=== PATIENT | male | born 1940 | race Caucasian/White ===

== ENCOUNTER → 2017-07-13 12:58 | Outpatient (CLI) | payer MEDICARE, SELFPAY ==
--- NOTE | 2017-07-13 13:00 | ECHOD_ITS ---
Reason For Study: CAD Procedure This was a 2D Doppler, Color Flow transthoracic echocardiogram. The study was technically difficult. The study was technically limited. Poor parasternal windows. Exam performed in department. Left Ventricle Normal size and thickness. The estimated ejection fraction is 65 %. Stage 1 diastolic dysfunction. No regional wall motion abnormalities noted. Right Ventricle Normal size and thickness. Normal systolic function. Atria Normal left atrium. Normal right atrium. Normal atrial septum. Mitral Valve The mitral valve is structurally normal. No prolapse or stenosis seen. Tricuspid Valve Normal tricuspid valve. Unable to estimate RV systolic pressure/pulmonary artery pressure due to technically difficult study. Aortic Valve Trisinus/trileaflet aortic valve. Normal aortic valve. Pulmonic Valve The pulmonic valve is not well visualized. Great Vessels Normal aortic root. Normal arch. Normal inferior vena cava. Inferior vena cava collapse with sniff. Pericardium/Pleural No pericardial effusion. MMode/2D Measurements & Calculations LVIDd: 3.8 cm IVSd: 1.1 cm Ao root diam: 3.4 cm LVIDs: 2.5 cm LVPWd: 0.94 cm LA dimension: 2.5 cm RVDd: 3.2 cm FS: 33.6 % LAV(MOD-bp): 28.9 ml LA A4 area: 11.2 cm2 RA A4 area: 9.1 cm2 LAV(MOD-bp) Indexed: 13.9 ml/m2 LAV(MOD-sp2): 32.0 ml LAV(MOD-sp4): 23.9 ml Doppler Measurements & Calculations MV E max joni: 50.2 cm/sec Ao V2 max: 153.5 cm/sec LV V1 max: 143.5 cm/sec MV A max joni: 85.5 cm/sec Ao max P.4 mmHg LV V1 max P.2 mmHg MV E/A: 0.59 PA V2 max: 121.8 cm/sec Interpretation Summary The estimated ejection fraction is 65 %. Stage 1 diastolic dysfunction. Unable to estimate RV systolic pressure/pulmonary artery pressure due to technically difficult study. The study was technically difficult. There is no comparison study available. Ordering Physician: Haider Caldwell Referring Physician: LORENA FIGUEROA Performed By: Iman Suarez, OBI, RVT
== END ==
PROVIDERS: Family Provider Family Medicine; PCP Family Medicine; Visit Provider Internal Medicine Cardiovascular Disease
DX: I25.10 Atherosclerotic heart disease of native coronary artery without angina pectoris (principal)
CPT/HCPCS: 93306

== ENCOUNTER → 2017-07-14 09:02 | Outpatient (CLI) | payer MEDICARE, SELFPAY ==
[2017-06-28 15:28] VITALS: BP 120/60; BMI 26.0
[2017-07-14 10:13] LABS: AST(SGOT) 11 U/L (15-37); Alanine Aminotransfer ALT/SGPT 20 U/L (16-61); Albumin, Serum 3.8 g/dL (3.2-5.0); Alkaline Phosphatase 80 U/L (45-117); Bilirubin, Direct 0.15 mg/dL (0.00-0.30); Cholesterol 161 mg/dL (200); Globulin 3.5 g/dL (2.2-4.2); High Density Lipoprotein 51 mg/dL; Protein, Total 7.3 g/dL (6.4-8.2); Triglycerides 105 mg/dL; Very Low Density Lipoprotein 21 mg/dL (5-40)
== END ==
PROVIDERS: Family Provider Family Medicine; PCP Family Medicine; Visit Provider Internal Medicine Cardiovascular Disease
DX: R07.9 Chest pain, unspecified (principal); E11.9 Type 2 diabetes mellitus without complications; E78.5 Hyperlipidemia, unspecified; I25.118 Atherosclerotic heart disease of native coronary artery with other forms of angina pectoris
CPT/HCPCS: 36415; 80061; 80076

== ENCOUNTER → 2017-07-29 12:07 | Outpatient (CLI) | payer MEDICARE, SELFPAY ==
--- NOTE | 2017-07-29 13:00 | STEWCON_ITS ---
Reason For Study: Chest Pain, CAD Stress Results Protocol: Jeffrey Protocol Maximum Predicted HR: 143 bpm Target HR: 122 bpm% Max imum Predicted HR: 92 % DurationHeart Rate Stage (mm:ss) (bpm) BPCom ment Baseline 82 136/82 Definity 4 ML Diluted Given Jeffrey Protocol Stage I 3:00 82 204/80 Jeffrey Protocol Stage II 1:45 13 1 / Recovery 90 154/90 Stress Duration: 4:45 mm:ss Maximum Stress HR: 131 bpmM ETS: 7 Baseline Echocardiogram Findings The estimated ejection fraction is 65 %. Stress Echo Wall motion Data Resting WMIntermediate WMStress WM Resting Wall Motion Wall Motion Stress No regional wall motion Mid-Anterior : Mildly abnormalities noted. hypokinetic. Lateral [place] : Mildly hypokinetic. EKG Data Normal intervals are noted. The patient exercised according to the regular Jeffrey protocol for a total duration of 4:45. The maximum heart rate attained was 131 beats per minute. This was 91% of maximum predicted heart rate. The patient exercised into stage 2 of the Jeffrey protocol. At peak exercise, upsloping ST changes only were noted, which did not meet the criteria for ischemia. No clinical angina was noted. Interpretation Summary The estimated ejection fraction is 65 %. Mid-Anterior : Mildly hypokinetic Lateral [place] : Mildly hypokinetic Abnormal, adequate, treadmill echocardiogram. Positive for ischemia by echocardiographic criteria. Patient developed mid anterior lateral and anterior apical hypokinesis at peak exercise. Hypertensive blood pressure response to exercise. Rare PVCs and one ventricular triplet during exercise. Below average exercise capacity for age. No anginal symptoms noted. Test terminated due to dyspnea. No complications. Patient referred for left heart catheterization in the next few days. Ordering Physician: Haider Caldwell Referring Physician: YAIR Piedra M.D. Performed By: Iman Suarez, OBI, RVT
--- NOTE | 2017-07-29 13:14 | RAD_ITS ---
STUDY: X-RAY CHEST REASON FOR EXAM: Male, 77 years old. Chronic shortness of breath. TECHNIQUE: 2 views of the chest were obtained COMPARISON: None. FINDINGS: No lung consolidation or pneumothorax seen. Left lingular subsegmental atelectasis and/or scarring. There are likely chronic deformities of the right-sided posterior ribs present. Degenerative changes in the thoracic spine. Cardiac size is within normal limits. Subtle blunting of the costophrenic angles noted may relate with pleural thickening or small pleural effusions. Subtle nodular density on the lateral radiograph noted possibly overlapping vasculature however this can be further assessed with chest CT to exclude underlying mass is not seen on the AP radiograph however RAD/Chest PA and Lateral IMPRESSION: No evidence for lung consolidation or pneumothorax. Blunting of the costophrenic angles with flattening of the hemidiaphragm may relate with COPD. Subtle nodular density noted on the lateral radiograph and not appreciated on the AP radiograph possibly overlapping vasculature however this can be further assessed with chest CT to exclude underlying mass. Electronically Signed: Aryan Branch, at 13:01 EST Tel , Service support ,
[2017-07-29 15:14] LABS: Hemoglobin 16.7 g/dl (13.0-16.5); Mean Corp Hgb Conc 34.1 g/gl (32-36); Mean Corpuscular Hgb 30.6 pg (27.0-32.0); Mean Corpuscular Volume 89.7 fL (80-94); Mean Platelet Vol. 10.9 fl (6.2-12.0); Platelet Count 223 K/mm3 (150-450); RBC Distribution Width CV 12.9 % (11.6-14.6); RBC Distribution Width SD 42.2 fl (35.1-43.9); Red Blood Count 5.46 M/mm3 (4.6-6.2); White Blood Count 6.9 K/mm3 (4.4-11.0)
[2017-07-29 15:22] LABS: Anion Gap 8 (5-15); BUN 22 mg/dL (7-18); BUN/Creat Ratio 22.9 RATIO (10-20); Chloride 105 mmol/L (98-107); Creatinine, Serum 0.96 mg/dL (0.70-1.30); EST Glomerular Filtration Rate 81 mL/min (>60); Est Glom Filt Rate - Afr Amer 98 mL/min (>60); Glucose 123 mg/dL (74-106); Potassium 4.4 mmol/L (3.5-5.1); Sodium Level 139 mmol/L (136-145)
[2017-07-29 15:28] LABS: Prothrombin Time (Protime)PT. 12.5 SECONDS (11.7-14.9)
[2017-07-29 15:29] LABS: Partial Thromboplast Time 32.7 Seconds (24.1-36.2)
[2017-07-29 15:33] LABS: Scan Indicated on CBC? Y/N NO
== END ==
PROVIDERS: Family Provider Family Medicine; PCP Family Medicine; Visit Provider Internal Medicine Cardiovascular Disease
DX: R07.9 Chest pain, unspecified (principal); I25.10 Atherosclerotic heart disease of native coronary artery without angina pectoris; R06.02 Shortness of breath; R94.39 Abnormal result of other cardiovascular function study
CPT/HCPCS: 36415; 71046; 80048; 85027; 85610; 85730; 93017; 93350; Q9957; A4216; C8928

== ENCOUNTER → 2017-08-01 09:29 | Outpatient (CLI) | payer MEDICARE, SELFPAY ==
--- NOTE | 2017-08-01 09:38 | RAD_ITS ---
STUDY: AIR-CONTRAST UPPER GI SERIES. REASON FOR EXAM: Male, 77 years old. Gastroesophageal reflux disease. History of the head and neck cancer and radiation therapy. FLUOROSCOPY TIME (if supplied): (0:54) minutes/seconds TECHNIQUE: The patient ingested barium. Multiple images of the esophagus, stomach and duodenum were obtained. COMPARISON: None. FINDINGS: I suspect aphthous ulcers within the esophagus. There is no evidence of obstruction. No mass lesion is seen. There is no evidence of gastroesophageal reflux. The stomach and duodenum are unremarkable. RAD/Upper GI Series Only IMPRESSION: Findings suggestive of aphthous ulcers of the esophagus. Electronically Signed: Lance Sibley MD at 15:51 EST Tel [phone], Service support ,
== END ==
PROVIDERS: Family Provider Family Medicine; PCP Family Medicine; Visit Provider Surgery
DX: K21.9 Gastro-esophageal reflux disease without esophagitis (principal)
CPT/HCPCS: 74246

== ENCOUNTER 2017-08-02 06:51 | Day surgery (SDC) | payer MEDICARE, SELFPAY ==
[2017-08-01 11:24] VITALS: BMI 26.0
[2017-08-02] VITALS (22 sets, daily range): BP systolic 144–187; BP diastolic 59–95; PULSE 53–67; RESP 16–22; TEMP 36.2–36.9; O2SAT 94–98; BMI 26.6; BMI 26.0
--- NOTE | 2017-08-02 09:44 | CL.I_ITS ---
Patient Name: JOSE ARMANDO ARNETT Study Date: 08/02/2017 Performing: Haider Caldwell MD Ht: 72.05 inches 183 cm : 1940 Wt: 191.8 lbs 87 kg Age: 77 Gender: male BSA: 2.09 PROCEDURE(S) PERFORMED [id number]/LV [id number] W OR WO PTCA, SINGLE CORONARY ARTERY [id number] W OR WO PTCA, EACH ADD'L ARTERY, SAME MAJOR CLINICAL PROFILE AND CO-MORBIDITIES INDICATIONS: Unstable Angina Stress/Imaging Stress Echocardiogram: Yes Result: Positive High Risk Stress Echocardiogram: Posit meghana High Risk Angina Classification Anginal Classification w/in 2 Weeks: CCS II CAD Presentations: Unstable angina. Comorbidities/Risk Factors: Current/Recent Smoker (< 1year) Hypertension Dyslipidemia Diabetes Mellitus: Diabetes Therapy: Oral CONCLUSIONS Double vessel CAD of the LAD and DIAG#1 Non obstructive coronary arteries Normal LV size, wall motion,and systolic function Normal Left Ventricular End Diastolic Pressure Successful PTCA/BEATRIZ of the of mid LAD with a 3.0 x 16 Promus Synergy; 75%-->0%, no dissection. Successful PTCA/BEATRIZ of the mid DIAG#1 with a 2.25 x 8 promus Synergy; 75%-->0%, no dissection. Successful PCI with PTCA to the ostial DIAG#1 with a 2.0 x 8 Balloon after LAD stent deployment; 85%- ->40%, no dissection. RECOMMENDATIONS Referred for immediate PCI Highly recommend quitting all tobacco products Follow up with primary home visitor Risk factor modification ASA Indefinitley Plavix for at least 12 months Routine post interventional care Refer for Outpatient Cardiac Rehab Manual sheath removal per protocol Medical management of distal LAD/DIAG#2 due to complex bifurcating lesion. IF pt has recurrent angin a in future, will consider PCI of distal LAD and DIAG, as well as FFR of mid RCA. Manual sheath removal in laborer cook house. DESCRIPTION OF PROCEDURE The patient arrived to the procedure lab. The risks and benefits of the procedure as well as a full d escription of our services here and lack of surgical backup were fully explained to the patient and/o r their significant other prior to the catheterization. The Timeout was completed, verifying the jama ect patient and procedure. The patient's procedural site was prepped and draped in the usual fashion. Local anesthetic was given subcutaneously to right groin region with Lidocaine 2%. Using a modified Seldinger technique, arterial access was obtained via the right femoral artery, a 4Fr sheath was inse rted. Left Coronary Artery selective angiography was performed in multiple views using a 4 Fr. JL5 c atheter. Right Coronary Artery selective angiography was then performed in multiple views using a 4 F r. 3DRC catheter. Left Ventriculography was performed in HSU projection using a 4 Fr. Pigtail cathete r. LV to AO pullback pressures were then recorded Arterial sheath was exchanged for a 6 Fr 45cm Sheath 3.75 EBU Guide catheter was inserted and engaged into the LCA. BMW Guide wire was advanced to the LAD. 2x12 Emerge Balloon catheter was inserted. Bal loon catheter was advanced across lesion in the LAD, mid. PTCA balloon inflated at 12 atms for 10 sec s PTCA balloon inflated at 12 atms for 8 secs BMW #2 Guide wire was advanced to the 1st Diagonal. 2x8 Emerge Balloon catheter was inserted. Balloon catheter was advanced across lesion in the first diago nal, mid. PTCA balloon inflated at 6 atms for 30 secs PTCA balloon inflated at 6 atms for 20 secs 2.2 5x8 Synergy Drug Eluting stent was inserted Drug Eluting stent was advanced across the lesion in the first diagonal, mid. 3x16 Synergy Drug Eluting stent was inserted Drug Eluting stent was advanced acr oss the lesion in the LAD, mid. Angiogram performed post stent deployment. BMW Guide wire was advance d to the 1st Diagonal. 2x8 Emerge Balloon catheter was inserted. Balloon catheter was advanced across lesion in the first diagonal, ostial. PTCA balloon inflated at 6 atms for 8 secs PTCA balloon inflat ed at 8 atms for 22 secs PTCA balloon inflated at 12 atms for 14 secs Angiogram performed post balloo n dilatation. Arterial sheath was exchanged for a 6 Fr 11cm Sheath. . The arterial sheath was suture d in place and capped. The arterial sheath was pulled and manual compression applied until hemostasis is achieved.. CORONARY ANGIOGRAPHY DOMINANCE: Right Dominant LEFT HEART ASSESSMENT Left Ventricular Ejection Fraction: by LV Gram 65 % Normal Left Ventricular systolic function Normal Left Ventricular End Diastolic Pressure Normal LV wall motion LEFT MAIN: Angiographically normal LEFT ANTERIOR DECENDING ARTERY: MID LAD: 75 % Stenosis DISTAL LAD: 50 % Stenosis DIAGONAL 1: Mid - 75 % Stenosis DIAGONAL 2: Ostial - 60 % Stenosis CIRCUMFLEX ARTERY: Mild luminal irregularities less than 30% RIGHT CORONARY ARTERY: MID RCA: 60 % Stenosis INTERVENTION INFORMATION LESION SITE: LAD (Mid) Lesion Complexity: Non-High/Non-C, lesion at bifurcation: Yes, thrombus present: No, culprit lesion: Yes, lesion length: 16 mm, culprit lesion: Yes Pre Stenosis: 75 % Pre intervention SADAF flow: 3 PROCEDURE: Drug Eluting Stent with pre dilatation. Post Stenosis: 0 % Post intervention SADAF flow: 3 Lesion Devices: Rivera .014 BMW Mims Straight 190cm Research Journalisttronic 6 Fr EBU3.75 100cm Guide Catheter Michael Sci EMERGE MR 2.00x12 BALLOON Michael Sci Synergy MR BEATRIZ 3.00x16 LESION SITE: 1st Diagonal (Mid) Lesion Complexity: Non-High/Non-C, lesion at bifurcation: No, thrombus present: No, culprit lesion: N o Pre Stenosis: 75 % Pre intervention SADAF flow: 3 PROCEDURE: Drug Eluting Stent with pre dilatation. Post Stenosis: 0 % Post intervention SADAF flow: 3 Lesion Devices: Rivera .014 BMW Mims Straight 190cm Michael Sci EMERGE MR 2.00x08 BALLOON Michael Sci Synergy MR BEATRIZ 2.25x08 LESION SITE: 1st Diagonal (Ostial) Lesion Complexity: Non-High/Non-C, lesion at bifurcation: Yes, thrombus present: No, lesion length: 8 mm, culprit lesion: No Pre Stenosis: 85 % Pre intervention SADAF flow: 3 PROCEDURE: Balloon Angioplasty 40 % Post intervention SADAF flow: 3 Lesion Devices: Rivera .014 BMW Mims Straight 190cm Michael Sci EMERGE MR 2.00x08 BALLOON COMPLICATIONS No Complications PROCEDURE MEDICATIONS Oxygen: 2 L/min via nasal cannula Heparin 4000 unit(s) IV 08/02/2017 08:55:44 Nitro 200 mcg IC 08/02/2017 08:56:35 Nitro 200 mcg IC 08/02/2017 08:56:35 SUMMARY OF HEMODYNAMIC DATA Time AIR REST ECG 07:28:09 ECG 07:28:20 AO 124/71 (93) SA 08:42:37 LV 116/2, 5 08:49:17 LV 129/4, 9 08:49:43 LVp 126/2, 7 08:49:49 AOp 134/66 (96) 08:49:54 Signed By Haider Caldwell MD On 08/02/2017 10:08:25 Signed By Haider Caldwell MD On 08/02/2017 09:43:48 Haider Caldwell MD
[2017-08-02 10:06] LABS: ACT Activated Clotting Time 147 sec (74-137)
--- NOTE | 2017-08-02 10:20 | EKG12_ITS ---
Test Reason : Blood Pressure : / mmHG Vent. Rate : 056 BPM Atrial Rate : 056 BPM P-R Int : 172 ms QRS Dur : 074 ms QT Int : 414 ms P-R-T Axes : 075 069 064 degrees QTc Int : 399 ms Sinus bradycardia Otherwise normal ECG When compared with ECG of 12-FEB-2010 15:11, No significant change was found Confirmed by RAISA MAO, YARITZA ([id number]), editorial director JOANA AARON ([id number]) on 08/03/2017 2:40:47 PM Referred By: Haider Caldwell Confirmed By:YARITZA KLINE MD
[2017-08-02 10:31] LABS: Bedside Glucose 99 mg/dL (70-110)
[2017-08-02 10:37] LABS: Hematocrit 43.2 % (40-54); Hemoglobin 14.6 g/dl (13.0-16.5); Mean Corp Hgb Conc 33.8 g/gl (32-36); Mean Corpuscular Hgb 30.8 pg (27.0-32.0); Mean Corpuscular Volume 91.1 fL (80-94); Mean Platelet Vol. 10.2 fl (6.2-12.0); Platelet Count 192 K/mm3 (150-450); RBC Distribution Width CV 12.8 % (11.6-14.6); RBC Distribution Width SD 42.4 fl (35.1-43.9); Red Blood Count 4.74 M/mm3 (4.6-6.2); White Blood Count 6.4 K/mm3 (4.4-11.0)
[2017-08-02 10:41] LABS: Scan Indicated on CBC? Y/N NO
[2017-08-02 10:48] LABS: CPK Total, Creatine Kinase 73 U/L (39-308)
--- NOTE | 2017-08-02 11:12 | CRPHASE1 ---
Patient Data/Charges Former Patient:: Phase I Customer Success Director:: Haider Caldwell Admit Date:: 08/02/17 Phase I Charge:: Level I - Education Risk Factors/Lifestyle Smoking Status: Current every day smoker Packs Smoked per Day: 1 Hx Hypertension: Yes Hx Diabetes Mellitus Type 2: No - ON MEDS Height: 1.83 m Weight:: 87.09 kg BMI: 26.0 Caffeine: Yes Risk Factor for Sedentary Lifestyle: Moderate Risk Family History: Family History (Last Reviewed 07/26/17 @ 08:11 by Teri Fragoso) Father Myocardial infarction CAD (coronary artery disease) Sudden cardiac Mother Congestive heart failure Sister No problems noted. Family History: Diabetes, Heart Disease Past Cardiac Illness: Coronary Artery Disease, Other - PREVIOUS CATH 2001 ON MEDS/DIET Phase I Education Given On:: [place], Nutrition, Antiplatelet medication, CHF, Smoking cessation, Diabetes - Type II Issues Affecting Care:: None Knowledge of Condition:: Yes Hospital Course Pain Description: Burning Cardiac Cath Date:: 08/02/17 Medical/Surgical History [place]:: No Pulmonary:: Yes COPD:: Yes Diabetes:: Yes Hypertension:: Yes GERD:: Yes Discharge/Home/Social Eval Discharge Disposition: Home Marital Status: Patient Lives With::
[2017-08-02] MEDS: Nitroglycerin Oint 1 INCH PACKET TRANSDERM. (11:15)
--- NOTE | 2017-08-02 11:18 | CRPHASE1_ITS ---
Patient Data/Charges Former Patient:: Phase I Production Material Coordinator:: Haider Caldwell Admit Date:: 08/02/17 Phase I Charge:: Level I - Education Risk Factors/Lifestyle Smoking Status: Current every day smoker Packs Smoked per Day: 1 Hx Hypertension: Yes Hx Diabetes Mellitus Type 2: No - ON MEDS Height: 1.83 m Weight:: 87.09 kg BMI: 26.0 Caffeine: Yes Risk Factor for Sedentary Lifestyle: Moderate Risk Family History: Family History (Last Reviewed 07/26/17 @ 08:11 by Teri Fragoso) Father Myocardial infarction CAD (coronary artery disease) Sudden cardiac Mother Congestive heart failure Sister No problems noted. Family History: Diabetes, Heart Disease Past Cardiac Illness: Coronary Artery Disease, Other - PREVIOUS CATH 2001 ON MEDS/DIET Phase I Education Given On:: [place], Nutrition, Antiplatelet medication, CHF, Smoking cessation, Diabetes - Type II Issues Affecting Care:: None Knowledge of Condition:: Yes Hospital Course Pain Description: Burning Cardiac Cath Date:: 08/02/17 Medical/Surgical History [place]:: No Pulmonary:: Yes COPD:: Yes Diabetes:: Yes Hypertension:: Yes GERD:: Yes Discharge/Home/Social Eval Discharge Disposition: Home Marital Status: Patient Lives With::
--- NOTE | 2017-08-02 11:20 | CRPH1.INST_ITS ---
General Education CAD and cardiac anatomy and function:: Patient communicates acknowledgment, Family communicates acknowledgment Explanation of diagnoses and procedures:: Patient communicates acknowledgment, Family communicates acknowledgment Sign/Symptoms of NM:: Patient communicates acknowledgment, Family communicates acknowledgment Antiplatelet therapy: Patient communicates acknowledgment, Family communicates acknowledgment Proper use of NTG-SL: Patient communicates acknowledgment, Family communicates acknowledgment Emergency procedures and activation of EMS: Patient communicates acknowledgment , Family communicates acknowledgment Compliance of all prescribed medications: Patient communicates acknowledgment, Family communicates acknowledgment Smoking Patient Nicotine/Smoking Risk Factors Are:: Cigarettes - 60 years Nicotine/Smoking Response Code:: Patient communicates acknowledgment, Family communicates acknowledgment - not interested Dyslipidemia Recommendations Include:: Lipid profile not available Overweight/Obesity Patient Overweight/Obesity Risk Factors Are:: Overweight = 26-29 Overweight/Obesity:: Patient communicates acknowledgment, Family communicates acknowledgment Hypertension Recommendations Include:: Maintain BP <130/85, BP <130/80 if diabetic Hypertension:: Patient communicates acknowledgment, Family communicates acknowledgment Heart Disease Patient Heart Disease Risk Factors Are:: Family history of heart disease < 65 years old, Previous cardiac event Heart Disease Response Code:: Patient communicates acknowledgment, Family communicates acknowledgment Diabetes Diabetes:: Patient communicates acknowledgment, Family communicates acknowledgment - ON MEDS Metabolic Syndrome Recommendations Include:: Patient is diabetic Sedentary Patient Sedentary Risk Factors Are:: Lack of regular exercise Sedentary Response Code:: Patient communicates acknowledgment, Family communicates acknowledgment Stress Patient Stress Risk Factors Are:: Patient denies stress as a risk factor
[2017-08-02 11:41] LABS: M R Staph aureus DNA By PCR Negative (Negative); Probe Check PASS; Specimen Processing Control PASS
[2017-08-02] MEDS: Albuterol 2.5 MG/3 ML VIAL.NEB. INHALATION ×2 (13:15→18:34)
--- NOTE | 2017-08-02 15:57 | PCM.PN.BLA ---
Progress Note Pt. is not on a beta bety d/t underlying history of Sinus Bradycardia.
--- NOTE | 2017-08-02 16:11 | DCINST_ITS ---
Discharge Diet: Low fat/ Low Cholesterol Discharge Activity: Return to Normal Activity May shower in (days): 1 May resume sexual activity in: 1-2 weeks Lifting Restrictions: Do not lift anything greater than 10 pounds for three days Call your doctor if your incision/area has: Continuous Slow Oozing, Sudden Increased Bleeding, Increased Pain/ Swelling, Increased Redness, Foul Smelling Discharge, Swelling at the incision site Call your doctor if you observe: Fever of 101 or Higher, Shortness of breath, Chest pain Remove Dressing in (days):: 1 Cleanse incision/area with: Soap & Water Additional Instructions: You will be on Plavix for at least one year. If anyone asks you to stop it, please call the [facility] first. If you run low on pills or need a new prescription please call our office at [phone]. You will be on aspirin for life. You are schedule for an office visit follow-up appointment with Dwaine Savage Nurse Practitioner, on September 13 at 10:30 AM in the office. Allergies/Adverse Reactions: Allergies No Known Allergies Allergy (Verified 07/26/17 08:12) Medications to take at Discharge albuterol sulfate 2.5 mg/3 mL (0.083 %) solution for nebulization 2.5 mg INHALATION BID ml 06/24/17 aspirin 81 mg tablet,delayed release 81 mg PO QDAY 06/24/17 budesonide-formoterol HFA 160 mcg-4.5 mcg/actuation aerosol inhaler 2 puff INHALATION Q12H 06/24/17 cyanocobalamin (vit B-12) 1,000 mcg tablet 1,000 mcg PO QDAY 06/24/17 levothyroxine 150 mcg capsule 150 mcg PO QDAY cap 06/24/17 lorazepam 0.5 mg tablet 0.5 mg PO QDAY PRN tab 06/24/17 omeprazole 20 mg capsule,delayed release 20 mg PO QDAY 06/24/17 paroxetine 20 mg tablet 20 mg PO QDAY 06/24/17 thiamine HCl (vitamin B1) 100 mg tablet 50 mg PO QDAY tab 06/24/17 atorvastatin 80 mg tablet 80 mg PO QDAY 06/28/17 lisinopril 10 mg tablet 10 mg PO BID tab 06/28/17 metformin 500 mg tablet 500 mg PO DAILY tab 07/26/17 Clopidogrel Bisulfate [Clopidogrel] 75 mg PO DAILY 08/01/17 Isosorbide Mononitrate [Imdur] 30 mg PO DAILY tablet 08/03/17 Primary Care Physician: Xander Piedra III, MD [Primary Care Provider] - Please Follow Up With: Dwaine Huerta - [facility] Nurse Practitioner When: September 13, 2017 at 10:30 AM Please Follow Up With: [facility] RN/MA - blood pressure check When: August 19, 2017 at 10:00 AM Cardiac Rehabilitation Info Cardiac Rehabilitation Program Information: Cardiac Rehabilitation is important for patients like you who are recovering from a heart problem. Cardiac rehabilitation programs are recognized as integral to the continued care of the patient with coronary heart disease. The cardiac rehabilitation program is designed to optimize a patient's physical, psychological, and social functioning. Health day care supervisor work in cardiac rehabilitation programs and assist you with getting the treatments you need to get stronger and healthier - like exercise, healthy eating habits, and medications. Cardiac rehabilitation has been show to help people with heart problems live longer and have better life enjoyment than people who do not go to cardiac rehabilitation. Please contact the Cardiac Rehabilitation Program at [facility] at in two weeks if you have not heard from them.
[2017-08-02] MEDS: Thiamine Hydrochloride 100 MG Tablet 50 MG PO (16:34)
[2017-08-02] MEDS: Pantoprazole Sodium 20 MG Tablet PO (16:34)
[2017-08-02] MEDS: Cyanocobalamin 500 MCG Tablet 1000 MCG PO (16:35)
[2017-08-02 16:36] LABS: Hematocrit 41.8 % (40-54); Mean Corp Hgb Conc 33.5 g/gl (32-36); Mean Corpuscular Hgb 30.6 pg (27.0-32.0); Mean Corpuscular Volume 91.5 fL (80-94); Mean Platelet Vol. 9.8 fl (6.2-12.0); Platelet Count 174 K/mm3 (150-450); RBC Distribution Width CV 13.1 % (11.6-14.6); RBC Distribution Width SD 43.3 fl (35.1-43.9); Red Blood Count 4.57 M/mm3 (4.6-6.2); White Blood Count 5.5 K/mm3 (4.4-11.0)
[2017-08-02 16:37] LABS: Scan Indicated on CBC? Y/N NO
[2017-08-02 16:45] LABS: Bedside Glucose 133 mg/dL (70-110)
[2017-08-02 16:52] LABS: CPK Total, Creatine Kinase 60 U/L (39-308)
[2017-08-02] MEDS: Atorvastatin Calcium 80 MG Tablet PO (18:05)
[2017-08-02] MEDS: Budesonide Respules 0.5 MG/2 ML AMPUL.NEB. INHALATION (18:34)
[2017-08-02] MEDS: 0.9% NaCl Peripheral Flush Adult/Peds IV (21:13)
[2017-08-02] MEDS: Lisinopril 10 MG Tablet PO (21:13)
[2017-08-02 21:27] LABS: Hemoglobin 13.4 g/dl (13.0-16.5); Mean Corp Hgb Conc 33.5 g/gl (32-36); Mean Corpuscular Hgb 30.7 pg (27.0-32.0); Mean Corpuscular Volume 91.7 fL (80-94); Mean Platelet Vol. 9.8 fl (6.2-12.0); Platelet Count 171 K/mm3 (150-450); RBC Distribution Width CV 12.8 % (11.6-14.6); RBC Distribution Width SD 42.1 fl (35.1-43.9); Red Blood Count 4.36 M/mm3 (4.6-6.2); White Blood Count 6.1 K/mm3 (4.4-11.0)
[2017-08-02 21:31] LABS: Scan Indicated on CBC? Y/N NO
[2017-08-02 21:47] LABS: CPK Total, Creatine Kinase 56 U/L (39-308)
[2017-08-02 22:26] LABS: Bedside Glucose 170 mg/dL (70-110)
[2017-08-03] VITALS (14 sets, daily range): BP systolic 134–176; BP diastolic 53–97; PULSE 33–78; RESP 12–24; TEMP 36.6–37; O2SAT 94–98
[2017-08-03 02:06] LABS: Bedside Glucose 129 mg/dL (70-110)
[2017-08-03 04:27] LABS: Hematocrit 40.5 % (40-54); Hemoglobin 13.2 g/dl (13.0-16.5); Mean Corp Hgb Conc 32.6 g/gl (32-36); Mean Platelet Vol. 10.4 fl (6.2-12.0); Platelet Count 160 K/mm3 (150-450); RBC Distribution Width SD 43.5 fl (35.1-43.9); White Blood Count 7.1 K/mm3 (4.4-11.0)
[2017-08-03 04:28] LABS: Scan Indicated on CBC? Y/N NO
[2017-08-03 04:39] LABS: Anion Gap 7 (5-15); BUN 15 mg/dL (7-18); BUN/Creat Ratio 21.8 RATIO (10-20); Calcium,Total 7.9 mg/dL (8.5-10.1); Chloride 108 mmol/L (98-107); Cholesterol 115 mg/dL (200); Creatinine, Serum 0.69 mg/dL (0.70-1.30); EST Glomerular Filtration Rate 119 mL/min (>60); Est Glom Filt Rate - Afr Amer 143 mL/min (>60); Glucose 133 mg/dL (74-106); High Density Lipoprotein 40 mg/dL; Potassium 4.2 mmol/L (3.5-5.1); Sodium Level 142 mmol/L (136-145); Triglycerides 112 mg/dL; Very Low Density Lipoprotein 22 mg/dL (5-40)
[2017-08-03] MEDS: Levothyroxine 150 MCG Tablet PO (05:50)
--- NOTE | 2017-08-03 05:55 | EKG12_ITS ---
Test Reason : AM EKG Blood Pressure : / mmHG Vent. Rate : 060 BPM Atrial Rate : 060 BPM P-R Int : 154 ms QRS Dur : 086 ms QT Int : 386 ms P-R-T Axes : 076 068 054 degrees QTc Int : 386 ms Normal sinus rhythm with sinus arrhythmia Normal ECG When compared with ECG of 02-AUG-2017 10:33, MANUAL COMPARISON REQUIRED, DATA IS UNCONFIRMED Confirmed by RAISA MAO, YARITZA ([id number]), multimedia editor JOANA AARON ([id number]) on 08/10/2017 1:33:07 PM Referred By: Haider Caldwell Confirmed By:YARITZA KLINE MD
[2017-08-03 05:56] LABS: Bedside Glucose 144 mg/dL (70-110)
[2017-08-03] MEDS: Budesonide Respules 0.5 MG/2 ML AMPUL.NEB. INHALATION (06:48)
[2017-08-03] MEDS: Albuterol 2.5 MG/3 ML VIAL.NEB. INHALATION (06:48)
[2017-08-03] MEDS: Thiamine Hydrochloride 100 MG Tablet 50 MG PO (07:59)
[2017-08-03] MEDS: Pantoprazole Sodium 20 MG Tablet PO (08:00)
[2017-08-03] MEDS: Clopidogrel Bisulfate 75 MG Tablet PO (08:00)
[2017-08-03] MEDS: Lisinopril 10 MG Tablet PO (08:00)
[2017-08-03] MEDS: Cyanocobalamin 500 MCG Tablet 1000 MCG PO (08:00)
[2017-08-03] MEDS: Atorvastatin Calcium 80 MG Tablet PO (08:00)
[2017-08-03] MEDS: Aspirin E.C. 81 MG Tablet PO (08:00)
--- NOTE | 2017-08-03 10:04 | PCM.PN.CARD ---
Subjectve: Patient did well overnight, but did have an episode of severe hypertension this morning followed by bradycardia and tunnel vision. Right groin is clean/dry/intact without evidence of thrills, bruits or hematoma. Patient was started on low-dose Nitropaste last evening for hypertension and did well. The symptoms are similar to what he had at home prior to angioplasty. He is not on a beta-bety due to his bradycardia. CKs are negative. Hemoglobin and creatinine within nominal limits. Objective: Vital Signs Temp Pulse Resp BP Pulse Ox 97.9 F 65 16 153/97 H 96 08/03/17 04:00 08/03/17 07:00 08/03/17 06:50 08/03/17 06:00 08/03/17 06:50 Oxygen Delivery Method Room Air Weight: 191 lb 5.78 oz Body Mass Index (BMI) 26.6 Intake and Output for Last 24 Hours 08/01/17 08/02/17 08/03/17 23:59 23:59 23:59 Intake Total 2119 / 2119 1362 / 1362 Output Total 1000 / 1000 2100 / 2100 Balance 1119 / 1119 -738 / -738 General: Awake, Alert, Oriented x 3 HEENT: PERRL, EOMI, Sclera Non Icteric Neck: Supple, Good ROM, No Lymph Node Enlargement Lungs: Clear to auscultation Cardiovascular: Regular Rhythm, Normal S1, Normal S2, No Murmurs, No Rubs, No Gallops Vascular: No Carotid Bruits, Normal Femoral Pulses, Normal Radial Pulses, Normal Dorsalis Pedal Pulse, Normal Posterior Tibial Pulses Abdomen: Bowel Sounds Present, Soft, Non Tender, No HSM, No Organomegaly Extremities: No Cyanosis, No Clubbing, No edema Neurological: No Focal Motor or Sensory Deficit 08/02/17 10:26: WBC 6.4, RBC 4.74, Hgb 14.6, Hct 43.2, MCV 91.1, MCH 30.8, MCHC 33.8, RDW 12.8, RDW Differential 42.4, Plt Count 192, MPV 10.2 08/02/17 16:30: WBC 5.5, RBC 4.57 L, Hgb 14.0, Hct 41.8, MCV 91.5, MCH 30.6, MCHC 33.5, RDW 13.1, RDW Differential 43.3, Plt Count 174, MPV 9.8 08/02/17 21:15: WBC 6.1, RBC 4.36 L, Hgb 13.4, Hct 40.0, MCV 91.7, MCH 30.7, MCHC 33.5, RDW 12.8, RDW Differential 42.1, Plt Count 171, MPV 9.8 08/03/17 04:15: Sodium 142, Potassium 4.2, Chloride 108 H, Carbon Dioxide 27.0, Anion Gap 7, BUN 15, Creatinine 0.69 L, Est GFR (MDRD) Af Amer 143, Est GFR (MDRD) Non-Af 119, BUN/Creatinine Ratio 21.8 H, Glucose 133 H, Calcium 7.9 L, Triglycerides 112, Cholesterol 115, LDL Cholesterol 53, VLDL Cholesterol 22, HDL Cholesterol 40 08/03/17 04:15: WBC 7.1, RBC 4.40 L, Hgb 13.2, Hct 40.5, MCV 92.0, MCH 30.0, MCHC 32.6, RDW 13.0, RDW Differential 43.5, Plt Count 160, MPV 10.4 Rhythm: EKG: Normal sinus rhythm/sinus bradycardia, no acute changes. ECHO: Stress Test: Cardiac Cath: PCI: CT Surgery: Holter monitor: EPS: PPM: CXR: Chest CT Scan: Assessment/Plan 1. Coronary artery disease: The patient is status post angioplasty and drug-eluting stent to the mid LAD followed by stenting of the mid diagonal as well. Distal LAD/diagonal disease with left for medical management due to the complex nature of the bifurcating lesion. Patient had minimal disease of his left circumflex and mid RCA. This point the patient will continue baby aspirin and Plavix going forward, and we will initiate Imdur were 30 mg p.o. daily and titrate up from there. Given his symptomatic bradycardia and symptoms of tunnel vision related to it, I would hold off on beta-bety therapy at this time. Continue his lisinopril 10 mg p.o. twice daily at this time. We will hold the patient until this afternoon to ensure that his blood pressure has come down and that he is ambulated well in his groin is intact. The patient has no further symptoms we will then discharge him home. It appears he has symptomatic bradycardia possibly a vagal response to severe hypertension. 2. Hyperlipidemia: Continue statin based therapy. Repeat lipid profile after cardiac rehab. LDL is 53 and his HDL is 40. 3. Patient may be discharged home this afternoon if blood pressure, right groin are stable and he has no further symptoms. He will follow-up with Dr. Caldwell going forward. Code Visit Inpatient E&M: 96945 Subs Hosp L2
--- NOTE | 2017-08-03 10:08 | PN.CARD_ITS ---
Subjectve: Patient did well overnight, but did have an episode of severe hypertension this morning followed by bradycardia and tunnel vision. Right groin is clean/dry/ intact without evidence of thrills, bruits or hematoma. Patient was started on low-dose Nitropaste last evening for hypertension and did well. The symptoms are similar to what he had at home prior to angioplasty. He is not on a beta- bety due to his bradycardia. CKs are negative. Hemoglobin and creatinine within nominal limits. Objective: Vital Signs Temp Pulse Resp BP Pulse Ox 97.9 F 65 16 153/97 H 96 08/03/17 04:00 08/03/17 07:00 08/03/17 06:50 08/03/17 06:00 08/03/17 06:50 Oxygen Delivery Method Room Air Weight: 191 lb 5.78 oz Body Mass Index (BMI) 26.6 Intake and Output for Last 24 Hours 08/01/17 08/02/17 08/03/17 23:59 23:59 23:59 Intake Total 2119 / 2119 1362 / 1362 Output Total 1000 / 1000 2100 / 2100 Balance 1119 / 1119 -738 / -738 General: Awake, Alert, Oriented x 3 HEENT: PERRL, EOMI, Sclera Non Icteric Neck: Supple, Good ROM, No Lymph Node Enlargement Lungs: Clear to auscultation Cardiovascular: Regular Rhythm, Normal S1, Normal S2, No Murmurs, No Rubs, No Gallops Vascular: No Carotid Bruits, Normal Femoral Pulses, Normal Radial Pulses, Normal Dorsalis Pedal Pulse, Normal Posterior Tibial Pulses Abdomen: Bowel Sounds Present, Soft, Non Tender, No HSM, No Organomegaly Extremities: No Cyanosis, No Clubbing, No edema Neurological: No Focal Motor or Sensory Deficit 08/02/17 10:26: WBC 6.4, RBC 4.74, Hgb 14.6, Hct 43.2, MCV 91.1, MCH 30.8, MCHC 33.8, RDW 12.8, RDW Differential 42.4, Plt Count 192, MPV 10.2 08/02/17 16:30: WBC 5.5, RBC 4.57 L, Hgb 14.0, Hct 41.8, MCV 91.5, MCH 30.6, MCHC 33.5, RDW 13.1, RDW Differential 43.3, Plt Count 174, MPV 9.8 08/02/17 21:15: WBC 6.1, RBC 4.36 L, Hgb 13.4, Hct 40.0, MCV 91.7, MCH 30.7, MCHC 33.5, RDW 12.8, RDW Differential 42.1, Plt Count 171, MPV 9.8 08/03/17 04:15: Sodium 142, Potassium 4.2, Chloride 108 H, Carbon Dioxide 27.0, Anion Gap 7, BUN 15, Creatinine 0.69 L, Est GFR (MDRD) Af Amer 143, Est GFR ( MDRD) Non-Af 119, BUN/Creatinine Ratio 21.8 H, Glucose 133 H, Calcium 7.9 L, Triglycerides 112, Cholesterol 115, LDL Cholesterol 53, VLDL Cholesterol 22, HDL Cholesterol 40 08/03/17 04:15: WBC 7.1, RBC 4.40 L, Hgb 13.2, Hct 40.5, MCV 92.0, MCH 30.0, MCHC 32.6, RDW 13.0, RDW Differential 43.5, Plt Count 160, MPV 10.4 Rhythm: EKG: Normal sinus rhythm/sinus bradycardia, no acute changes. ECHO: Stress Test: Cardiac Cath: PCI: CT Surgery: Holter monitor: EPS: PPM: CXR: Chest CT Scan: Assessment/Plan 1. Coronary artery disease: The patient is status post angioplasty and drug- eluting stent to the mid LAD followed by stenting of the mid diagonal as well. Distal LAD/diagonal disease with left for medical management due to the complex nature of the bifurcating lesion. Patient had minimal disease of his left circumflex and mid RCA. This point the patient will continue baby aspirin and Plavix going forward, and we will initiate Imdur were 30 mg p.o. daily and titrate up from there. Given his symptomatic bradycardia and symptoms of tunnel vision related to it, I would hold off on beta-bety therapy at this time. Continue his lisinopril 10 mg p.o. twice daily at this time. We will hold the patient until this afternoon to ensure that his blood pressure has come down and that he is ambulated well in his groin is intact. The patient has no further symptoms we will then discharge him home. It appears he has symptomatic bradycardia possibly a vagal response to severe hypertension. 2. Hyperlipidemia: Continue statin based therapy. Repeat lipid profile after cardiac rehab. LDL is 53 and his HDL is 40. 3. Patient may be discharged home this afternoon if blood pressure, right groin are stable and he has no further symptoms. He will follow-up with Dr. Caldwell going forward. Code Visit Inpatient E&M: 19027 Subs Hosp L2
[2017-08-03] MEDS: Isosorbide Mononitrate 30 MG Tablet PO (10:28)
--- NOTE | 2017-08-03 11:42 | PCM.DC.CCA ---
Discharge Diet: Low fat/ Low Cholesterol Discharge Activity: Return to Normal Activity May shower in (days): 1 May resume sexual activity in: 1-2 weeks Lifting Restrictions: Do not lift anything greater than 10 pounds for three days Call your doctor if your incision/area has: Continuous Slow Oozing, Sudden Increased Bleeding, Increased Pain/ Swelling, Increased Redness, Foul Smelling Discharge, Swelling at the incision site Call your doctor if you observe: Fever of 101 or Higher, Shortness of breath, Chest pain Remove Dressing in (days):: 1 Cleanse incision/area with: Soap & Water Additional Instructions: You will be on Plavix for at least one year. If anyone asks you to stop it, please call the [facility] first. If you run low on pills or need a new prescription please call our office at [phone]. You will be on aspirin for life. You are schedule for an office visit follow-up appointment with Dwaine Savage Nurse Practitioner, on September 13 at 10:30 AM in the office. Allergies/Adverse Reactions: Allergies No Known Allergies Allergy (Verified 07/26/17 08:12) Medications to take at Discharge albuterol sulfate 2.5 mg/3 mL (0.083 %) solution for nebulization 2.5 mg INHALATION BID ml 06/24/17 aspirin 81 mg tablet,delayed release 81 mg PO QDAY 06/24/17 budesonide-formoterol HFA 160 mcg-4.5 mcg/actuation aerosol inhaler 2 puff INHALATION Q12H 06/24/17 cyanocobalamin (vit B-12) 1,000 mcg tablet 1,000 mcg PO QDAY 06/24/17 levothyroxine 150 mcg capsule 150 mcg PO QDAY cap 06/24/17 lorazepam 0.5 mg tablet 0.5 mg PO QDAY PRN tab 06/24/17 omeprazole 20 mg capsule,delayed release 20 mg PO QDAY 06/24/17 paroxetine 20 mg tablet 20 mg PO QDAY 06/24/17 thiamine HCl (vitamin B1) 100 mg tablet 50 mg PO QDAY tab 06/24/17 atorvastatin 80 mg tablet 80 mg PO QDAY 06/28/17 lisinopril 10 mg tablet 10 mg PO BID tab 06/28/17 metformin 500 mg tablet 500 mg PO DAILY tab 07/26/17 Clopidogrel Bisulfate [Clopidogrel] 75 mg PO DAILY 08/01/17 Isosorbide Mononitrate [Imdur] 30 mg PO DAILY tablet 08/03/17 Primary Care Physician: Xander Piedra III, MD [Primary Care Provider] - Please Follow Up With: Dwaine Huerta - [facility] Nurse Practitioner When: September 13, 2017 at 10:30 AM Please Follow Up With: [facility] RN/MA - blood pressure check When: August 19, 2017 at 10:00 AM Cardiac Rehabilitation Info Cardiac Rehabilitation Program Information: Cardiac Rehabilitation is important for patients like you who are recovering from a heart problem. Cardiac rehabilitation programs are recognized as integral to the continued care of the patient with coronary heart disease. The cardiac rehabilitation program is designed to optimize a patient's physical, psychological, and social functioning. Health vp care management work in cardiac rehabilitation programs and assist you with getting the treatments you need to get stronger and healthier - like exercise, healthy eating habits, and medications. Cardiac rehabilitation has been show to help people with heart problems live longer and have better life enjoyment than people who do not go to cardiac rehabilitation. Please contact the Cardiac Rehabilitation Program at [facility] at in two weeks if you have not heard from them.
--- NOTE | 2017-08-03 11:43 | PCM.PN.BLA ---
Progress Note Pt.'s blood pressure since starting Imdur is satisfactory with systolic blood pressure below 150. He will be seen in the [facility] office on August 19 at 10:00 for a blood pressure check. His medications will be titrated accordingly. A new prescription was written and given to patient to obtain upon discharge.
[2017-08-03 12:01] LABS: Bedside Glucose 282 mg/dL (70-110)
== END 2017-08-03 12:40 | disposition home or self-care (01) ==
LOC: CLSP 06:51 → ICU 09:14
PROVIDERS: Family Provider Family Medicine; PCP Family Medicine; Visit Provider Internal Medicine Cardiovascular Disease
DX: I25.10 Atherosclerotic heart disease of native coronary artery without angina pectoris (principal); E78.5 Hyperlipidemia, unspecified; I10 Essential (primary) hypertension; J44.9 Chronic obstructive pulmonary disease, unspecified; E03.9 Hypothyroidism, unspecified; E11.9 Type 2 diabetes mellitus without complications; I87.2 Venous insufficiency (chronic) (peripheral); F17.210 Nicotine dependence, cigarettes, uncomplicated
CPT/HCPCS: 80048; 80061; 82550; 82962; 85027; 85347; 87641; 92928; 92929; 93005; 93458; 94640; J7040; Q9967; A4216; C1725; C1769; C1874; C1887; C1894; C9600; C9601

== ENCOUNTER → 2017-08-05 09:41 | Outpatient (CLI) | payer MEDICARE, SELFPAY ==
[2017-08-02 11:16] VITALS: BMI 26.0
--- NOTE | 2017-08-05 09:43 | NM_ITS ---
CLINICAL: 77-year-old male with reported history of epigastric pain and nausea. SEMI-SOLID PHASE 99m Tc SULFUR COLLOID GASTRIC EMPTYING STUDY COMPARISON: Upper gastrointestinal series report 08/01/2017 FINDINGS: The patient was administered 1.1 mCi of 99m Tc sulfur colloid mixed with oatmeal and consumed per os. Image acquisitions in the anterior-posterior projections were obtained for 60 minutes. There is prompt visualization of the stomach. There is no gastroesophageal reflux identified. First order kinetics are maintained throughout the duration of the acquisitions. The T1/2 linear fit was calculated to be 64.44 minutes, (Normal: 12-56 minutes). NM/Gastric Emptying Study IMPRESSION: 1. ABNORMAL 99m Tc sulfur colloid semi-solid phase (oatmeal) gastric emptying imaging examination. A. There is mild delayed semi-solid phase gastric emptying compared to normal controls with maintained first order kinetics throughout all components of the examination. (Servando et al, J Nucl Med Tech 38: 186, 2010). Electronically Signed: Freeman Justice DO at 8:00 EST Tel , Service support ,
== END ==
PROVIDERS: Family Provider Family Medicine; PCP Family Medicine; Visit Provider Surgery
DX: R10.13 Epigastric pain (principal); R11.0 Nausea
CPT/HCPCS: 78264; A9541

== ENCOUNTER 2017-08-24 09:23 | Day surgery (SDC) | payer MEDICARE, SELFPAY ==
[2017-08-02 11:16] VITALS: BMI 26.0
[2017-08-24 09:34] VITALS: BP 156/87; PULSE 70; RESP 16; O2SAT 96
== END 2017-09-22 10:30 ==
LOC: EN 09:24 → ACINP 09:26
PROVIDERS: Family Provider Family Medicine; PCP Family Medicine; Visit Provider Surgery
PROC: F00ZJWZ Instrumental Swallowing and Oral Function Assessment using Swallowing Equipment (ICD-10-PCS; CPT 43235; principal; 2017-08-24 09:25)
DX: Z01.812 Encounter for preprocedural laboratory examination (principal)
CPT/HCPCS: J7120

== ENCOUNTER 2017-08-30 08:14 | Day surgery (SDC) | payer MEDICARE, SELFPAY ==
[2017-08-02 11:16] VITALS: BMI 26.0
[2017-08-30] VITALS (7 sets, daily range): BP systolic 101–129; BP diastolic 49–77; PULSE 56–74; RESP 16–20; TEMP 35.8–36.9; O2SAT 96–99; BMI 25.7
--- NOTE | 2017-08-30 | IMM_PTH ---
PATIENT: JOSE ARMANDO ARNETT LOC: EN U#:[id number] AGE/SX: 77/M ROOM: RE08/30/[address]: Dr. Charles Piedra MD : 1940 BED: DIS: 08/30/2017 SPEC #: [id number] RECD: 08/31/17 10:01 STATUS: ANTONETTE KANE #: [id number] REBECCA: 08/30/17 00:[address]: Charles Piedra DEPT: IMMUNOHISTOCHEMISTRY RECD BY: Lashawn Edwards ENTERED: 08/31/17 10:03 SP TYPE: IMMUNO OTHR DR: Dr. Xander Piedra III, MD Tissues: A - Stomach, NOS B - Cardioesophageal junction Procedures: H Pylori (initial) PHYSICIAN & INSTITUTION [place] [id number] SPECIMEN INFORMATION: Tissue Source: A ? Antrum biopsy, B ? Cardia biopsy Clinical Info: Esophageal dysphagia Specimen Number: [id number] A & B CPT code: 05861 x2 METHODOLOGY: Deparaffinized sections of prefer/formalin-fixed tissue or PAP/DQ stained slides are incubated with monoclonal/polyclonal antibodies/oligonucleotide probes. Localization is made via biotin free immunoperoxidase method. Appropriate controls are performed and reacted as expected. Results on target cell population are indicated in the following table: RESULTS: ANTIBODY / CLONE RESULT Block A H Pylori (polyclonal) negative Block B H Pylori (polyclonal) negative These tests were developed and their performance characteristics determined by [facility]. They may not have been cleared or approved by the U.S. Food and Drug Administration. The FDA has determined that such clearance or approval is not necessary. INTERPRETATION: A. Antrum, biopsy: Negative for Helicobacter pylori organisms. B. Cardia, biopsy: Negative for Helicobacter pylori organisms. AM:shauna 08/31/17
[2017-08-30 09:20] LABS: Bedside Glucose 126 mg/dL (70-110)
--- NOTE | 2017-08-30 10:22 | PCM.HP.STD ---
Problem List (1) Esophageal dysphagia Status: Acute History of Present Illness Date of Admission: 08/30/17 The patient is a 77 year old M who initially presented to me July 26. At that point he was complaining of upper abdominal pain bloating. Fluid reflux. Apparently he gurgles at night. Is a long-term heavy cigarette smoker and he continues to smoke. There is been no previous imaging evidence of hiatal hernia. November 28, 2015 and upper endoscopy done by Dr. Bynum suggested all findings normal. There was some mild chronic inactive gastritis. To help evaluate his situation get a barium swallow which suggested esophageal ulcers. The patient also had an attempted esophageal manometry but it has now become evident that the tip of the probe was turned back on itself. I believe clearly that the patient needs to have the esophagus and stomach further evaluated and he presents now for an upper endoscopy. Past Medical History Past Medical History (Chronic Problems): Chronic Problems (Last Reviewed 07/26/17 @ 08:11 by Teri Fragoso) Hypothyroidism (Chronic) Snoring (Chronic) Diabetes mellitus, type II (Chronic) Venous insufficiency (chronic) (peripheral) (Chronic) Hyperlipidemia (Chronic) COPD (chronic obstructive pulmonary disease) (Chronic) Pulmonary nodules (Chronic) per chest CT 06/25/2016 Tobacco use disorder (Chronic) Sinus bradycardia (Chronic) Atherosclerotic heart disease of [place] coronary artery with other forms of angina pectoris (Chronic) 06/29/[address] [facility] [address] Rico Bach: 60% stenosis LAD, no obstructive CAD History of left heart catheterization (Chronic) 06/29/[address] [facility] [address] Rico Bach: 60% stenosis LAD, no obstructive CAD Allergies No Known Allergies Allergy (Verified 07/26/17 08:12) Home Medications: Ambulatory Orders Medication Instructions Recorded albuterol sulfate 2.5 mg/3 mL 2.5 mg INHALATION BID ml 06/24/17 (0.083 %) solution for nebulization aspirin 81 mg tablet,delayed 81 mg PO QDAY 06/24/17 release budesonide-formoterol HFA 160 2 puff INHALATION Q12H 06/24/17 mcg-4.5 mcg/actuation aerosol inhaler cyanocobalamin (vit B-12) 1,000 1,000 mcg PO QDAY 06/24/17 mcg tablet levothyroxine 150 mcg capsule 150 mcg PO QDAY cap 06/24/17 lorazepam 0.5 mg tablet 0.5 mg PO QDAY PRN tab 06/24/17 paroxetine 20 mg tablet 20 mg PO QDAY 06/24/17 thiamine HCl (vitamin B1) 100 mg 50 mg PO QDAY tab 06/24/17 tablet atorvastatin 80 mg tablet 80 mg PO QDAY 06/28/17 lisinopril 10 mg tablet 10 mg PO BID tab 06/28/17 metformin 500 mg tablet 500 mg PO DAILY tab 07/26/17 Clopidogrel Bisulfate [Clopidogrel] 75 mg PO DAILY 08/01/17 glimepiride 1 mg tablet 1 mg PO QAM 08/04/17 isosorbide mononitrate ER 60 mg 60 mg PO QAM #30 tab 08/10/17 tablet,extended release 24 hr Surgical History: - - Previous heart catheterization Previous upper and lower endoscopy Smoking Status: Current every day smoker Review of Systems Constitutional: Denies: Anorexia Eyes: Denies: Blurred vision HEENT: Denies: Difficulty Hearing Cardiovascular: Denies: Chest Pain Respiratory: Reports: Cough Gastrointestinal: Reports: Abdominal Pain Genitourinary: Denies: Dysuria Musculoskeletal: Denies: Arm Pain Skin: Denies: Dryness Neurological: Denies: Balance problems Psychiatric: Denies: Anxiety Endocrine: Denies: Change in Body Habitus Hematologic/ Lymphatic: Denies: Adenopathy VTE Information - Inpt Only VTE Present on Admission: No Patient Problems: Active and Suspected Problems (Last Reviewed 07/26/17 @ 08:11 by Teri Fragoso) Esophageal dysphagia (Acute) - Physical Exam General: Alert, Oriented x3, Cooperative, No apparent distress HEENT: Atraumatic Oral: Moist Mucosa Neck: Supple Lungs: Clear to auscultation Cardiovascular: Regular rate Abdomen: Bowel Sounds Present, Soft, Non Tender Extremities: Clubbing Neurological: Cranial nerves II-XII grossly intact Psych/Mental Status: Normal Affect Vital Signs Temp Pulse Resp BP Pulse Ox 96.4 F L 74 16 129/77 H 99 08/30/17 08:59 08/30/17 08:59 08/30/17 08:59 08/30/17 08:59 08/30/17 08:59 Oxygen Delivery Method Room Air Weight: 190 lb Body Mass Index (BMI) 25.7 POC Glucose 08/30/17 09:14 POC Glucose 126 H Assessment/Plan Active and Suspected Problems (Last Reviewed 07/26/17 @ 08:11 by Teri Fragoso) Esophageal dysphagia (Acute) Abnormal barium swallow questioning esophageal ulceration. Abnormal esophageal manometry with tip of the probe deflected backwards on itself. High suspicion for distal esophageal disease. I am recommending a esophagogastroduodenoscopy with possible biopsy. The patient is aware of the technique, benefits, risks, alternatives. We will proceed as indicated. Charles Piedra M.D., F.A.C.S.
--- NOTE | 2017-08-30 10:46 | PCM.OPRPT ---
Problem List (1) Esophageal dysphagia Status: Acute Report of Operation Date of Procedure: 08/30/17 Pre-Operative Diagnosis: Possible esophagitis Post-Operative Diagnosis: Hiatal hernia. Suspected mid and distal esophagitis. Diffuse gastritis Surgery/Procedure Performed:: Esophagogastroduodenoscopy with multiple biopsies Description of Surgical Findings:: Timeout and informed consent was obtained. 77-year-old gentleman was taken to the endoscopy suite. His oropharynx anesthetized with Topex. He was placed in left lateral decubitus position. Throughout the procedure he received total 100 mg Demerol 3.5 mg of Versed is intravenous sedation. Under direct physician videogastroscope was inserted into the esophageal inlet. Immediately there was a little punctate lobular pattern to the esophagus. This appear to be consistent throughout. The EG junction was at 44 cm. A small hiatal hernia noted however there was suggestion of free reflux of gastric contents upon the distal esophagus. This was visualized. Appeared to be mild irritation of the distal esophagus. The scope was advanced into the stomach and immediately a diffuse erythema the stomach was noted especially in the antrum but throughout the stomach. The scope was advanced through the pylorus. The first and second portion the duodenum were inspected this was not remarkable. The scope was withdrawn back into the stomach and antral biopsy was obtained. Greater and lesser curvatures were inspected. The scope was retroflexed. The hiatal hernia noted. The cardia almost appeared to possibly have a second hiatal hernia but upon further inspection was simply thickened rugae. Biopsy was obtained of the cardia. Excess fluid and air was aspirated free. Scope was withdrawn in the distal esophagus were distal esophageal biopsies mid esophageal biopsies and proximal esophageal biopsies were obtained. He tolerated all of that well. The procedure was completed. Impression Hiatal hernia with free reflux upon the esophagus. Diffuse aviles gastritis concentrated in the antrum We will await pathology results. I will continue to impress upon the patient the importance of ceasing his tobacco use. Will offer the recommendation of using omeprazole 40 mg daily while awaiting results. The patient might consider future treatment of this hiatal hernia with a laparoscopic reflux procedure. That will be pending his symptomatic progress. Cc: Dr. Xander Piedra, III Medications were given at 1031. The scope was inserted at 1033. Procedure was completed at 1040. Charles Piedra M.D., F.A.C.S.
--- NOTE | 2017-08-30 11:05 | EGD_PTH ---
PATIENT: JOSE ARMANDO ARNETT LOC: EN U#:[id number] AGE/SX: 77/M ROOM: RE08/30/[address]: Dr. Charles Piedra MD : 1940 BED: DIS: 08/30/2017 SPEC #: [id number] RECD: 08/30/17 11:05 STATUS: ANTONETTE KANE #: [id number] REBECCA: 08/30/17 11:[address]: Charles Piedra DEPT: SURGICAL PATHOLOGY RECD BY: Simba Bright ENTERED: 08/30/17 12:44 SP TYPE: EGD BIOPSY OT DR: Dr. Xander Piedra III, MD Tissues: A - Gastric mucous membrane B - Cardioesophageal junction C - Esophageal mucous membrane D - Esophageal mucous membrane Procedures: Special Stain Group II Special Stain Group I Surgery Specimen Level IV AFB Stain (control) GMS Stain (control) Alcian Blue/PAS (control) HEADER OPERATION: EGD PRE-OP DIAGNOSIS: Esophageal dysphagia TISSUE SUBMITTED: A. Antrum biopsy for H. Pylori and path, B. Cardia biopsy, C. Distal esophagus, D. Mid esophagus biopsy MICROSCOPIC DIAGNOSIS A. Gastric antrum, biopsy: Mild chronic gastritis. B. Gastric cardia, biopsy: Moderate chronic gastritis. Focal intestinal metaplasia. C. Distal esophagus, biopsy: Strips of benign squamous epithelium with no pathologic change. Gastroesophageal jjunctional mucosa with mild chronic inflammation. D. Mid esophagus, biopsy: Mild acute inflammation. Negative for acid-fast bacilli and fungal organisms. AM:shauna 08/31/17 COMMENT A & B. The results of immunohistochemistry for Helicobacter pylori will be reported separately ([id number]). B. Alcian blue/PAS stain with matched control supports the above diagnosis. D. AFB and GMS stains with matched controls were used in the evaluation of this case. MICROSCOPIC DESCRIPTION Slides are reviewed. GROSS DESCRIPTION A - Received in fixative is one container labeled with the patient's name and designated antrum biopsy for H. pylori and path. The specimen consists of one irregular fragment of light bolton soft tissue that measures 0.5 x 0.2 x 0.1 cm. The specimen is totally submitted in one cassette. B - Received in fixative is one container labeled with the patient's name and designated cardia biopsy. The specimen consists of one irregular fragment of light bolton soft tissue that measures 0.3 x 0.3 x 0.1 cm. The specimen is totally submitted in one cassette. C - Received in fixative is one container labeled with the patient's name and designated distal esophagus biopsy. The specimen consists of two irregular fragments of light bolton soft tissue that in aggregate measure 1 x 0.2 x 0.1 cm. The specimen is totally submitted in one cassette. D - Received in fixative is one container labeled with the patient's name and designated mid esophagus biopsy. The specimen consists of multiple irregular fragments of light bolton soft tissue that in aggregate measure 1 x 0.5 x 0.1 cm. The specimen is totally submitted in one cassette. / SJ:rg 08/30/17 TC:3 CPT: 72932 x4, 38586 x2, 26750
== END 2017-08-30 11:34 | disposition home or self-care (01) ==
LOC: EN 08:15 → AC 08:16
PROVIDERS: Family Provider Family Medicine; PCP Family Medicine; Visit Provider Surgery
PROC: (CPT 43239; principal; 2017-08-30 09:10)
DX: K29.50 Unspecified chronic gastritis without bleeding (principal); K44.9 Diaphragmatic hernia without obstruction or gangrene; E03.9 Hypothyroidism, unspecified; J44.9 Chronic obstructive pulmonary disease, unspecified; E78.5 Hyperlipidemia, unspecified; F17.200 Nicotine dependence, unspecified, uncomplicated; E11.9 Type 2 diabetes mellitus without complications
CPT/HCPCS: 43239; 82962; 88305; 88312; 88313; 88342; 99152; 99153; J7120

== ENCOUNTER → 2017-09-15 09:03 | Outpatient (CLI) | payer MEDICARE, SELFPAY ==
[2017-08-02 11:16] VITALS: BMI 26.0
--- NOTE | 2017-09-15 09:04 | CDU_ITS ---
Reason For Study: DIZZINESS Rt. Velocities/BP Lt. Velocities/BP Prox CCA 108.0/15.2 cm/sec. Prox CCA 95.0/15.8 cm/sec. Mid CCA 156.0/20.4 cm/sec. Mid CCA 143.0/24.6 cm/sec. Dist CCA 119.0/16.5 cm/sec. Dist CCA 169.0/35.4 cm/sec. Prox ICA 156.0/58.1 cm/sec. Prox ICA 70.4/23.5 cm/sec. Mid ICA 348.0/125.0 cm/sec. Mid ICA 62.1/23.5 cm/sec. Dist ICA 60.1/22.0 cm/sec. Dist ICA 50.4/17.6 cm/sec. Rt. ICA/CCA = 2.2. Lt. ICA/CCA = .49. Prox ECA 117.0/14.1 cm/sec. Prox ECA 110.0/15.2 cm/sec. Lt. Vert. 50.4/18.8 cm/sec. Right Extracranial There is homogeneous, smooth atherosclerotic plaque noted in the right common carotid artery. There is heterogeneous, irregular atherosclerotic plaque noted in the right internal carotid artery. There is intimal thickening but no significant atherosclerotic plaque noted in the right external carotid artery. Rt Vertebral flow is RETROGRADE. Left Extracranial There is heterogeneous, irregular atherosclerotic plaque noted in the left common carotid artery. There is heterogeneous, smooth atherosclerotic plaque noted in the left internal carotid artery. There is heterogeneous, smooth atherosclerotic plaque noted in the left external carotid artery. Antegrade flow is noted in the left vertebral artery. Procedure Carotid Duplex 72500. Exam performed in department. Interpretation Summary Irregular calcific plague at the proximal right internal carotid with >70% stenosis and likely >80% stenosis. Irregular calcific plague at the proximal left internal carotid with <50% stenosis. Mild plague bilateral common carotid arteries. Mild disease bilateral external carotid arteries. Right vertebral flow is retrograde concerning for right subclavian stenosis. Patent and antegrade left vertebral. Ordering Physician: Hoa Olivarez Referring Physician: YAIR Piedra M.D. Performed By: Deborah Fu RVT
--- NOTE | 2017-09-15 09:04 | RDU_ITS ---
Reason For Study: HYPERTENSION Right Renal Artery Left Renal Artery Right renal artery ostium Left renal artery ostium 226.0/46.9 334.0/69.0 RSV/EDV. PSV/EDV. Right renal artery proximal Left renal artery proximal PSV/EDV 149.0/35.7 PSV/EDV. 255.0/52.0 . Right renal artery mid 64.8/17.4 Left renal artery mid 198.0/48.9 PSV/EDV. PSV/EDV . Right renal artery distal 70.0/17.9 Left renal artery distal 147.0/34.3 PSV/EDV. PSV/EDV. Right RAR 3.5. Left RAR 2.7. Right Renal Parenchyma Left Renal Parenchyma Upper Pole Medula 19.8/6.7 PSV/EDV. Left upper pole medulla 20.7/5.4 Right upper pole medulla EDR .34 . PSV/EDV . Right upper pole medulla R.I. .66 . Left upper pole medulla EDR .26 . Upper Lester Cortx 26.1/8.2 PSV/EDV. Left upper pole medulla R.I. .74 . Right upper pole cortex EDR .31 . UP Cortex 19.1/3.9 PSV/EDV. Right upper pole cortex R.I. .69 . Left upper pole cortex EDR .20 . Right lower Pole medulla 19.6/7.0 Left upper pole cortex R.I. .80 . PSV/EDV . Left lower Pole medulla 27.8/5.7 Right lower pole medulla EDR .36 . PSV/EDV . Right lower pole medulla R.I. .64 . Left lower pole medulla EDR .21 . Lower Pole Cortex 19.6/5.0 PSV/EDV. Left lower pole medulla R.I. .79 . Right lower pole cortex EDR .26 . Lower Pole Cortx 20.2/5.0 PSV/EDV. Right Renal Hilar Left lower pole cortex EDR .25 . Right Hilar avg 41.6/12.5 PSV/EDV. Left lower pole cortex R.I. .75 . Right hilar acceleration time 37 Left Renal Hilar m/sec. LT Hilar avg 47.9/11.4 PSV/EDV . Right Renal Dimensions Left hilar acceleration time 59 Right kidney size 12.1 cm . m/sec. Right cortical dimension 1.5 cm . Left Renal Dimensions Left kidney size 12.0 cm . Left cortical dimension 1.6 cm . Aorta Proximal abdominal aorta 2.0 x 2.1 cm . Distal abdominal aorta 2.2 x 2.2 cm . Proximal abdominal aorta peak systolic velocity is 95.8 cm/sec . Distal abdominal aorta peak systolic velocity is 84.8 cm/sec . Interpretation Summary Greater than 60% stenosis right renal artery. Maintained right renal length of 12.1cm Less than 60% stenosis left renal artery but close to this range. Maintained left renal length of 12 cm Normal aortic diameter 2 x 2.1 cm Left renal resistivity indices suggestive of renal parenchymal disease. Ordering Physician: Hoa Olivarez Referring Physician: YAIR Piedra M.D. Performed By: Deborah Fu RVT
== END ==
PROVIDERS: Family Provider Family Medicine; PCP Family Medicine; Visit Provider Physician Assistant Medical
DX: R09.89 Other specified symptoms and signs involving the circulatory and respiratory systems (principal); R42 Dizziness and giddiness
CPT/HCPCS: 93880; 93975

== ENCOUNTER → 2017-09-19 20:00 | Outpatient (CLI) | payer MEDICARE, SELFPAY ==
[2017-08-02 11:16] VITALS: BMI 26.0
== END ==
PROVIDERS: Family Provider Family Medicine; PCP Family Medicine; Visit Provider Physician Assistant Medical
DX: G47.33 Obstructive sleep apnea (adult) (pediatric) (principal)
CPT/HCPCS: 95810

== ENCOUNTER 2017-09-22 09:32 | Day surgery (SDC) | payer MEDICARE, SELFPAY ==
[2017-08-02 11:16] VITALS: BMI 26.0
[2017-09-22 09:50] VITALS: BP 137/83; PULSE 65; RESP 18; TEMP 36.1; O2SAT 97
== END 2017-09-22 11:00 | disposition home or self-care (01) ==
LOC: EN 09:33 → AC 09:37
PROVIDERS: Family Provider Family Medicine; PCP Family Medicine; Visit Provider Surgery
PROC: F00ZJWZ Instrumental Swallowing and Oral Function Assessment using Swallowing Equipment (ICD-10-PCS; CPT 43235; principal; 2017-09-22 09:25)
DX: R13.10 Dysphagia, unspecified (principal)

== ENCOUNTER → 2017-10-06 16:56 | Outpatient (CLI) | payer MEDICARE, SELFPAY ==
[2017-08-02 11:16] VITALS: BMI 26.0
--- NOTE | 2017-10-06 16:58 | CT_ITS ---
CTA of the neck INDICATION: Carotid stenosis TECHNIQUE: CTA of the neck was performed scanning in a dynamically enhanced fashion in the axial plane from the cervicothoracic junction to the pulmonary apices followed by sagittal and coronal reconstructions. Radiographic technique was optimized to limit patient radiation dose. DLP was 654.94 FINDINGS: There is mild soft plaque noted within the right common carotid and mild soft and calcific plaque in the carotid bulb. The origin of the internal carotid demonstrates mild soft and calcific plaque however just distal to the origin there is extensive plaque in high-grade stenosis approximating greater than 90% narrowing. There is mild soft plaque seen within the left common carotid and mild soft and calcific plaque in the carotid bulb as well as mild soft plaque in the origin of the internal carotid. The left vertebral is dominant. There is occlusion of the proximal right vertebral at the origin and reconstitution of the vessel which is diffusely and severely narrowed throughout its course IMPRESSION Advanced atherosclerotic disease with high-grade stenosis greater than 90% stenosis of the proximal right internal carotid. Occluded proximal right vertebral with reconstitution and severely diffusely narrowed vessel throughout its course Electronically Signed: Nura Miller MD at 22:04 EDT , Service support , CT/CTA Neck W/WO Contrast
[2017-10-06 17:16] LABS: EGFR FINGERSTICK > 60.0000 mL/min (>60)
== END ==
PROVIDERS: Family Provider Family Medicine; PCP Family Medicine; Visit Provider Surgery
DX: Z01.812 Encounter for preprocedural laboratory examination (principal); I65.29 Occlusion and stenosis of unspecified carotid artery
CPT/HCPCS: 70498; Q9967

== ENCOUNTER → 2017-10-14 20:14 | Outpatient (CLI) | payer MEDICARE, SELFPAY ==
[2017-08-02 11:16] VITALS: BMI 26.0
== END ==
PROVIDERS: Family Provider Family Medicine; PCP Family Medicine; Visit Provider Nurse Practitioner Acute Care
DX: G47.33 Obstructive sleep apnea (adult) (pediatric) (principal)
CPT/HCPCS: 95811

== ENCOUNTER 2017-11-02 05:31 | Inpatient (IN) | payer MEDICARE, SELFPAY ==
[2017-08-02 11:16] VITALS: BMI 26.0
[2017-10-26 11:50] VITALS: BP 118/69; PULSE 64; RESP 18; TEMP 36.8; O2SAT 97; BMI 25.9
--- NOTE | 2017-10-26 11:57 | EKG12_ITS ---
Test Reason : Blood Pressure : / mmHG Vent. Rate : 050 BPM Atrial Rate : 050 BPM P-R Int : 150 ms QRS Dur : 072 ms QT Int : 442 ms P-R-T Axes : 058 055 024 degrees QTc Int : 402 ms Poor data quality, interpretation may be adversely affected Sinus bradycardia Confirmed by MALIKA MAO, LESLIE ([id number]), assignment desk editor JOANA AARON ([id number]) on 10/28/2017 10:41:01 AM Referred By: Charles Piedra Confirmed By:LESLIE DALY MD
[2017-10-26 12:43] LABS: Absolute Neutrophil Count 4.2 X10^3/uL (2.0-7.7); Basophil# 0.03 X10^3/uL; Basophil% 0.5 % (0-1); Eosinophil# 0.18 X10^3/uL; Eosinophils% 2.9 % (0-5); Hematocrit 43.4 % (40-54); Hemoglobin 14.3 g/dl (13.0-16.5); Lymphocyte % 19.4 % (19-41); Mean Corp Hgb Conc 32.9 g/gl (32-36); Mean Corpuscular Hgb 29.9 pg (27.0-32.0); Mean Corpuscular Volume 90.6 fL (80-94); Mean Platelet Vol. 9.8 fl (6.2-12.0); Monocyte# 0.55 X10^3/uL; Monocyte% 8.9 % (0-10); Neutrophil # 4.23 X10^3/uL (2.7-7.7); Neutrophil % 68.1 % (47-70); Platelet Count 217 K/mm3 (150-450); RBC Distribution Width CV 13.5 % (11.6-14.6); RBC Distribution Width SD 43.9 fl (35.1-43.9); Red Blood Count 4.79 M/mm3 (4.6-6.2); White Blood Count 6.2 K/mm3 (4.4-11.0)
[2017-10-26 12:48] LABS: POSITIVE COUNT NO; POSITIVE DIFFERENTIAL NO; POSITIVE MORPHOLOGY NO
--- NOTE | 2017-10-26 12:52 | RAD_ITS ---
STUDY: X-RAY CHEST REASON FOR EXAM: Male, 77 years old. Preoperative evaluation. History of bladder cancer and throat cancer. TECHNIQUE: PA and lateral views of the chest. COMPARISON: Comparison is made with prior study dated July 29, 2017. FINDINGS: Hyperinflation. Stable increased linear markings in the lingular segment of the left upper lobe suggestive of scarring. Stable blunting of both costophrenic angles posteriorly. Normal size heart. Normal mediastinum and zuhair. Normal visualized pulmonary arteries. Normal visualized aortic arch and descending thoracic aorta. There are mild degenerative changes of the visualized thoracic spine. Healed right-sided rib fractures. There is no demonstrated abnormality of the visualized soft tissue structures of the upper abdomen. RAD/Chest PA and Lateral IMPRESSION: Hyperinflation. Stable examination. Electronically Signed: Lance Sibley MD at 13:36 EDT Tel [phone], Service support ,
[2017-10-26 13:20] LABS: Hemoglobin A1c 7.1 % (4.2-6.3)
[2017-10-26 13:30] LABS: AST(SGOT) 20 U/L (15-37); Alanine Aminotransfer ALT/SGPT 31 U/L (16-61); Albumin, Serum 3.6 g/dL (3.2-5.0); Alkaline Phosphatase 90 U/L (45-117); Anion Gap 7 (5-15); BUN 23 mg/dL (7-18); Calcium,Total 8.6 mg/dL (8.5-10.1); Chloride 106 mmol/L (98-107); Creatinine, Serum 0.92 mg/dL (0.70-1.30); EST Glomerular Filtration Rate 85 mL/min (>60); Est Glom Filt Rate - Afr Amer 103 mL/min (>60); Globulin 3.6 g/dL (2.2-4.2); Glucose 118 mg/dL (74-106); Potassium 4.2 mmol/L (3.5-5.1); Protein, Total 7.2 g/dL (6.4-8.2); Sodium Level 139 mmol/L (136-145); Thyroid Stim Hormone (TSH) 0.28 uIU/mL (0.358-3.74)
[2017-10-26 13:48] LABS: International Normalized Ratio 0.9; Prothrombin Time (Protime)PT. 12.2 SECONDS (11.7-14.9)
[2017-10-26 13:49] LABS: Partial Thromboplast Time 33.2 Seconds (24.1-36.2)
[2017-11-02] VITALS (21 sets, daily range): BP systolic 106–173; BP diastolic 50–77; PULSE 52–84; RESP 14–20; TEMP 36.5–37.2; O2SAT 93–99; BMI 25.9; BMI 26.6
--- NOTE | 2017-11-02 06:14 | PCM.OPRPT ---
Problem List (1) Carotid stenosis, right Status: Acute Report of Operation Date of Procedure: 11/02/17 Pre-Operative Diagnosis: Critical symptomatic stenosis right extracranial internal carotid Post-Operative Diagnosis: Same Surgery/Procedure Performed:: Right radial arterial line placement. Right carotid endarterectomy with bovine patch angioplasty Description of Surgical Findings:: Amount and informed consent was obtained at the bedside. Corby test performed demonstrating adequate ulnar flow. The right wrist was gently extended prepped with Betadine. 1% lidocaine was used as a local anesthetic. 1 cc was used. A 20-gauge aero Angiocath was used to transfix the artery and then with Seldinger wire technique the catheter was nicely advanced. The catheter secured skin with interrupted 3-0 nylon. OpSite dressing was applied followed by Tamy wrap. Patient tolerated procedure well. Hand was viable. Good waveform was obtained. No apparent complications and minimal blood loss. The patient was subsequently taken to the operating room for planned definitive surgical intervention. The patient was taken to the operating room. He was placed on the table. He underwent general ventricular-based anesthesia. The right neck was sterilely prepped and draped. An oblique incision was made along the anterior border the sternocleidomastoid. Sharp dissection was carried down through the substance tissue. The facial vein was identified secured with 3-0 Vicryl. Hemoclips were used where indicated. The carotid bulb was identified dissection performed proximally distally. A Dacron tape and Gaby tourniquet was placed cephalad. A Dia tie of Dacron tape was placed proximally. Dacron tape around the external carotid was placed. A complete dissection was achieved. The vagus nerve was somewhat anteriorly placed. The hypoglossal nerve was quite in a low-lying position both of these nerves had to be carefully manipulated. There was no nerve injury. The patient received 9000 units of heparin. Later in the case received an additional 500 units. Peripheral forklift vascular clamps are placed on the internal common and external carotid 11 blade was used to make an arteriotomy which was then extended with Dia scissors. A #10 USCI style shunt was placed cephalad and proximally. An endarterectomy was performed of the layer of the external elastic lamina the plaque was sharply transected proximally and then it was carefully followed the internal carotid was nicely feathered. An inversion enterectomy was rotted. Further debris was carefully removed with fine forceps. The vessel was irrigated. A bovine patch Vascu-Guard [id number] and reference number with a PN number of [id number] and [place] [id number] was utilized. It was shaped to form and a patch angioplasty created with a running 6-0 Prolene. Prior to completion the shunt was then remove the patch angioplasty was completed initial flow was instituted from the external carotid common carotid find the internal carotid. A repair suture of 7-0 Prolene was placed to assure hemostasis. The the patient received reversal with a total 30 mg of protamine. Surgicel was used topically that did not completely obtain hemostasis I ended up placing FloSeal. I then approximated the platysma with the running 3-0 Vicryl. The skin edges proximate running septic or 4-0 equal. Steri-Strips applied the jens-incisional areas anesthetized with 10 cc of 0.5% Marcaine. Sponge and instrument and needle counts were reported to the surgeon be correct. Blood loss was 200 cc. He tolerated the procedure well was taken to the recovery in satisfactory condition no apparent complication. Been includes plaque. Drains none. Blood loss 200 cc. Charles Piedra M.D., F.A.C.S.
--- NOTE | 2017-11-02 06:31 | PCM.CONS.B ---
Problem List (1) Stented coronary artery Status: Chronic Comment: 08/02/17: BEATRIZ to mid LAD, mid DX 1, and ostial DX1 per Dr. Caldwell @ [facility] (2) MONI (obstructive sleep apnea) Status: Chronic (3) Emphysema lung Status: Chronic (4) Esophageal dysphagia Status: Acute (5) Carotid stenosis, right Status: Acute (6) History of colonoscopy Status: Acute (7) History of esophagogastroduodenoscopy Status: Acute Comment: 2017 (8) Hypothyroidism Status: Chronic (9) Diabetes mellitus, type II Status: Chronic (10) Venous insufficiency (chronic) (peripheral) Status: Chronic (11) COPD (chronic obstructive pulmonary disease) Status: Chronic (12) Tobacco use disorder Status: Chronic (13) Sinus bradycardia Status: Chronic (14) Atherosclerotic heart disease of [place] coronary artery with other forms of angina pectoris Status: Chronic Comment: 08/02/17: BEATRIZ to mid LAD, mid DX 1, and ostial DX1 per Dr. Caldwell @ [facility]. 06/29/[address] [facility] [address] Rico Bach: 60% stenosis LAD, no obstructive CAD (15) History of left heart catheterization Status: Chronic Comment: 06/29/[address] [facility] [address] Rico Bach: 60% stenosis LAD, no obstructive CAD - Consult Date of Consult: 11/02/17 - Reason for Consult HPI: Patient is a 77 y/o male I am following for right carotid stenosis. Patient denies recent hospitalizations or illnesses since his last office visit. Patient is currently on Plavix and follows with [facility]. Patient also continues to smoke greater than 1 ppd of cigarettes. He has sleep apnea and COPD. He follws with pulmonology. Patient's previous history per Dr. Piedra: JOSE ARMANDO ARNETT, is a 77 M who presents to the office today for surgical follow-up and discussion regarding esophageal disorder. August 01, 2017 had an upper GI contrast study. Esophageal ulcers were suspected. No evidence for obstruction. On August 30, 2017 the patient had a esophagogastroduodenoscopy with multiple biopsies. Had a small hiatal hernia. Mild chronic gastritis identified on biopsy. Distal esophagus had mild chronic inflammation. Midesophagus had mild acute inflammation. H. pylori was negative. The patient that on September 22, 2017 had esophageal manometry. This was a redo exam because the initial one had coiling of the tube. This examination was markedly abnormal. There was absence of muscle tone in the mid and distal esophagus. There was minimal to no LES pressure. 100% of the swallows were failed with retained bolus. Findings were suspicious for scleroderma. Patient was referred to [facility]. During the same time. The patient is being evaluated by cardiology Dr. Caldwell. Hoa Olivarez detected a problem with dizziness. The patient has malignant hypertension. On September 15, 2017 at the [facility] he had carotid duplex imaging. Peak systolic velocity within the right mid internal carotid is 348 cm/s with an end-diastolic flow of 125. This was felt to be consistent with greater than 70% stenosis and likely greater than 80% stenosis. There is felt to be less than 50% stenosis on the left. The right vertebral has retrograde flow. The left vertebral antegrade flow. CTA of the neck demonstrated 90% stenosis of the right carotid artery on 10/06/2017. The patient's is Halina. The patient continues to aggressively smoke cigarettes. The patient's primary concern now is his malignant hypertension. Vital Signs 11/02/17 Weight: 191 lb 12.835 oz 11/02/17 Blood Pressure 154/63 11/02/17 Blood Pressure Location Rt brachial 11/02/17 Blood Pressure Position Supine 11/02/17 Respiratory Rate 14 11/02/17 Pulse Rate 52 Meterman Required: No Is patient in pain?: No Allergies No Known Allergies Allergy (Verified 09/29/17 09:06) Medications albuterol sulfate 2.5 mg/3 mL (0.083 %) solution for nebulization 2.5 mg INHALATION BID ml 06/24/17 [History Confirmed 09/29/17] aspirin 81 mg tablet,delayed release 81 mg PO QDAY 06/24/17 [History Confirmed 09/29/17] budesonide-formoterol HFA 160 mcg-4.5 mcg/actuation aerosol inhaler 2 puff INHALATION Q12H 06/24/17 [History Confirmed 09/29/17] cyanocobalamin (vit B-12) 1,000 mcg tablet 1,000 mcg PO QDAY 06/24/17 [History Confirmed 09/29/17] levothyroxine 150 mcg capsule 150 mcg PO QDAY cap 06/24/17 [History Confirmed 09/29/17] lorazepam 0.5 mg tablet 0.5 mg PO QDAY PRN tab 06/24/17 [History Confirmed 09/29/17] paroxetine 20 mg tablet 20 mg PO QDAY 06/24/17 [History Confirmed 09/29/17] thiamine HCl (vitamin B1) 100 mg tablet 50 mg PO QDAY tab 06/24/17 [History Confirmed 09/29/17] atorvastatin 80 mg tablet 80 mg PO QDAY 06/28/17 [History Confirmed 09/29/17] metformin 500 mg tablet 500 mg PO DAILY tab 07/26/17 [History Confirmed 09/29/17] Clopidogrel Bisulfate [Clopidogrel] 75 mg PO DAILY 08/01/17 [History Confirmed 09/29/17] glimepiride 1 mg tablet 1 mg PO QAM 08/04/17 [History Confirmed 09/29/17] omeprazole 40 mg capsule,delayed release 40 mg PO QDAY #30 cap 08/30/17 [Rx Confirmed 09/29/17] lisinopril 20 mg tablet 20 mg PO QDAY #90 tab 09/05/17 [Rx Confirmed 09/29/17] isosorbide mononitrate ER 60 mg tablet,extended release 24 hr 60 mg PO BID #60 tab 09/14/17 [Rx Confirmed 09/29/17] PFSH Medical History Chest pain (Acute) Hypothyroidism (Chronic) Snoring (Chronic) Diabetes mellitus, type II (Chronic) Venous insufficiency (chronic) (peripheral) (Chronic) Hyperlipidemia (Chronic) COPD (chronic obstructive pulmonary disease) (Chronic) Pulmonary nodules (Chronic) Tobacco use disorder (Chronic) Sinus bradycardia (Chronic) Atherosclerotic heart disease of [place] coronary artery with other forms of angina pectoris (Chronic) Surgical History History of left heart catheterization (Chronic) History of colonoscopy (Acute) History of esophagogastroduodenoscopy (Acute) Family History Father , age 61 Myocardial infarction CAD (coronary artery disease) Sudden cardiac Mother , age 80 Congestive heart failure Sister , cause unknown, suspected CVA No problems noted. Social History Smoking Status: Current every day smoker alcohol intake: never substance use type: does not use caffeine: Yes Type: coffee what type of physical activity do you participate in: none seatbelt use: always do you feel safe at home: Yes ROS General: Yes fatigue; no weight change, appetite, colon cancer, breast cancer or weakness HEENT: Yes difficulty swallowing; no eye injury, eye surgery, swollen glands or hoarseness Endocrine: Yes thyroid disease and thyroid cancer; no diabetes mellitus, Hair loss, heat intolerance or cold intolerance Skin: Yes changing moles; no rash Breast: No left breast lump, right breast lump, nipple discharge, breast pain, abnormal mammogram, abnormal US or breast enlargement Musculoskeletal: Yes back problems; no arthritis, rheumatoid arthritis, gout or joint pain Cardiovascular: No murmur, pacemaker, heart disease, atrial fibrillation, high blood pressure, heart attack, heart stent, palpitations, shortness of breat with exertion or chest pain Psychiatric: Yes depression and anxiety; no hearing voices Respiratory: Yes shortness of breath, Yes cough, Yes COPD, Yes emphysema, No sleep apnea, No asthma, No wheezing Gastrointestinal: Yes abdominal pain, Yes nausea or vomiting, Yes acid reflux, No diarrhea, No constipation, No blood in stool, No hemorrhoids, No ulcers, No gallbladder problem, No black,tarry stools Hematologic: Yes blood thinners, No blood disorders, No bleeding, No anemia, No blood clots Neurologic: No weakness Exam Const General: cooperative, other (Very heavy odor of tobacco) [facility] Head: normal to inspection General: appearance normal, both eyes and all related structures Neck: normal visual inspection Breast Palpation: No nipple discharge Other: Notably increased anterior posterior diameter Resp Effort & Inspection: other (Diminished respiratory excursion) Auscultation: Wheezing right side Cardio Rate: regular rate Rhythm: regular rhythm Heart Sounds: no murmurs GI Inspection: normal to inspection Palpation: soft, no hepatosplenomegaly Musc Cervical Spine: other Skin General: no rashes or lesions noted Neuro Cranial Nerves: CN's II-XI intact bilaterally Extrem Other: Calves are supple, mild digital clubbing Psych Affect: normal affect Assessment & Plan Problems 1. Carotid stenosis, right I65.21 Plan: Dr. Piedra will plan to perform a right carotid endarterectomy. Procedure was previously explained to the patient in detail including the risks and benefits. Patient has had the opportunity to ask and have questions answered. Patient verbally understands and agrees with the plan. Patient's was also present in the room. Patient desires to proceed with the proposed procedure. Code Visit Inpatient E&M: 98010 [facility] L1 - Pre-op visit. No charge
--- NOTE | 2017-11-02 06:42 | CON.PCM_ITS ---
Problem List (1) Stented coronary artery Status: Chronic Comment: 08/02/17: BEATRIZ to mid LAD, mid DX 1, and ostial DX1 per Dr. Caldwell @ [facility] (2) MONI (obstructive sleep apnea) Status: Chronic (3) Emphysema lung Status: Chronic (4) Esophageal dysphagia Status: Acute (5) Carotid stenosis, right Status: Acute (6) History of colonoscopy Status: Acute (7) History of esophagogastroduodenoscopy Status: Acute Comment: 2017 (8) Hypothyroidism Status: Chronic (9) Diabetes mellitus, type II Status: Chronic (10) Venous insufficiency (chronic) (peripheral) Status: Chronic (11) COPD (chronic obstructive pulmonary disease) Status: Chronic (12) Tobacco use disorder Status: Chronic (13) Sinus bradycardia Status: Chronic (14) Atherosclerotic heart disease of [place] coronary artery with other forms of angina pectoris Status: Chronic Comment: 08/02/17: BEATRIZ to mid LAD, mid DX 1, and ostial DX1 per Dr. Caldwell @ [facility]. 06/29/[address] [facility] [address] Rico Bach: 60% stenosis LAD, no obstructive CAD (15) History of left heart catheterization Status: Chronic Comment: 06/29/[address] [facility] [address] Rico Bach: 60% stenosis LAD , no obstructive CAD - Consult Date of Consult: 11/02/17 - Reason for Consult HPI: Patient is a 77 y/o male I am following for right carotid stenosis. Patient denies recent hospitalizations or illnesses since his last office visit. Patient is currently on Plavix and follows with [facility]. Patient also continues to smoke greater than 1 ppd of cigarettes. He has sleep apnea and COPD. He follws with pulmonology. Patient's previous history per Dr. Piedra: JOSE ARMANDO ARNETT, is a 77 M who presents to the office today for surgical follow-up and discussion regarding esophageal disorder. August 01, 2017 had an upper GI contrast study. Esophageal ulcers were suspected. No evidence for obstruction. On August 30, 2017 the patient had a esophagogastroduodenoscopy with multiple biopsies. Had a small hiatal hernia. Mild chronic gastritis identified on biopsy. Distal esophagus had mild chronic inflammation. Midesophagus had mild acute inflammation. H. pylori was negative. The patient that on September 22, 2017 had esophageal manometry. This was a redo exam because the initial one had coiling of the tube. This examination was markedly abnormal. There was absence of muscle tone in the mid and distal esophagus. There was minimal to no LES pressure. 100% of the swallows were failed with retained bolus. Findings were suspicious for scleroderma. Patient was referred to [facility]. During the same time. The patient is being evaluated by cardiology Dr. Caldwell. Hoa Olivarez detected a problem with dizziness. The patient has malignant hypertension. On September 15, 2017 at the [facility] he had carotid duplex imaging. Peak systolic velocity within the right mid internal carotid is 348 cm/s with an end-diastolic flow of 125. This was felt to be consistent with greater than 70% stenosis and likely greater than 80% stenosis. There is felt to be less than 50% stenosis on the left. The right vertebral has retrograde flow. The left vertebral antegrade flow. CTA of the neck demonstrated 90% stenosis of the right carotid artery on 10/06/2017. The patient's is Halina. The patient continues to aggressively smoke cigarettes. The patient's primary concern now is his malignant hypertension. Vital Signs 11/02/17 Weight: 191 lb 12.835 oz 11/02/17 Blood Pressure 154/63 11/02/17 Blood Pressure Location Rt brachial 11/02/17 Blood Pressure Position Supine 11/02/17 Respiratory Rate 14 11/02/17 Pulse Rate 52 Elevator Constructor Supervisor Required: No Is patient in pain?: No Allergies No Known Allergies Allergy (Verified 09/29/17 09:06) Medications albuterol sulfate 2.5 mg/3 mL (0.083 %) solution for nebulization 2.5 mg INHALATION BID ml 06/24/17 [History Confirmed 09/29/17] aspirin 81 mg tablet,delayed release 81 mg PO QDAY 06/24/17 [History Confirmed 09/29/17] budesonide-formoterol HFA 160 mcg-4.5 mcg/actuation aerosol inhaler 2 puff INHALATION Q12H 06/24/17 [History Confirmed 09/29/17] cyanocobalamin (vit B-12) 1,000 mcg tablet 1,000 mcg PO QDAY 06/24/17 [History Confirmed 09/29/17] levothyroxine 150 mcg capsule 150 mcg PO QDAY cap 06/24/17 [History Confirmed 09/29/17] lorazepam 0.5 mg tablet 0.5 mg PO QDAY PRN tab 06/24/17 [History Confirmed ] paroxetine 20 mg tablet 20 mg PO QDAY 06/24/17 [History Confirmed 09/29/17] thiamine HCl (vitamin B1) 100 mg tablet 50 mg PO QDAY tab 06/24/17 [History Confirmed 09/29/17] atorvastatin 80 mg tablet 80 mg PO QDAY 06/28/17 [History Confirmed 09/29/17] metformin 500 mg tablet 500 mg PO DAILY tab 07/26/17 [History Confirmed ] Clopidogrel Bisulfate [Clopidogrel] 75 mg PO DAILY 08/01/17 [History Confirmed 09/29/17] glimepiride 1 mg tablet 1 mg PO QAM 08/04/17 [History Confirmed 09/29/17] omeprazole 40 mg capsule,delayed release 40 mg PO QDAY #30 cap 08/30/17 [Rx Confirmed 09/29/17] lisinopril 20 mg tablet 20 mg PO QDAY #90 tab 09/05/17 [Rx Confirmed 09/29/17] isosorbide mononitrate ER 60 mg tablet,extended release 24 hr 60 mg PO BID #60 tab 09/14/17 [Rx Confirmed 09/29/17] PFSH Medical History Chest pain (Acute) Hypothyroidism (Chronic) Snoring (Chronic) Diabetes mellitus, type II (Chronic) Venous insufficiency (chronic) (peripheral) (Chronic) Hyperlipidemia (Chronic) COPD (chronic obstructive pulmonary disease) (Chronic) Pulmonary nodules (Chronic) Tobacco use disorder (Chronic) Sinus bradycardia (Chronic) Atherosclerotic heart disease of [place] coronary artery with other forms of angina pectoris (Chronic) Surgical History History of left heart catheterization (Chronic) History of colonoscopy (Acute) History of esophagogastroduodenoscopy (Acute) Family History Father , age 61 Myocardial infarction CAD (coronary artery disease) Sudden cardiac Mother , age 80 Congestive heart failure Sister , cause unknown, suspected CVA No problems noted. Social History Smoking Status: Current every day smoker alcohol intake: never substance use type: does not use caffeine: Yes Type: coffee what type of physical activity do you participate in: none seatbelt use: always do you feel safe at home: Yes ROS General: Yes fatigue; no weight change, appetite, colon cancer, breast cancer or weakness HEENT: Yes difficulty swallowing; no eye injury, eye surgery, swollen glands or hoarseness Endocrine: Yes thyroid disease and thyroid cancer; no diabetes mellitus, Hair loss, heat intolerance or cold intolerance Skin: Yes changing moles; no rash Breast: No left breast lump, right breast lump, nipple discharge, breast pain, abnormal mammogram, abnormal US or breast enlargement Musculoskeletal: Yes back problems; no arthritis, rheumatoid arthritis, gout or joint pain Cardiovascular: No murmur, pacemaker, heart disease, atrial fibrillation, high blood pressure, heart attack, heart stent, palpitations, shortness of breat with exertion or chest pain Psychiatric: Yes depression and anxiety; no hearing voices Respiratory: Yes shortness of breath, Yes cough, Yes COPD, Yes emphysema, No sleep apnea, No asthma, No wheezing Gastrointestinal: Yes abdominal pain, Yes nausea or vomiting, Yes acid reflux, No diarrhea, No constipation, No blood in stool, No hemorrhoids, No ulcers, No gallbladder problem, No black,tarry stools Hematologic: Yes blood thinners, No blood disorders, No bleeding, No anemia, No blood clots Neurologic: No weakness Exam Const General: cooperative, other (Very heavy odor of tobacco) [facility] Head: normal to inspection General: appearance normal, both eyes and all related structures Neck: normal visual inspection Breast Palpation: No nipple discharge Other: Notably increased anterior posterior diameter Resp Effort & Inspection: other (Diminished respiratory excursion) Auscultation: Wheezing right side Cardio Rate: regular rate Rhythm: regular rhythm Heart Sounds: no murmurs GI Inspection: normal to inspection Palpation: soft, no hepatosplenomegaly Musc Cervical Spine: other Skin General: no rashes or lesions noted Neuro Cranial Nerves: CN's II-XI intact bilaterally Extrem Other: Calves are supple, mild digital clubbing Psych Affect: normal affect Assessment & Plan Problems 1. Carotid stenosis, right I65.21 Plan: Dr. Piedra will plan to perform a right carotid endarterectomy. Procedure was previously explained to the patient in detail including the risks and benefits. Patient has had the opportunity to ask and have questions answered. Patient verbally understands and agrees with the plan. Patient's was also present in the room. Patient desires to proceed with the proposed procedure. Code Visit Inpatient E&M: 80580 [facility] L1 - Pre-op visit. No charge
[2017-11-02 06:45] LABS: Bedside Glucose 189 mg/dL (70-110)
--- NOTE | 2017-11-02 07:14 | PCM.DC.GS ---
Discharge Diet: Light diet - advance as tolerated - if you have questions about your diet instructions, please talk to you doctor. Discharge Activity: May Not Drive - for 1 week or while taking narcotic pain medicine., May Not Shower May shower in (days): 3 Lifting Restrictions: 10 pounds Call your doctor if your incision/area has: Continuous Slow Oozing, Sudden Increased Bleeding, Increased Pain/ Swelling, Increased Redness, Foul Smelling Discharge Call your doctor if you observe: Fever of 101 or Higher Suture Line Care: Avoid Pulling/Pushing, Avoid Pinching/Bending Additional Dressing/Incision Instructions:: Leave steri-strips in place for 1 week. Allergies/Adverse Reactions: Allergies No Known Allergies Allergy (Verified 10/26/17 11:13) Medications to take at Discharge albuterol sulfate 2.5 mg/3 mL (0.083 %) solution for nebulization 2.5 mg INHALATION BID ml 06/24/17 aspirin 81 mg tablet,delayed release 81 mg PO QDAY 06/24/17 budesonide-formoterol HFA 160 mcg-4.5 mcg/actuation aerosol inhaler 2 puff INHALATION Q12H 06/24/17 cyanocobalamin (vit B-12) 1,000 mcg tablet 1,000 mcg PO QDAY 06/24/17 levothyroxine 150 mcg capsule 150 mcg PO QDAY cap 06/24/17 lorazepam 0.5 mg tablet 0.5 mg PO QDAY PRN tab 06/24/17 paroxetine 20 mg tablet 20 mg PO QDAY 06/24/17 thiamine HCl (vitamin B1) 100 mg tablet 50 mg PO QDAY tab 06/24/17 atorvastatin 80 mg tablet 80 mg PO QDAY 06/28/17 metformin 500 mg tablet 500 mg PO DAILY tab 07/26/17 Clopidogrel Bisulfate [Clopidogrel] 75 mg PO DAILY 08/01/17 glimepiride 1 mg tablet 1 mg PO QAM 08/04/17 Hydrocodone Bitart/Apap 5-325 [[place] 5MG-325MG] 1 tablet PO Q6H PRN PRN 3 Days #8 tablet 11/02/17 Isosorbide Mononitrate [Isosorbide Mononitrate ER] 60 mg PO BID 11/02/17 Lisinopril 20 mg PO QDAY 11/02/17 Omeprazole 40 mg PO QDAY 11/02/17 The following prescriptions were given: Hydrocodone Bitart/Apap 5-325 [[place] 5MG-325MG] 1 tablet PO Q6H PRN PRN 3 Days #8 tablet PRN Reason: Pain Primary Care Physician: Xander Piedra III, MD [Primary Care Provider] - Please Follow Up With: Charles Piedra MD - [phone] When: Call to make an appointment to be seen in about 10 days.
--- NOTE | 2017-11-02 07:15 | PLAQ_PTH ---
PATIENT: JOSE ARMANDO ARNETT LOC: MS2 U#:[id number] AGE/SX: 77/M [place] [facility] RE11/02/[address]: Dr. Charles Piedra MD : 1940 BED: 1 DIS: 11/03/2017 SPEC #: [id number] RECD: 11/02/17 15:15 STATUS: ANTONETTE REQ #: [id number] REBECCA: 11/02/17 07:[address]: Charles Piedra DEPT: SURGICAL PATHOLOGY RECD BY: Jose Armando Mancia ENTERED: 11/03/17 08:16 SP TYPE: PLAQUE OTHR DR: Dr. Xander Piedra III, MD Tissues: PLAQUE Procedures: Decalcification bone/plaque Surgery Specimen Level III HEADER OPERATION: Carotid endarterectomy PRE-OP DIAGNOSIS: Right carotid stenosis TISSUE SUBMITTED: Right carotid plaque MICROSCOPIC DIAGNOSIS Right carotid plaque, endarterectomy: Calcified atheromatous plaque consistent with severe stenosis. AM:shauna 11/04/17 GROSS DESCRIPTION Received in fixative is one container labeled with the patient's name and designated right carotid plaque. The specimen consists of a previously opened tubular piece of bol[place], indurated tissue. The specimen is Y-shape and measures 4 cm in length and up to 1.5 cm in diameter. Sections reveal focally almost completely obliterated lumen. The specimen cuts focally with gritty sensation. Laboratory Aide sections are submitted in one cassette after decalcification. / SJ:shauna 11/03/17 TC: 5 CPT: 52854, 09213
[2017-11-02] MEDS: Cefazolin 2 GM in 0.9% Normal Saline 100 ML IV (07:16)
[2017-11-02] MEDS: Heparin Injection (Vial) 5,000 UNIT/ML VIAL 5000 UNIT (07:44)
[2017-11-02] MEDS: Bupivacaine Mpf 0.5% 30 ML VIAL (09:43)
[2017-11-02 11:11] LABS: Bedside Glucose 148 mg/dL (70-110)
--- NOTE | 2017-11-02 13:15 | CASEMGMT ---
Attempted to see pt- unable to assess at this time. Facundo BSN RN ACM
[2017-11-02] MEDS: Cefazolin 1 GM/50 ML BAG IV ×2 (16:12→22:42)
[2017-11-02] MEDS: Glimepiride 1 MG Tablet PO (16:14)
[2017-11-02] MEDS: Aspirin E.C. 81 MG Tablet PO (16:14)
[2017-11-02] MEDS: metFORMIN HCl 1,000 MG Tablet 1000 MG PO (16:15)
[2017-11-02 16:25] LABS: Bedside Glucose 135 mg/dL (70-110)
[2017-11-02] MEDS: Budesonide Respules 0.5 MG/2 ML AMPUL.NEB. INHALATION (19:02)
[2017-11-02] MEDS: Albuterol 2.5 MG/3 ML VIAL.NEB. INHALATION (19:02)
[2017-11-02] MEDS: Isosorbide Mononitrate 60 MG Tablet PO (21:28)
[2017-11-02] MEDS: Atorvastatin Calcium 80 MG Tablet PO (21:28)
[2017-11-02 21:35] LABS: Bedside Glucose 144 mg/dL (70-110)
[2017-11-02] MEDS: 0.9% NaCl Peripheral Flush Adult/Peds IV (22:43)
[2017-11-03 02:12] VITALS: BP 138/72; PULSE 80; RESP 16; TEMP 37.1; O2SAT 96
[2017-11-03] MEDS: Levothyroxine 150 MCG Tablet PO (05:06)
[2017-11-03] MEDS: Acetaminophen 325 MG Tablet PO (06:43)
[2017-11-03 06:55] LABS: Bedside Glucose 151 mg/dL (70-110)
[2017-11-03] MEDS: Budesonide Respules 0.5 MG/2 ML AMPUL.NEB. INHALATION (07:11)
[2017-11-03] MEDS: Albuterol 2.5 MG/3 ML VIAL.NEB. INHALATION (07:12)
[2017-11-03 07:14] VITALS: PULSE 69; RESP 16; O2SAT 96
--- NOTE | 2017-11-03 07:14 | PCM.DC.SUM ---
Discharge Date and Diagnosis Date of Admission: 11/02/17 Date of Discharge: 11/03/17 - Primary Discharge Diagnosis Right carotid stenosis - Secondary Discharge Diagnosis Chronic Problems (Last Updated 10/05/17 @ 11:36 by Yesika Medina) Stented coronary artery (Chronic) 08/02/17: BEATRIZ to mid LAD, mid DX 1, and ostial DX1 per Dr. Caldwell @ [facility] MONI (obstructive sleep apnea) (Chronic) Emphysema lung (Chronic) Hypothyroidism (Chronic) Snoring (Chronic) Diabetes mellitus, type II (Chronic) Venous insufficiency (chronic) (peripheral) (Chronic) Hyperlipidemia (Chronic) COPD (chronic obstructive pulmonary disease) (Chronic) Pulmonary nodules (Chronic) per chest CT 06/25/2016 Tobacco use disorder (Chronic) Sinus bradycardia (Chronic) Atherosclerotic heart disease of [place] coronary artery with other forms of angina pectoris (Chronic) 08/02/17: BEATRIZ to mid LAD, mid DX 1, and ostial DX1 per Dr. Caldwell @ [facility]. 06/29/[address] [facility] [address] Rico Bach: 60% stenosis LAD, no obstructive CAD History of left heart catheterization (Chronic) 06/29/[address] [facility] [address] Rico Bach: 60% stenosis LAD, no obstructive CAD Hospital Course and Treatment Operations: - - Right carotid endarterectomy Summary of Care Provided: The patient is a 77 year old M who presented for an elective right carotid endarterectomy. Dr. Piedra performed a right carotid endarterectomy on 11/02/17. Patient tolerated the procedure well. He denies vision changes, weakness of single extremity, dizziness and lightheadedness. Incision c/d/i. Steri-strips in place. Patient had an uneventful hospitalization. Upon discharge, patient is noted to have bilateral wheezing. He does have an inhaler at home. He continues to smoke. Neurology exam is intact. Discussed patient with Dr. Piedra. Patient will be discharged to home on Tylenol for pain control. He will follow-up in our office in 10 days. Discharge Diet: Light diet - advance as tolerated - if you have questions about your diet instructions, please talk to you doctor. Discharge Activity: May Not Drive - for 1 week or while taking narcotic pain medicine., May Not Shower May shower in (days): 3 Call your doctor if your incision/area has: Continuous Slow Oozing, Sudden Increased Bleeding, Increased Pain/ Swelling, Increased Redness, Foul Smelling Discharge Call your doctor if you observe: Fever of 101 or Higher Suture Line Care: Avoid Pulling/Pushing, Avoid Pinching/Bending Additional Dressing/Incision Instructions:: Leave steri-strips in place for 1 week. Home Medications: Medications to take at Discharge albuterol sulfate 2.5 mg/3 mL (0.083 %) solution for nebulization 2.5 mg INHALATION BID ml 06/24/17 aspirin 81 mg tablet,delayed release 81 mg PO QDAY 06/24/17 budesonide-formoterol HFA 160 mcg-4.5 mcg/actuation aerosol inhaler 2 puff INHALATION Q12H 06/24/17 cyanocobalamin (vit B-12) 1,000 mcg tablet 1,000 mcg PO QDAY 06/24/17 levothyroxine 150 mcg capsule 150 mcg PO QDAY cap 06/24/17 lorazepam 0.5 mg tablet 0.5 mg PO QDAY PRN tab 06/24/17 paroxetine 20 mg tablet 20 mg PO QDAY 06/24/17 thiamine HCl (vitamin B1) 100 mg tablet 50 mg PO QDAY tab 06/24/17 atorvastatin 80 mg tablet 80 mg PO QDAY 06/28/17 metformin 500 mg tablet 500 mg PO DAILY tab 07/26/17 Clopidogrel Bisulfate [Clopidogrel] 75 mg PO DAILY 08/01/17 glimepiride 1 mg tablet 1 mg PO QAM 08/04/17 Hydrocodone Bitart/Apap 5-325 [[place] 5MG-325MG] 1 tablet PO Q6H PRN PRN 3 Days #8 tablet 11/02/17 Isosorbide Mononitrate [Isosorbide Mononitrate ER] 60 mg PO BID 11/02/17 Lisinopril 20 mg PO QDAY 11/02/17 Omeprazole 40 mg PO QDAY 11/02/17 Following Prescrptions Were Given to Patient: Hydrocodone Bitart/Apap 5-325 [[place] 5MG-325MG] 1 tablet PO Q6H PRN PRN 3 Days #8 tablet PRN Reason: Pain Primary Care Physician: Xander Piedra III, MD [Primary Care Provider] - Please Follow Up With: Charles Piedra MD - [phone] When: Call to make an appointment to be seen in about 10 days. Medical Necessity - Tobacco Use Smoking Status: Current every day smoker Tobacco Use: Cigarettes Meaningful Use Info Meaningful Use Diagnoses (Choose all that apply): None applicable Code Visit Inpatient E&M: 51599 Disch Hosp
--- NOTE | 2017-11-03 07:21 | DS.PCM_ITS ---
Discharge Date and Diagnosis Date of Admission: 11/02/17 Date of Discharge: 11/03/17 - Primary Discharge Diagnosis Right carotid stenosis - Secondary Discharge Diagnosis Chronic Problems (Last Updated 10/05/17 @ 11:36 by Yesika Medina) Stented coronary artery (Chronic) 08/02/17: BEATRIZ to mid LAD, mid DX 1, and ostial DX1 per Dr. Caldwell @ [facility] MONI (obstructive sleep apnea) (Chronic) Emphysema lung (Chronic) Hypothyroidism (Chronic) Snoring (Chronic) Diabetes mellitus, type II (Chronic) Venous insufficiency (chronic) (peripheral) (Chronic) Hyperlipidemia (Chronic) COPD (chronic obstructive pulmonary disease) (Chronic) Pulmonary nodules (Chronic) per chest CT 06/25/2016 Tobacco use disorder (Chronic) Sinus bradycardia (Chronic) Atherosclerotic heart disease of [place] coronary artery with other forms of angina pectoris (Chronic) 08/02/17: BEATRIZ to mid LAD, mid DX 1, and ostial DX1 per Dr. Caldwell @ [facility]. [address] [facility] [address] Rico Bach: 60% stenosis LAD, no obstructive CAD History of left heart catheterization (Chronic) 06/29/[address] [facility] [address] Rico Bach: 60% stenosis LAD, no obstructive CAD Hospital Course and Treatment Operations: - - Right carotid endarterectomy Summary of Care Provided: The patient is a 77 year old M who presented for an elective right carotid endarterectomy. Dr. Piedra performed a right carotid endarterectomy on 11/02/17. Patient tolerated the procedure well. He denies vision changes, weakness of single extremity, dizziness and lightheadedness. Incision c/d/i. Steri-strips in place. Patient had an uneventful hospitalization. Upon discharge, patient is noted to have bilateral wheezing. He does have an inhaler at home. He continues to smoke. Neurology exam is intact. Discussed patient with Dr. Piedra. Patient will be discharged to home on Tylenol for pain control. He will follow-up in our office in 10 days. Discharge Diet: Light diet - advance as tolerated - if you have questions about your diet instructions, please talk to you doctor. Discharge Activity: May Not Drive - for 1 week or while taking narcotic pain medicine., May Not Shower May shower in (days): 3 Call your doctor if your incision/area has: Continuous Slow Oozing, Sudden Increased Bleeding, Increased Pain/ Swelling, Increased Redness, Foul Smelling Discharge Call your doctor if you observe: Fever of 101 or Higher Suture Line Care: Avoid Pulling/Pushing, Avoid Pinching/Bending Additional Dressing/Incision Instructions:: Leave steri-strips in place for 1 week. Home Medications: Medications to take at Discharge albuterol sulfate 2.5 mg/3 mL (0.083 %) solution for nebulization 2.5 mg INHALATION BID ml 06/24/17 aspirin 81 mg tablet,delayed release 81 mg PO QDAY 06/24/17 budesonide-formoterol HFA 160 mcg-4.5 mcg/actuation aerosol inhaler 2 puff INHALATION Q12H 06/24/17 cyanocobalamin (vit B-12) 1,000 mcg tablet 1,000 mcg PO QDAY 06/24/17 levothyroxine 150 mcg capsule 150 mcg PO QDAY cap 06/24/17 lorazepam 0.5 mg tablet 0.5 mg PO QDAY PRN tab 06/24/17 paroxetine 20 mg tablet 20 mg PO QDAY 06/24/17 thiamine HCl (vitamin B1) 100 mg tablet 50 mg PO QDAY tab 06/24/17 atorvastatin 80 mg tablet 80 mg PO QDAY 06/28/17 metformin 500 mg tablet 500 mg PO DAILY tab 07/26/17 Clopidogrel Bisulfate [Clopidogrel] 75 mg PO DAILY 08/01/17 glimepiride 1 mg tablet 1 mg PO QAM 08/04/17 Hydrocodone Bitart/Apap 5-325 [[place] 5MG-325MG] 1 tablet PO Q6H PRN PRN 3 Days # 8 tablet 11/02/17 Isosorbide Mononitrate [Isosorbide Mononitrate ER] 60 mg PO BID 11/02/17 Lisinopril 20 mg PO QDAY 11/02/17 Omeprazole 40 mg PO QDAY 11/02/17 Following Prescrptions Were Given to Patient: Hydrocodone Bitart/Apap 5-325 [[place] 5MG-325MG] 1 tablet PO Q6H PRN PRN 3 Days # 8 tablet PRN Reason: Pain Primary Care Physician: Xander Piedra III, MD [Primary Care Provider] - Please Follow Up With: Charles Piedra MD - [phone] When: Call to make an appointment to be seen in about 10 days. Medical Necessity - Tobacco Use Smoking Status: Current every day smoker Tobacco Use: Cigarettes Meaningful Use Info Meaningful Use Diagnoses (Choose all that apply): None applicable Code Visit Inpatient E&M: 31713 Disch Hosp
[2017-11-03 07:41] VITALS: BP 126/69; PULSE 86; RESP 16; TEMP 36.7; O2SAT 96
--- NOTE | 2017-11-03 09:20 | CASEMGMT ---
RN CM attempted to complete RN CM assessment at this time, patient has already discharged from hospital.
== END 2017-11-03 08:36 | disposition home or self-care (01) | DRG 39 ==
PROVIDERS: Anesthesiology; Admitting Provider Surgery; Family Provider Family Medicine; PCP Family Medicine; Visit Provider Surgery
PROC: 03CK0ZZ Extirpation of Matter from Right Internal Carotid Artery, Open Approach (ICD-10-PCS; CPT 35301; principal; 2017-11-02 06:55)
DX: I65.21 Occlusion and stenosis of right carotid artery (principal); F17.210 Nicotine dependence, cigarettes, uncomplicated; E03.9 Hypothyroidism, unspecified; I25.10 Atherosclerotic heart disease of native coronary artery without angina pectoris; E11.9 Type 2 diabetes mellitus without complications; Z79.84 Long term (current) use of oral hypoglycemic drugs; I87.2 Venous insufficiency (chronic) (peripheral); E78.5 Hyperlipidemia, unspecified; G47.33 Obstructive sleep apnea (adult) (pediatric); J43.9 Emphysema, unspecified; Z95.5 Presence of coronary angioplasty implant and graft; I10 Essential (primary) hypertension
CPT/HCPCS: 71046; 80048; 80076; 82962; 83036; 84443; 85025; 85610; 85730; 88304; 88311; 93005; 94640; J7040; J7120; A4216; J2405

== ENCOUNTER → 2017-11-10 08:36 | Outpatient (CLI) | payer MEDICARE, SELFPAY ==
[2017-08-02 11:16] VITALS: BMI 26.0
--- NOTE | 2017-11-10 08:36 | DT_ITS ---
This patient was seen during an EMR downtime November 07, 2017 - November 14, 2017. This patient may have a combination of paper and electronic documentation or all paper documentation. All documentation is viewable within the e-chart portion of [facility] for each patient visit.
--- NOTE | 2017-11-10 08:45 | CT_ITS ---
STUDY: CTA OF THE BRAIN REASON FOR EXAM: Male, 77 years old. Visualized changes RADIATION DOSAGE (If Supplied By Facility): CTDIvol = ( 25.37 ) mGy, DLP = ( 682.54 ) mGycm TECHNIQUE: CT angiography was performed with a multi-detector CT scanner. Data acquisition was obtained from the skull base through the vertex following intravenous administration of ml of . MIP images were reconstructed from the axial data set. Post-processing of the angiographic images was performed, with multiplanar reformation and 3D reconstruction. Individualized dose optimization techniques were used for this CT. COMPARISON: None. FINDINGS: Normal bilateral petrous carotid arteries. Normal right cavernous carotid artery with a normal supraclinoid bifurcation. Normal left cavernous carotid artery with a normal supraclinoid bifurcation. Normal right A1 segments of the anterior cerebral artery. Normal left A1 segments of the anterior cerebral artery. Normal intact anterior communicating artery (ACOM). Normal bilateral A2 segments of the anterior cerebral arteries. Normal right M1 and M2 segments of the middle cerebral arteries, with a normal M1 bifurcation. Normal left M1 and M2 segments of the middle cerebral arteries, with a normal M1 bifurcation. Normal right posterior communicating artery (PCOM). Normal left posterior communicating artery (PCOM). Visualized proximal portion of the RIGHT vertebral artery is extremely small in caliber. 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 LEFT vertebral artery is normal in caliber. Basilar artery is normal in caliber. The visualized bilateral superior cerebellar (SCA) arteries are normal. Normal bilateral P1, P2 and visualized P3 segments of the posterior cerebral arteries. There is no demonstrated aneurysm of the [place]. There is no demonstrated abnormality of the visualized brain. CT/CTA Head W/WO Contrast IMPRESSION: Visualized proximal portion of the RIGHT vertebral artery is extremely small in caliber. 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 LEFT vertebral artery is normal in caliber. Basilar artery is normal in caliber. Intracranial carotid arteries and branches are patent. Electronically Signed: Jorge Chou MD at 5:25 EDT , Service support ,
--- NOTE | 2017-11-10 08:45 | CT_ITS ---
STUDY: CTA NECK WITH CONTRAST REASON FOR EXAM: Male, 77 years old. Visualized changes RADIATION DOSAGE (If Supplied By Facility): CTDIvol = ( 25.37 ) mGy, DLP = ( 682.54 ) mGycm TECHNIQUE: CT angiography with multi-detector data acquisition was performed from the aortic arch to the skull base following intravenous administration of 100ml ml of Isovue 370 contrast. MIP images were reconstructed from the axial data set. Post-processing of the angiographic images was performed, with multiplanar reformation and 3D reconstruction. Individualized dose optimization techniques were used for this CT. COMPARISON: None. FINDINGS: AORTIC ARCH: Aortic arch is not included on examination. Origins of the great vessels are not included. RIGHT CAROTID ARTERIES: Normal right common carotid artery (CCA). There is irregularity of the RIGHT carotid bulb without evidence of stenosis. Normal origin of the right internal carotid (ICA) artery without a hemodynamically significant stenosis. Normal visualized cervical portion of the right internal carotid artery. Normal origin of the right external carotid artery (ECA). LEFT CAROTID ARTERIES: There is soft plaque causing mild stenosis of the distal LEFT common carotid artery less than 50%. There is calcified plaque at the LEFT carotid bulb without evidence of stenosis. Normal origin of the left internal carotid (ICA) artery without a hemodynamically significant stenosis. Normal visualized cervical portion of the left internal carotid artery. Normal origin of the left external carotid artery (ECA). VERTEBRAL ARTERIES: The LEFT vertebral artery is patent and normal in caliber. 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 Findings are new since the prior MR a dated 02/13/2010 suggests possible vertebral artery dissection. CT/CTA Neck W/WO Contrast IMPRESSION: There is irregularity of the RIGHT carotid bulb without evidence of stenosis. Normal origin of the right internal carotid (ICA) artery without a hemodynamically significant stenosis. There is soft plaque causing mild stenosis of the distal LEFT common carotid artery less than 50%. There is calcified plaque at the LEFT carotid bulb without evidence of stenosis. Normal origin of the left internal carotid (ICA) artery without a hemodynamically significant stenosis. The LEFT vertebral artery is patent and normal in caliber. 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 Findings are new since the prior MR a dated 02/13/2010 suggests possible vertebral artery dissection. Electronically Signed: Jorge Chou MD at 5:29 EDT , Service support ,
== END ==
PROVIDERS: Family Provider Family Medicine; PCP Family Medicine; Visit Provider Surgery
DX: I65.01 Occlusion and stenosis of right vertebral artery (principal); I65.22 Occlusion and stenosis of left carotid artery
CPT/HCPCS: 70496; 70498; Q9967

== ENCOUNTER 2018-08-27 13:01 | Inpatient (IN) | payer MEDICARE, SELFPAY ==
[2017-08-02 11:16] VITALS: BMI 26.0
[2018-08-27] VITALS (19 sets, daily range): BP systolic 157–182; BP diastolic 74–99; PULSE 69–107; RESP 18–31; TEMP 36.7–39; O2SAT 92–98; BMI 25.4; BMI 24.7
--- NOTE | 2018-08-27 14:07 | EKG12_ITS ---
Test Reason : Blood Pressure : / mmHG Vent. Rate : 088 BPM Atrial Rate : 088 BPM P-R Int : 150 ms QRS Dur : 076 ms QT Int : 354 ms P-R-T Axes : 071 074 046 degrees QTc Int : 428 ms Normal sinus rhythm Possible Left atrial enlargement Borderline ECG Confirmed by RAISA MAO, YARITZA ([id number]), subeditor ADDIE SHEEHAN ([id number]) on 08/28/2018 1:08:36 PM Referred By: BB Confirmed By:YARITZA KLINE MD
--- NOTE | 2018-08-27 14:07 | RAD_ITS ---
STUDY: X-RAY CHEST REASON FOR EXAM: Male, 78 years old. Cough and shortness of breath. TECHNIQUE: Single frontal view of the chest. COMPARISON: October 26, 2017 FINDINGS: There is stable hyperexpansion with scarring in the left midlung zone. There is no demonstrated pleural abnormality. There is cardiomegaly unchanged. Normal mediastinum and zuhair. Normal visualized pulmonary arteries. Normal visualized aortic arch and descending thoracic aorta. Normal visualized thoracic spine. Normal visualized ribs, clavicles, and shoulders. There is no demonstrated abnormality of the visualized soft tissue structures of the upper abdomen. RAD/Chest 1 View (Portable) IMPRESSION: Stable appearance of the chest with no new or acute finding. Electronically Signed: Carlton Friedman MD at 15:24 EDT , Service support ,
--- NOTE | 2018-08-27 14:09 | ED.VIS.GEN ---
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 No flu vaccine this year. Albuterol helps a little, but he feels today that he is having significant trouble breathing even at rest. No chest discomfort. - Past Medical History (1) Atherosclerotic heart disease of [place] coronary artery with other forms of angina pectoris Status: Chronic Comment: 08/02/17: BEATRIZ to mid LAD, mid DX 1, and ostial DX1 per Dr. Caldwell @ [facility]. 06/29/[address] [facility] [address] Rico Bach: 60% stenosis LAD, no obstructive CAD (2) COPD (chronic obstructive pulmonary disease) Status: Chronic (3) Diabetes mellitus, type II Status: Chronic (4) Hyperlipidemia Status: Chronic (5) Hypothyroidism Status: Chronic (6) MONI (obstructive sleep apnea) Status: Chronic (7) Pulmonary nodules Status: Chronic Comment: per chest CT 06/25/2016 (8) Venous insufficiency (chronic) (peripheral) Status: Chronic Past Medical History - Allergies and Home Meds Allergies/Adverse Reactions: Allergies No Known Allergies Allergy (Verified 08/27/18 13:05) Primary Care Physician: Xander Piedra III, MD [Primary Care Provider] - Surgical History: angioplasty - With cardiac stent, - - Previous heart catheterization Previous upper and lower endoscopy Lives: Alone Smoking Status: Current every day smoker Review of Systems General: Reports: Chills, Fever, Malaise. Denies: Sweats Eyes: Denies: Visual changes - bilaterally, Diplopia ENT: Reports: Rhinorrhea, Sore throat - Mild. Denies: Bilateral ear pain Cardiovascular: Denies: Chest pain, Palpitations Respiratory: Reports: Dyspnea, Cough, Dyspnea on exertion. Denies: Sputum, Orthopnea Gastrointestinal: Denies: Abdominal pain, Nausea, Vomiting, Diarrhea, Melena, Hematochezia Genitourinary: Denies: Dysuria, Hematuria, Frequency Musculoskeletal: Denies: Back pain, Swelling, Extremity Pain Skin: Denies: Rash, Wounds Neurological: Denies: Headache, Weakness, Numbness Physical Exam Vital Signs/Narrative: Vital Signs Temp Pulse Resp BP Pulse Ox 08/27/18 13:30 101.8 F H 93 30 H 176/97 H 96 08/27/18 13:26 94 25 H 182/95 H 92 08/27/18 13:02 100.2 F H 100 18 163/79 H 92 Inital Vital Signs reviewed: Yes General: Well nourished, Well developed, Acute Distress - Mild respiratory Head: Normocephalic, Atraumatic Eyes: Perrl, EOMI ENT: Moist mucous membranes, No rhinorrhea, TM's clear, Nasal congestion. Negative for: Sinus tenderness Neck: Supple, Nontender, No lymphadenopathy, No JVD Cardiovascular: Regular rate, Regular rhythm, No murmurs, Normal S1, Normal S2 Respiratory: No distress, Chest nontender, Wheezing, Diminished - Throughout, symmetrically Abdomen: Soft, Nontender, Nondistended, Normal bowel sounds Back: Nontender, Normal Inspection Extremities: Nontender, No edema. Negative for: Calf Tenderness Skin: Normal color, No rash Neurological: Alert, Oriented x3, Cranial nerves II-XII grossly intact, Normal Strength, Normal Sensation Psychological: Normal affect, Normal Mood Diagnostic/Tx/Re-eval Impressions Chest X-Ray 08/27/18 14:07 IMPRESSION: Stable appearance of the chest with no new or acute finding. Electronically Signed: Carlton Friedman MD at 15:24 EDT , Service support , 08/27/18 14:07 Chest 1 View (Portable) [RAD] Stat 08/27/18 14:30 Mucosa - Nose Influenza Types A,B Direct FA (JULIA) - Final Laboratory Results 08/27/18 08/27/18 08/27/18 13:42 13:42 13:42 WBC 6.4 RBC 4.39 L Hgb 12.5 L Hct 40.2 MCV 91.6 MCH 28.5 MCHC 31.1 L RDW 13.6 RDW Differential 45.3 H Plt Count 176 MPV 10.3 Immature Gran % (Auto) 0.300 Neut % (Auto) 81.0 H Lymph % (Auto) 6.9 L [place] % (Auto) 11.0 H Eos % (Auto) 0.5 Baso % (Auto) 0.3 Absolute Neuts (auto) 5.2 Absolute Lymphs (auto) 0.44 L Total Counted Not Reportable Differential Comment SCANNED PT 13.1 INR 1.0 APTT 34.9 Sodium 134 L Potassium 4.6 Chloride 101 Carbon Dioxide 27.0 Anion Gap 6 BUN 17 Creatinine 1.12 Estim Creat Clear Calc 59.66 Est GFR (MDRD) Af Amer 82 Est GFR (MDRD) Non-Af 67 BUN/Creatinine Ratio 15.2 Glucose 209 H Lactic Acid Calcium 8.8 Total Bilirubin 0.60 AST 22 ALT 25 Alkaline Phosphatase 104 Troponin I < 0.015 Total Protein 7.7 Albumin 3.4 Globulin 4.3 H Albumin/Globulin Ratio 0.8 L 08/27/18 13:42 WBC RBC Hgb Hct MCV MCH MCHC RDW RDW Differential Plt Count MPV Immature Gran % (Auto) Neut % (Auto) Lymph % (Auto) [place] % (Auto) Eos % (Auto) Baso % (Auto) Absolute Neuts (auto) Absolute Lymphs (auto) Total Counted Differential Comment PT INR APTT Sodium Potassium Chloride Carbon Dioxide Anion Gap BUN Creatinine Estim Creat Clear Calc Est GFR (MDRD) Af Amer Est GFR (MDRD) Non-Af BUN/Creatinine Ratio Glucose Lactic Acid 1.5 Calcium Total Bilirubin AST ALT Alkaline Phosphatase Troponin I Total Protein Albumin Globulin Albumin/Globulin Ratio - Rhythm Strip Rhythm Strip: Sinus Rhythm Rate: 85 Ectopy: None - EKG Initial EKG Interpretation: Sinus Rhythm, No Acute Injury Pattern - Medical Decision Making With nebulizer treatments, patient is still significantly wheezy and still feels very short of breath. We agree he should be admitted to the hospital. Chest x-ray shows no infiltrate/pneumonia, influenza is negative. We will give him antibiotics to prevent him from superinfection, but he likely has a viral illness given the history with a COPD exacerbation. He clinically is not septic, he is just too dyspneic to go home. Will give him more treatments as well as an injection of terbutaline and obtain an ABG. With short ambulation, on room air, his pulse ox dropped to 86%. He was immediately placed back on oxygen. Will admit, discussed with hospitalist. ED Disposition - Plan for ED Patient: Disposition: Acute Care Hospital [facility] Diagnosis: COPD with exacerbation, Viral URI with cough, Acute respiratory failure with hypoxia Referrals: Xander Piedra III, MD [Primary Care Provider] -
[2018-08-27 14:20] LABS: Prothrombin Time (Protime)PT. 13.1 SECONDS (11.7-14.9)
--- NOTE | 2018-08-27 14:20 | ED.DCSUM_ITS ---
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 No flu vaccine this year. Albuterol helps a little, but he feels today that he is having significant trouble breathing even at rest. No chest discomfort. - Past Medical History (1) Atherosclerotic heart disease of [place] coronary artery with other forms of angina pectoris Status: Chronic Comment: 08/02/17: BEATRIZ to mid LAD, mid DX 1, and ostial DX1 per Dr. Caldwell @ [facility]. 06/29/[address] [facility] [address] Rico Bach: 60% stenosis LAD, no obstructive CAD (2) COPD (chronic obstructive pulmonary disease) Status: Chronic (3) Diabetes mellitus, type II Status: Chronic (4) Hyperlipidemia Status: Chronic (5) Hypothyroidism Status: Chronic (6) MONI (obstructive sleep apnea) Status: Chronic (7) Pulmonary nodules Status: Chronic Comment: per chest CT 06/25/2016 (8) Venous insufficiency (chronic) (peripheral) Status: Chronic Past Medical History - Allergies and Home Meds Allergies/Adverse Reactions: Allergies No Known Allergies Allergy (Verified 08/27/18 13:05) Primary Care Physician: Xander Piedra III, MD [Primary Care Provider] - Surgical History: angioplasty - With cardiac stent, - - Previous heart catheterization Previous upper and lower endoscopy Lives: Alone Smoking Status: Current every day smoker Review of Systems General: Reports: Chills, Fever, Malaise. Denies: Sweats Eyes: Denies: Visual changes - bilaterally, Diplopia ENT: Reports: Rhinorrhea, Sore throat - Mild. Denies: Bilateral ear pain Cardiovascular: Denies: Chest pain, Palpitations Respiratory: Reports: Dyspnea, Cough, Dyspnea on exertion. Denies: Sputum, Orthopnea Gastrointestinal: Denies: Abdominal pain, Nausea, Vomiting, Diarrhea, Melena, Hematochezia Genitourinary: Denies: Dysuria, Hematuria, Frequency Musculoskeletal: Denies: Back pain, Swelling, Extremity Pain Skin: Denies: Rash, Wounds Neurological: Denies: Headache, Weakness, Numbness Physical Exam Vital Signs/Narrative: Vital Signs Temp Pulse Resp BP Pulse Ox 08/27/18 13:30 101.8 F H 93 30 H 176/97 H 96 08/27/18 13:26 94 25 H 182/95 H 92 08/27/18 13:02 100.2 F H 100 18 163/79 H 92 Inital Vital Signs reviewed: Yes General: Well nourished, Well developed, Acute Distress - Mild respiratory Head: Normocephalic, Atraumatic Eyes: Perrl, EOMI ENT: Moist mucous membranes, No rhinorrhea, TM's clear, Nasal congestion. Negative for: Sinus tenderness Neck: Supple, Nontender, No lymphadenopathy, No JVD Cardiovascular: Regular rate, Regular rhythm, No murmurs, Normal S1, Normal S2 Respiratory: No distress, Chest nontender, Wheezing, Diminished - Throughout, s ymmetrically Abdomen: Soft, Nontender, Nondistended, Normal bowel sounds Back: Nontender, Normal Inspection Extremities: Nontender, No edema. Negative for: Calf Tenderness Skin: Normal color, No rash Neurological: Alert, Oriented x3, Cranial nerves II-XII grossly intact, Normal Strength, Normal Sensation Psychological: Normal affect, Normal Mood Diagnostic/Tx/Re-eval Impressions Chest X-Ray 08/27/18 14:07 IMPRESSION: Stable appearance of the chest with no new or acute finding. Electronically Signed: Carlton Friedman MD at 15:24 EDT , Service support , 08/27/18 14:07 Chest 1 View (Portable) [RAD] Stat 08/27/18 14:30 Mucosa - Nose Influenza Types A,B Direct FA (JULIA) - Final Laboratory Results 08/27/18 08/27/18 08/27/18 13:42 13:42 13:42 WBC 6.4 RBC 4.39 L Hgb 12.5 L Hct 40.2 MCV 91.6 MCH 28.5 MCHC 31.1 L RDW 13.6 RDW Differential 45.3 H Plt Count 176 MPV 10.3 Immature Gran % (Auto) 0.300 Neut % (Auto) 81.0 H Lymph % (Auto) 6.9 L [place] % (Auto) 11.0 H Eos % (Auto) 0.5 Baso % (Auto) 0.3 Absolute Neuts (auto) 5.2 Absolute Lymphs (auto) 0.44 L Total Counted Not Reportable Differential Comment SCANNED PT 13.1 INR 1.0 APTT 34.9 Sodium 134 L Potassium 4.6 Chloride 101 Carbon Dioxide 27.0 Anion Gap 6 BUN 17 Creatinine 1.12 Estim Creat Clear Calc 59.66 Est GFR (MDRD) Af Amer 82 Est GFR (MDRD) Non-Af 67 BUN/Creatinine Ratio 15.2 Glucose 209 H Lactic Acid Calcium 8.8 Total Bilirubin 0.60 AST 22 ALT 25 Alkaline Phosphatase 104 Troponin I < 0.015 Total Protein 7.7 Albumin 3.4 Globulin 4.3 H Albumin/Globulin Ratio 0.8 L 08/27/18 13:42 WBC RBC Hgb Hct MCV MCH MCHC RDW RDW Differential Plt Count MPV Immature Gran % (Auto) Neut % (Auto) Lymph % (Auto) [place] % (Auto) Eos % (Auto) Baso % (Auto) Absolute Neuts (auto) Absolute Lymphs (auto) Total Counted Differential Comment PT INR APTT Sodium Potassium Chloride Carbon Dioxide Anion Gap BUN Creatinine Estim Creat Clear Calc Est GFR (MDRD) Af Amer Est GFR (MDRD) Non-Af BUN/Creatinine Ratio Glucose Lactic Acid 1.5 Calcium Total Bilirubin AST ALT Alkaline Phosphatase Troponin I Total Protein Albumin Globulin Albumin/Globulin Ratio - Rhythm Strip Rhythm Strip: Sinus Rhythm Rate: 85 Ectopy: None - EKG Initial EKG Interpretation: Sinus Rhythm, No Acute Injury Pattern - Medical Decision Making With nebulizer treatments, patient is still significantly wheezy and still feels very short of breath. We agree he should be admitted to the hospital. Chest x-ray shows no infiltrate/pneumonia, influenza is negative. We will give him antibiotics to prevent him from superinfection, but he likely has a viral illness given the history with a COPD exacerbation. He clinically is not septic, he is just too dyspneic to go home. Will give him more treatments as well as an injection of terbutaline and obtain an ABG. With short ambulation, on room air, his pulse ox dropped to 86%. He was immediately placed back on oxygen. Will admit, discussed with hospitalist. ED Disposition - Plan for ED Patient: Disposition: Acute Care Hospital [facility] Diagnosis: COPD with exacerbation, Viral URI with cough, Acute respiratory failure with hypoxia Referrals: Xander Piedra III, MD [Primary Care Provider] -
[2018-08-27 14:21] LABS: Partial Thromboplast Time 34.9 Seconds (24.1-36.2)
[2018-08-27 14:22] LABS: Absolute Lymphocyte Count 0.44 X10^3/ul (0.83-4.51); Absolute Neutrophil Count 5.2 X10^3/uL (2.0-7.7); Basophil# 0.02 X10^3/uL; Basophil% 0.3 % (0-1); Eosinophil# 0.03 X10^3/uL; Eosinophils% 0.5 % (0-5); Hematocrit 40.2 % (40-54); Hemoglobin 12.5 g/dl (13.0-16.5); Lymphocyte # 0.44 X10^3/ul (4.0); Lymphocyte % 6.9 % (19-41); Mean Corp Hgb Conc 31.1 g/gl (32-36); Mean Corpuscular Hgb 28.5 pg (27.0-32.0); Mean Corpuscular Volume 91.6 fL (80-94); Mean Platelet Vol. 10.3 fl (6.2-12.0); Neutrophil # 5.18 X10^3/uL (2.7-7.7); Platelet Count 176 K/mm3 (150-450); RBC Distribution Width CV 13.6 % (11.6-14.6); RBC Distribution Width SD 45.3 fl (35.1-43.9); Red Blood Count 4.39 M/mm3 (4.6-6.2); White Blood Count 6.4 K/mm3 (4.4-11.0)
[2018-08-27 14:29] LABS: ALB/GLOB Ratio 0.8 RATIO (0.9-2.4); AST(SGOT) 22 U/L (15-37); Alanine Aminotransfer ALT/SGPT 25 U/L (16-61); Albumin, Serum 3.4 g/dL (3.2-5.0); Alkaline Phosphatase 104 U/L (45-117); Anion Gap 6 (5-15); BUN 17 mg/dL (7-18); BUN/Creat Ratio 15.2 RATIO (10-20); Calcium,Total 8.8 mg/dL (8.5-10.1); Chloride 101 mmol/L (98-107); Creatinine, Serum 1.12 mg/dL (0.70-1.30); EST Glomerular Filtration Rate 67 mL/min (>60); Est Glom Filt Rate - Afr Amer 82 mL/min (>60); Estimated Creatinine Clearance 59.66 ml/min; Globulin 4.3 g/dL (2.2-4.2); Glucose 209 mg/dL (74-106); Lactic Acid 1.5 mmol/L (0.4-2.0); Potassium 4.6 mmol/L (3.5-5.1); Protein, Total 7.7 g/dL (6.4-8.2); Sodium Level 134 mmol/L (136-145)
[2018-08-27 14:36] LABS: Differential Indicated SCAN CRITERIA MET; POSITIVE COUNT NO; POSITIVE DIFFERENTIAL YES; POSITIVE MORPHOLOGY NO
[2018-08-27 14:37] LABS: Differential Comment SCANNED
[2018-08-27] MEDS: Ipratropium/Albuterol Sulfate 3 ML AMPUL.NEB INHALATION ×2 (14:53→19:34)
[2018-08-27] MEDS: Albuterol 2.5 MG/3 ML VIAL.NEB. INHALATION ×5 (14:54→16:45)
[2018-08-27] MEDS: Acetaminophen 500 MG Tablet 1000 MG PO (15:50)
--- NOTE | 2018-08-27 16:05 | ED.RN ---
pt ambulates to the restroom, given urine cup for UA. pt unable to collect urine, it came out to fast and i forgot. MD aware, no new orders given.
[2018-08-27] MEDS: MethylPREDNISolone 125 MG/2 ML Vial IV (16:08)
[2018-08-27] MEDS: Terbutaline 1 MG/ML Vial 0.25 MG SC (16:25)
--- NOTE | 2018-08-27 16:42 | HP.PCM_ITS ---
Problem List (1) COPD with exacerbation Status: Chronic (2) Viral URI with cough Status: Acute (3) Acute respiratory failure with hypoxia Status: Acute (4) Stented coronary artery Status: Chronic Comment: 08/02/17: BEATRIZ to mid LAD, mid DX 1, and ostial DX1 per Dr. Caldwell @ [facility] (5) MONI (obstructive sleep apnea) Status: Chronic (6) Diabetes mellitus, type II Status: Chronic History of Present Illness Date of Admission: 08/27/18 Chief Complaint: Shortness of breath, wheezing The patient is a 78 year old M H as below who started becoming short of breath and having wheezing for about 4-5 days ago. He was planning on seeing his doctor or going to an urgent care tomorrow however he was unable to make it. He becomes very short of breath with ambulation. He has been using his inhalers for his COPD appropriately but he has continued to get worse. Of note he does have sick contacts at home with viral syndrome, and in the ER his influenza will came back negative. In the ER on ambulation on room air he was found to be hypoxic down to 86% and is currently on 2 L nasal cannula oxygenating fairly well. He denies any chest pain, or syncope. Past Medical History Past Medical History (Chronic Problems): Chronic Problems (Last Reviewed 01/24/18 @ 10:06 by Yesika Medina) COPD with exacerbation (Chronic) Stented coronary artery (Chronic) 08/02/17: BEATRIZ to mid LAD, mid DX 1, and ostial DX1 per Dr. Caldwell @ [facility] MONI (obstructive sleep apnea) (Chronic) Emphysema lung (Chronic) Hypothyroidism (Chronic) Snoring (Chronic) Diabetes mellitus, type II (Chronic) Venous insufficiency (chronic) (peripheral) (Chronic) Hyperlipidemia (Chronic) COPD (chronic obstructive pulmonary disease) (Chronic) Pulmonary nodules (Chronic) per chest CT 06/25/2016 Tobacco use disorder (Chronic) Sinus bradycardia (Chronic) Atherosclerotic heart disease of [place] coronary artery with other forms of angina pectoris (Chronic) 08/02/17: BEATRIZ to mid LAD, mid DX 1, and ostial DX1 per Dr. Caldwell @ [facility]. 06/29/[address] [facility] [address] Rico Bach: 60% stenosis LAD, no obstructive CAD History of left heart catheterization (Chronic) 06/29/[address] [facility] [address] Rico Bach: 60% stenosis LAD, no obstructive CAD Medical History: Medical History (Last Reviewed 01/24/18 @ 10:06 by Yesika Medina) Pneumonia (Acute) J18.9 Emphysema lung (Chronic) J43.9 Acute bronchitis (Acute) J20.9 Carotid stenosis, right (Acute) I65.21 Chest pain (Acute) R07.9 Hypothyroidism (Chronic) E03.9 Snoring (Chronic) R06.83 Diabetes mellitus, type II (Chronic) E11.9 Venous insufficiency (chronic) (peripheral) (Chronic) I87.2 Hyperlipidemia (Chronic) E78.5 COPD (chronic obstructive pulmonary disease) (Chronic) J44.9 Pulmonary nodules (Chronic) R91.[address] 06/25/2016 Tobacco use disorder (Chronic) F17.200 Sinus bradycardia (Chronic) R00.1 Atherosclerotic heart disease of [place] coronary artery with other forms of angina pectoris (Chronic) I25.118 08/02/17: BEATRIZ to mid LAD, mid DX 1, and ostial DX1 per Dr. Caldwell @ [facility]. 06/29/[address] [facility] [address] Rico Bach: 60% stenosis LAD, no obstructive CAD Allergies No Known Allergies Allergy (Verified 08/27/18 13:05) Home Medications: Ambulatory Orders Medication Instructions Recorded albuterol sulfate 2.5 mg/3 mL 2.5 mg INHALATION BID ml 06/24/17 (0.083 %) solution for nebulization aspirin 81 mg tablet,delayed 81 mg PO QDAY 06/24/17 release budesonide-formoterol HFA 160 2 puff INHALATION Q12H 06/24/17 mcg-4.5 mcg/actuation aerosol inhaler cyanocobalamin (vit B-12) 1,000 1,000 mcg PO QDAY 06/24/17 mcg tablet levothyroxine 150 mcg capsule 150 mcg PO QDAY cap 06/24/17 lorazepam 0.5 mg tablet 0.5 mg PO QDAY PRN tab 06/24/17 paroxetine 20 mg tablet 20 mg PO QDAY 06/24/17 thiamine HCl (vitamin B1) 100 mg 50 mg PO QDAY tab 06/24/17 tablet atorvastatin 80 mg tablet 80 mg PO QDAY 06/28/17 metformin 500 mg tablet 500 mg PO DAILY tab 07/26/17 Clopidogrel Bisulfate [Clopidogrel] 75 mg PO DAILY 08/01/17 glimepiride 1 mg tablet 1 mg PO QAM 08/04/17 Isosorbide Mononitrate [Isosorbide 60 mg PO BID 11/02/17 Mononitrate ER] Lisinopril 20 mg PO QDAY 11/02/17 Omeprazole 40 mg PO QDAY 11/02/17 Surgical History: Surgical History (Last Reviewed 01/24/18 @ 10:06 by Yesika Medina) Stented coronary artery (Chronic) Z95.5 08/02/17: BEATRIZ to mid LAD, mid DX 1, and ostial DX1 per Dr. Caldwell @ [facility] History of colonoscopy (Acute) Z98.890 History of esophagogastroduodenoscopy (Acute) Z98.890 2017 History of left heart catheterization (Chronic) Z98.890 06/29/[address] [facility] [address] Rico Bach: 60% stenosis LAD, no obstructive CAD History of right-sided carotid endarterectomy Onset Date: ~11/02/17 Z98.890 Surgical History: angioplasty - With cardiac stent, - - Previous heart catheterization Previous upper and lower endoscopy Lives: Alone Smoking Status: Current every day smoker Tobacco Use: Cigarettes Alcohol: None Drugs: None - *Family History Maternal Family History: Family History (Last Reviewed 01/24/18 @ 10:06 by Yesika Medina) Father Myocardial infarction CAD (coronary artery disease) Sudden cardiac Mother Congestive heart failure Sister No problems noted. Review of Systems Constitutional: Denies: Chills, Fever, Weight Change HEENT: Denies: Head Aches, Nasal Congestion, Sinus Congestion, Sinus Drainage Cardiovascular: Denies: Chest Pain, Palpitations Respiratory: Reports: Shortness of Breath, Shortness of breath upon exertion. Denies: Cough, Shortness of breath at rest, Sputum production Gastrointestinal: Denies: Abdominal Pain, Nausea, Vomiting Genitourinary: Denies: Dysuria Musculoskeletal: Denies: Joint Pain, Joint Tenderness Skin: Denies: Rash, Wounds Neurological: Denies: Numbness, Tingling, Focal weakness Psychiatric: Denies: Anxiety, Depression Hematologic/ Lymphatic: Denies: Easy Bruising, Easy Bleeding VTE Information - Inpt Only VTE Present on Admission: No Patient Problems: Active and Suspected Problems (Last Reviewed 01/24/18 @ 10:06 by Yesika Medina) Viral URI with cough (Acute) Acute respiratory failure with hypoxia (Acute) - Physical Exam General: Alert, Oriented x3, Cooperative, No apparent distress HEENT: Atraumatic, PERRLA, EOMI, Normocephalic Oral: Dry Mucosa Neck: Supple, No JVD, Trachea Midline Lungs: Diminished, Wheezes Cardiovascular: Regular rate, Regular Rhythm, Normal S1, Normal S2, No murmurs Abdomen: Soft, Non Tender, Non-Distended, No Hepato-splenomegaly Extremities: No edema, Capillary Refill Less than 3 Seconds Skin: No rashes, No breakdown Neurological: Neuro grossly intact, Sensory exam intact to light touch and pain Psych/Mental Status: Normal Affect, Appropriate Vital Signs Temp Pulse Resp BP Pulse Ox 102.2 F H 102 H 28 H 182/84 H 96 08/27/18 14:11 08/27/18 16:04 08/27/18 16:04 08/27/18 16:04 08/27/18 16:04 Oxygen Flow Rate (L/min) 2 Oxygen Delivery Method Nasal Cannula Weight: 188 lb 0.869 oz Body Mass Index (BMI) 25.4 Finger Stick Blood Glucose 148 Microbiology Past 72 Hours 08/27/18 14:30 Influenza Types A,B Direct FA (JULIA) - Final Mucosa - Nose Laboratory Tests Past 24 Hrs 08/27/18 08/27/18 08/27/18 13:42 13:42 13:42 WBC 6.4 RBC 4.39 L Hgb 12.5 L Hct 40.2 MCV 91.6 MCH 28.5 MCHC 31.1 L RDW 13.6 RDW Differential 45.3 H Plt Count 176 MPV 10.3 Immature Gran % (Auto) 0.300 Neut % (Auto) 81.0 H Lymph % (Auto) 6.9 L [place] % (Auto) 11.0 H Eos % (Auto) 0.5 Baso % (Auto) 0.3 Absolute Neuts (auto) 5.2 Absolute Lymphs (auto) 0.44 L Total Counted Not Reportable Differential Comment SCANNED PT 13.1 INR 1.0 APTT 34.9 Sodium 134 L Potassium 4.6 Chloride 101 Carbon Dioxide 27.0 Anion Gap 6 BUN 17 Creatinine 1.12 Estim Creat Clear Calc 59.66 Est GFR (MDRD) Af Amer 82 Est GFR (MDRD) Non-Af 67 BUN/Creatinine Ratio 15.2 Glucose 209 H Lactic Acid Calcium 8.8 Total Bilirubin 0.60 AST 22 ALT 25 Alkaline Phosphatase 104 Troponin I < 0.015 Total Protein 7.7 Albumin 3.4 Globulin 4.3 H Albumin/Globulin Ratio 0.8 L 08/27/18 13:42 WBC RBC Hgb Hct MCV MCH MCHC RDW RDW Differential Plt Count MPV Immature Gran % (Auto) Neut % (Auto) Lymph % (Auto) [place] % (Auto) Eos % (Auto) Baso % (Auto) Absolute Neuts (auto) Absolute Lymphs (auto) Total Counted Differential Comment PT INR APTT Sodium Potassium Chloride Carbon Dioxide Anion Gap BUN Creatinine Estim Creat Clear Calc Est GFR (MDRD) Af Amer Est GFR (MDRD) Non-Af BUN/Creatinine Ratio Glucose Lactic Acid 1.5 Calcium Total Bilirubin AST ALT Alkaline Phosphatase Troponin I Total Protein Albumin Globulin Albumin/Globulin Ratio Assessment/Plan All Active Problems (Last Reviewed 01/24/18 @ 10:06 by Yesika Medina) Viral URI with cough (Acute) Acute respiratory failure with hypoxia (Acute) Pneumonia (Acute) Acute bronchitis (Acute) Esophageal dysphagia (Acute) Carotid stenosis, right (Acute) History of colonoscopy (Acute) History of esophagogastroduodenoscopy (Acute) Chest pain (Acute) 1. Acute hypoxic respiratory failure secondary to a COPD exacerbation -Received Solu-Medrol in the ER and will continue with 40 mg 3 times daily IV -DuoNeb q. 4 while awake -Continue with his home inhalers as well -Flu swab is negative 2. CAD status post stent/HTN/HLD -Denies any chest pain, troponin was negative -We will continue with his aspirin, Plavix, Lipitor, isosorbide mononitrate, lisinopril 3. Hypothyroidism -Stable -Continue with Synthroid 4. DM 2 - stable as an outpatient, he is on glimepiride and metformin which will be held -Will start him on Levemir 5 units at night, and sliding scale insulin since he is on steroids 5. GERD -Per report has history of dysplasia, is on a PPI -We will continue home medications 6. Depression -Stable -Continue with Paxil DVT: Lovenox Code Visit Inpatient E&M: 86090 Init Hosp L3
[2018-08-27 18:21] LABS: Bedside Glucose 214 mg/dL (70-110)
[2018-08-27 20:46] LABS: Base Excess -2 mmol/L (-2 to +2); Bicarbonate 23.1 mmol/L (22-26); Blood Gas Specimen Type ART; O2 Delivery Device Nasal Can; PO2 82 mmHG (75-100); SITE R Radial; SO2 96 % (95-99); Time Given 1644; Total Carbon Dioxide 24 mmol/L; pCO2 39.3 mmHg (35-45); pH 7.38 (7.35-7.45)
[2018-08-27] MEDS: 0.9% NaCl Peripheral Flush Adult/Peds IV (22:11)
[2018-08-27] MEDS: Isosorbide Mononitrate 30 MG Tablet PO (22:11)
[2018-08-27] MEDS: Insulin NPH Human 100 UNITS/ML PEN SC (22:11)
[2018-08-27] MEDS: Lisinopril 20 MG Tablet 10 MG PO (22:11)
[2018-08-27] MEDS: Insulin Lispro 100 UNIT/ML INSULN.PEN SQ (22:19)
[2018-08-27 22:41] LABS: Bedside Glucose 410 mg/dL (70-110)
[2018-08-27 22:41] LABS: Bacteria 0 SEEN /hpf (None Seen); Mucous, Urine 0 SEEN /hpf (<or=2+); White Blood Cells 0 SEEN /hpf (0-5)
[2018-08-27 22:43] LABS: Color, Urine Straw (Yellow); Glucose, Dipstick 1000 mg/dl (Normal); Ketone-Dipstick Negative (Negative); Leukocyte Esterase-Dipstick Negative /ul (Negative); Nitrite-Dipstick Negative (Negative); Occult Blood-Urine 25 /ul (Negative); Protein-Dipstick 15 mg/dl (Negative); Urine Bilirubin Dipstick Negative (Negative); Urine Clarity Clear (Clear); Urine Urobilinogen Normal (Normal)
[2018-08-27 22:49] LABS: Red Blood Cells-Urine 0-5 SEEN /hpf (0-5); Squamous Epithelial Cells - UA 0-5 SEEN /hpf (0-5)
[2018-08-28] VITALS (12 sets, daily range): BP systolic 133–167; BP diastolic 72–83; PULSE 57–95; RESP 16–20; TEMP 36.4–36.8; O2SAT 93–99
[2018-08-28] MEDS: Levothyroxine 150 MCG Tablet PO (06:15)
[2018-08-28] MEDS: 0.9% NaCl Peripheral Flush Adult/Peds IV ×2 (06:15→23:03)
[2018-08-28 06:16] LABS: Anion Gap 4 (5-15); BUN 20 mg/dL (7-18); BUN/Creat Ratio 20.4 RATIO (10-20); Calcium,Total 8.8 mg/dL (8.5-10.1); Chloride 104 mmol/L (98-107); Creatinine, Serum 0.98 mg/dL (0.70-1.30); EST Glomerular Filtration Rate 79 mL/min (>60); Est Glom Filt Rate - Afr Amer 95 mL/min (>60); Estimated Creatinine Clearance 68.19 ml/min; Glucose 250 mg/dL (74-106); Potassium 4.8 mmol/L (3.5-5.1); Sodium Level 137 mmol/L (136-145)
[2018-08-28 06:20] LABS: Absolute Neutrophil Count 6.1 X10^3/uL (2.0-7.7); Basophil# 0.01 X10^3/uL; Basophil% 0.1 % (0-1); Hematocrit 40.8 % (40-54); Lymphocyte % 7.3 % (19-41); Mean Corp Hgb Conc 31.9 g/gl (32-36); Mean Corpuscular Hgb 29.4 pg (27.0-32.0); Mean Corpuscular Volume 92.3 fL (80-94); Mean Platelet Vol. 10.3 fl (6.2-12.0); Monocyte# 0.23 X10^3/uL; Monocyte% 3.4 % (0-10); Neutrophil # 6.11 X10^3/uL (2.7-7.7); Neutrophil % 89.1 % (47-70); Platelet Count 189 K/mm3 (150-450); RBC Distribution Width CV 13.3 % (11.6-14.6); RBC Distribution Width SD 43.9 fl (35.1-43.9); Red Blood Count 4.42 M/mm3 (4.6-6.2); White Blood Count 6.9 K/mm3 (4.4-11.0)
[2018-08-28 06:42] LABS: Differential Indicated SCAN CRITERIA MET; POSITIVE COUNT NO; POSITIVE DIFFERENTIAL YES; POSITIVE MORPHOLOGY NO
[2018-08-28 06:51] LABS: Bedside Glucose 216 mg/dL (70-110)
[2018-08-28] MEDS: Ipratropium/Albuterol Sulfate 3 ML AMPUL.NEB INHALATION ×4 (07:01→18:48)
[2018-08-28 07:06] LABS: Differential Comment SCANNED
[2018-08-28] MEDS: Insulin Lispro 100 UNIT/ML INSULN.PEN SQ ×4 (08:26→23:03)
[2018-08-28] MEDS: Paroxetine 20 MG Tablet PO (08:27)
[2018-08-28] MEDS: Aspirin E.C. 81 MG Tablet PO (08:27)
[2018-08-28] MEDS: Isosorbide Mononitrate 30 MG Tablet PO ×2 (08:27→23:04)
[2018-08-28] MEDS: Enoxaparin 40 MG/0.4 ML Syringe SC (08:27)
[2018-08-28] MEDS: Lisinopril 20 MG Tablet 10 MG PO ×2 (08:27→23:04)
[2018-08-28] MEDS: Clopidogrel Bisulfate 75 MG Tablet PO (08:27)
[2018-08-28] MEDS: Pantoprazole Sodium 20 MG Tablet PO (08:27)
--- NOTE | 2018-08-28 11:10 | CASEMGMT ---
This RN CM to room to complete CM assessment and pt is on phone at this time. Will attempt again later. SStyazmin PALUMBO CM
--- NOTE | 2018-08-28 11:18 | PCM.PN.HOSP ---
Patient Problems: Active and Suspected Problems (Last Reviewed 01/24/18 @ 10:06 by Yesika Medina) Viral URI with cough (Acute) Acute respiratory failure with hypoxia (Acute) Subjective: Patient has cough and chest congestion. Shortness of breath is much improved. Patient has long history of smoking cigarettes and has cut down from 4 packs daily to half pack now. PCP takes care of COPD. Vitals/I&O's: Vital Signs Temp Pulse Resp BP Pulse Ox 97.7 F L 75 20 H 133/72 H 93 08/28/18 09:54 08/28/18 11:10 08/28/18 09:54 08/28/18 09:54 08/28/18 09:54 Oxygen Flow Rate (L/min) 1 Oxygen Delivery Method Room Air Weight: 182 lb 1.629 oz Body Mass Index (BMI) 24.7 Finger Stick Blood Glucose 148 Intake and Output for Last 24 Hours 08/26/18 08/27/18 08/28/18 23:59 23:59 23:59 Intake Total 240 / 240 270 / 270 Balance 240 / 240 270 / 270 General: Alert, Oriented x3, Cooperative HEENT: Atraumatic, PERRLA, EOMI, Normocephalic Neck: Supple, No JVD, Negative Carotid Bruits Lungs: Diminished, Rhonchi, Short of Breath, Wheezes Cardiovascular: Regular rate, Regular Rhythm, Normal S1, Normal S2, No murmurs Abdomen: Bowel Sounds Present, Soft, Non Tender, Non-Distended Extremities: No edema, Capillary Refill Less than 3 Seconds Skin: No rashes, No breakdown Musculoskeletal: No Tenderness to Palpation of Joints or Extremities, Arthritic Changes, Muscle Wasting Neurological: Cranial nerves II-XII grossly intact Psych/Mental Status: Normal Affect, Appropriate Microbiology Past 72 Hours 08/27/18 14:30 Mucosa - Nose Influenza Types A,B Direct FA (JULIA) - Final Laboratory Results 08/27/18 13:42: WBC 6.4, RBC 4.39 L, Hgb 12.5 L, Hct 40.2, MCV 91.6, MCH 28.5, MCHC 31.1 L, RDW 13.6, RDW Differential 45.3 H, Plt Count 176, MPV 10.3, Immature Gran % (Auto) 0.300, Neut % (Auto) 81.0 H, Lymph % (Auto) 6.9 L, [place] % (Auto) 11.0 H, Eos % (Auto) 0.5, Baso % (Auto) 0.3, Absolute Neuts (auto) 5.2, Absolute Lymphs (auto) 0.44 L, Total Counted Not Reportable, Differential Comment SCANNED 08/27/18 13:42: PT 13.1, INR 1.0, APTT 34.9 08/27/18 13:42: Sodium 134 L, Potassium 4.6, Chloride 101, Carbon Dioxide 27.0, Anion Gap 6, BUN 17, Creatinine 1.12, Estim Creat Clear Calc 59.66, Est GFR (MDRD) Af Amer 82, Est GFR (MDRD) Non-Af 67, BUN/Creatinine Ratio 15.2, Glucose 209 H, Calcium 8.8, Total Bilirubin 0.60, AST 22, ALT 25, Alkaline Phosphatase 104, Troponin I < 0.015, Total Protein 7.7, Albumin 3.4, Globulin 4.3 H, Albumin/Globulin Ratio 0.8 L 08/27/18 13:42: Lactic Acid 1.5 08/27/18 16:46: Specimen Type ART, Sample Site R Radial, pH 7.38, Bicarbonate Actual 23.1, POC Total CO2 24, Base Excess -2, O2 Saturation 96, ABG pCO2 39.3, ABG pO2 82, [place] Test NA, O2 Delivery Device Nasal Can, Liter Flow 2.0, Blood Gas Notified Whom ED MD, Blood Gas Notified Time 1644 08/27/18 17:58: POC Glucose 214 H 08/27/18 22:10: POC Glucose 410 H 08/27/18 22:30: Urine Color Straw, Urine Clarity Clear, Urine pH 6.0, Ur Specific [place] 1.010, Urine Protein 15 H, Urine Glucose (UA) 1000 H, Urine Ketones Negative, Urine Occult Blood 25 H, Urine Nitrite Negative, Urine Bilirubin Negative, Urine Urobilinogen Normal, Ur Leukocyte Esterase Negative, Urine RBC 0-5 SEEN, Urine WBC 0 SEEN, Ur Squamous Epith Cells 0-5 SEEN, Urine Bacteria 0 SEEN, Urine Mucus 0 SEEN 08/28/18 05:30: WBC 6.9, RBC 4.42 L, Hgb 13.0, Hct 40.8, MCV 92.3, MCH 29.4, MCHC 31.9 L, RDW 13.3, RDW Differential 43.9, Plt Count 189, MPV 10.3, Immature Gran % (Auto) 0.100, Neut % (Auto) 89.1 H, Lymph % (Auto) 7.3 L, [place] % (Auto) 3.4, Eos % (Auto) 0.0, Baso % (Auto) 0.1, Absolute Neuts (auto) 6.1, Absolute Lymphs (auto) 0.50 L, Total Counted Not Reportable, Differential Comment SCANNED 08/28/18 05:30: Sodium 137, Potassium 4.8, Chloride 104, Carbon Dioxide 29.0, Anion Gap 4 L, BUN 20 H, Creatinine 0.98, Estim Creat Clear Calc 68.19, Est GFR (MDRD) Af Amer 95, Est GFR (MDRD) Non-Af 79, BUN/Creatinine Ratio 20.4 H, Glucose 250 H, Calcium 8.8 08/28/18 06:20: POC Glucose 216 H Current Medications Albuterol/Ipratropium (Duoneb) 3 ml INHALATION Q4HWA.RT [facility] Last Admin: 08/28/18 07:01 Dose: 3 [facility] Admin: 08/28/18 08:27 Dose: 81 mg Atorvastatin Calcium (Lipitor) 80 mg PO QHS [facility] Last Admin: 08/27/18 22:12 Dose: Not Given Clopidogrel Bisulfate (Plavix) 75 mg PO DAILY [facility] Last Admin: 08/28/18 08:27 Dose: 75 mg Dextrose (D50w Syringe) 0 gm IV X1 PRN; Protocol PRN Reason: Hypoglycemia Enoxaparin Sodium (Lovenox) 40 mg SC DAILY@1000 [facility] Last Admin: 08/28/18 08:27 Dose: 40 mg Glucagon () 1 mg IM .X1 PRN PRN Reason: Hypoglycemia Guaifenesin (Mucinex) 1,200 mg PO BID [facility] Insulin Human Lispro (Humalog Kwikpen (Bkc)) 0 unit SQ ACHS [facility]; Protocol Last Admin: 08/28/18 08:26 Dose: 4 units Insulin Human NPH (Humulin N (Bkc)) 5 units SC QHS [facility] Last Admin: 08/27/18 22:11 Dose: 5 unit Isosorbide Mononitrate (Imdur) 30 mg PO BID [facility] Last Admin: 08/28/18 08:27 Dose: 30 mg Levothyroxine Sodium (Synthroid) 150 mcg PO DAILY@0600 [facility] Last Admin: 08/28/18 06:15 Dose: 150 mcg Lisinopril (Zestril) 10 mg PO BID [facility] Last Admin: 08/28/18 08:27 Dose: 10 mg Lorazepam (Ativan) 0.5 mg PO DAILY PRN PRN PRN Reason: anxiety Magnesium Hydroxide (Milk Of Magnesia) 30 ml PO DAILY PRN PRN PRN Reason: Constipation Methylprednisolone (Solu-Medrol) 40 mg IV Q8 [facility] Last Admin: 08/28/18 06:15 Dose: 40 mg Pantoprazole Sodium (Protonix) 20 mg PO DAILY [facility] Last Admin: 08/28/18 08:27 Dose: 20 mg Paroxetine HCl (Paxil) 20 mg PO DAILY [facility] Last Admin: 08/28/18 08:27 Dose: 20 mg Sodium Chloride () 5 - 15 ml IV UD PRN PRN Reason: SALINE FLUSH Last Admin: 08/28/18 06:15 Dose: 10 ml Medical Necessity - Tobacco Use Smoking Status: Current every day smoker Tobacco Use: Cigarettes Assessment/Plan All Active Problems (Last Reviewed 01/24/18 @ 10:06 by Yesika Medina) Viral URI with cough (Acute) Acute respiratory failure with hypoxia (Acute) Pneumonia (Acute) Acute bronchitis (Acute) Esophageal dysphagia (Acute) Carotid stenosis, right (Acute) History of colonoscopy (Acute) History of esophagogastroduodenoscopy (Acute) Chest pain (Acute) The patient is a 78 year old M with history of COPD, obstructive sleep apnea and coronary artery status post stents was admitted with shortness of breath and wheezing for about 5 days. Patient was also found tachypneic and hypoxic in ER, pulse ox 86% on room air. Denies chest pain or syncope but has chest congestion, cough and brings up phlegm. 1. Acute hypoxic respiratory failure secondary to COPD exacerbation: Patient was on 2 L of oxygen. It is resolved. Currently pulse ox is 93% on room air. 2. COPD exacerbation with history of chronic active smoker: On DuoNeb nebulization, IV Solu-Medrol, Mucinex, incentive spirometry and chest physiotherapy. Respiratory panel is ordered. Blood cultures x2 and urine culture is pending. 3. CAD status post stent/HTN/HLD -Denies any chest pain, troponin was negative continue with his aspirin, Plavix, Lipitor, isosorbide mononitrate, lisinopril Hypothyroidism -Stable -Continue with Synthroid 4. DM 2 - stable as an outpatient, he is on glimepiride and metformin which are being held. Glucose is 250. -Increase Levemir to 10 units twice daily while he is on Solu-Medrol. Continue short-acting sliding scale insulin since he is on steroids 5. Esophageal dysplasia with GERD on a PPI -continue home medications 6. Depression -Stable -Continue with Paxil DVT: Lovenox 40 mg subcu daily Code Visit Inpatient E&M: 90678 Subs Hosp L2
--- NOTE | 2018-08-28 11:22 | PN_ITS ---
Patient Problems: Active and Suspected Problems (Last Reviewed 01/24/18 @ 10:06 by Yesika Medina) Viral URI with cough (Acute) Acute respiratory failure with hypoxia (Acute) Subjective: Patient has cough and chest congestion. Shortness of breath is much improved. Patient has long history of smoking cigarettes and has cut down from 4 packs daily to half pack now. PCP takes care of COPD. Vitals/I&O's: Vital Signs Temp Pulse Resp BP Pulse Ox 97.7 F L 75 20 H 133/72 H 93 08/28/18 09:54 08/28/18 11:10 08/28/18 09:54 08/28/18 09:54 08/28/18 09:54 Oxygen Flow Rate (L/min) 1 Oxygen Delivery Method Room Air Weight: 182 lb 1.629 oz Body Mass Index (BMI) 24.7 Finger Stick Blood Glucose 148 Intake and Output for Last 24 Hours 08/26/18 08/27/18 08/28/18 23:59 23:59 23:59 Intake Total 240 / 240 270 / 270 Balance 240 / 240 270 / 270 General: Alert, Oriented x3, Cooperative HEENT: Atraumatic, PERRLA, EOMI, Normocephalic Neck: Supple, No JVD, Negative Carotid Bruits Lungs: Diminished, Rhonchi, Short of Breath, Wheezes Cardiovascular: Regular rate, Regular Rhythm, Normal S1, Normal S2, No murmurs Abdomen: Bowel Sounds Present, Soft, Non Tender, Non-Distended Extremities: No edema, Capillary Refill Less than 3 Seconds Skin: No rashes, No breakdown Musculoskeletal: No Tenderness to Palpation of Joints or Extremities, Arthritic Changes, Muscle Wasting Neurological: Cranial nerves II-XII grossly intact Psych/Mental Status: Normal Affect, Appropriate Microbiology Past 72 Hours 08/27/18 14:30 Mucosa - Nose Influenza Types A,B Direct FA (JULIA) - Final Laboratory Results 08/27/18 13:42: WBC 6.4, RBC 4.39 L, Hgb 12.5 L, Hct 40.2, MCV 91.6, MCH 28.5, MCHC 31.1 L, RDW 13.6, RDW Differential 45.3 H, Plt Count 176, MPV 10.3, Immature Gran % (Auto) 0.300, Neut % (Auto) 81.0 H, Lymph % (Auto) 6.9 L, Daniels % (Auto) 11.0 H, Eos % (Auto) 0.5, Baso % (Auto) 0.3, Absolute Neuts (auto) 5.2, Absolute Lymphs (auto) 0.44 L, Total Counted Not Reportable, Differential Comment SCANNED 08/27/18 13:42: PT 13.1, INR 1.0, APTT 34.9 08/27/18 13:42: Sodium 134 L, Potassium 4.6, Chloride 101, Carbon Dioxide 27.0, Anion Gap 6, BUN 17, Creatinine 1.12, Estim Creat Clear Calc 59.66, Est GFR (MDRD) Af Amer 82, Est GFR (MDRD) Non-Af 67, BUN/Creatinine Ratio 15.2, Glucose 209 H, Calcium 8.8, Total Bilirubin 0.60, AST 22, ALT 25, Alkaline Phosphatase 104, Troponin I < 0.015, Total Protein 7.7, Albumin 3.4, Globulin 4.3 H, Albumin/Globulin Ratio 0.8 L 08/27/18 13:42: Lactic Acid 1.5 08/27/18 16:46: Specimen Type ART, Sample Site R Radial, pH 7.38, Bicarbonate Actual 23.1, POC Total CO2 24, Base Excess -2, O2 Saturation 96, ABG pCO2 39.3, ABG pO2 82, [place] Test NA, O2 Delivery Device Nasal Can, Liter Flow 2.0, Blood Gas Notified Whom ED MD, Blood Gas Notified Time 1644 08/27/18 17:58: POC Glucose 214 H 08/27/18 22:10: POC Glucose 410 H 08/27/18 22:30: Urine Color Straw, Urine Clarity Clear, Urine pH 6.0, Ur Speci fic [place] 1.010, Urine Protein 15 H, Urine Glucose (UA) 1000 H, Urine Ketones Negative, Urine Occult Blood 25 H, Urine Nitrite Negative, Urine Bilirubin Negative, Urine Urobilinogen Normal, Ur Leukocyte Esterase Negative, Urine RBC 0-5 SEEN, Urine WBC 0 SEEN, Ur Squamous Epith Cells 0-5 SEEN, Urine Bacteria 0 SEEN, Urine Mucus 0 SEEN 08/28/18 05:30: WBC 6.9, RBC 4.42 L, Hgb 13.0, Hct 40.8, MCV 92.3, MCH 29.4, MCHC 31.9 L, RDW 13.3, RDW Differential 43.9, Plt Count 189, MPV 10.3, Immature Gran % (Auto) 0.100, Neut % (Auto) 89.1 H, Lymph % (Auto) 7.3 L, Daniels % (Auto) 3.4, Eos % (Auto) 0.0, Baso % (Auto) 0.1, Absolute Neuts (auto) 6.1, Absolute Lymphs (auto) 0.50 L, Total Counted Not Reportable, Differential Comment SCANNED 08/28/18 05:30: Sodium 137, Potassium 4.8, Chloride 104, Carbon Dioxide 29.0, Anion Gap 4 L, BUN 20 H, Creatinine 0.98, Estim Creat Clear Calc 68.19, Est GFR (MDRD) Af Amer 95, Est GFR (MDRD) Non-Af 79, BUN/Creatinine Ratio 20.4 H, Glucose 250 H, Calcium 8.8 08/28/18 06:20: POC Glucose 216 H Current Medications Albuterol/Ipratropium (Duoneb) 3 ml INHALATION Q4HWA.RT [facility] Last Admin: 08/28/18 07:01 Dose: 3 ml [facility] Admin: 08/28/18 08:27 Dose: 81 mg Atorvastatin Calcium (Lipitor) 80 mg PO QHS [facility] Last Admin: 08/27/18 22:12 Dose: Not Given Clopidogrel Bisulfate (Plavix) 75 mg PO DAILY [facility] Last Admin: 08/28/18 08:27 Dose: 75 mg Dextrose (D50w Syringe) 0 gm IV X1 PRN; Protocol PRN Reason: Hypoglycemia Enoxaparin Sodium (Lovenox) 40 mg SC DAILY@1000 [facility] Last Admin: 08/28/18 08:27 Dose: 40 mg Glucagon () 1 mg IM .X1 PRN PRN Reason: Hypoglycemia Guaifenesin (Mucinex) 1,200 mg PO BID [facility] Insulin Human Lispro (Humalog Kwikpen (Bk)) 0 unit SQ ACHS [facility]; Protocol Last Admin: 08/28/18 08:26 Dose: 4 units Insulin Human NPH (Humulin N (Bkc)) 5 units SC QHS [facility] Last Admin: 08/27/18 22:11 Dose: 5 unit Isosorbide Mononitrate (Imdur) 30 mg PO BID [facility] Last Admin: 08/28/18 08:27 Dose: 30 mg Levothyroxine Sodium (Synthroid) 150 mcg PO DAILY@0600 [facility] Last Admin: 08/28/18 06:15 Dose: 150 mcg Lisinopril (Zestril) 10 mg PO BID [facility] Last Admin: 08/28/18 08:27 Dose: 10 mg Lorazepam (Ativan) 0.5 mg PO DAILY PRN PRN PRN Reason: anxiety Magnesium Hydroxide (Milk Of Magnesia) 30 ml PO DAILY PRN PRN PRN Reason: Constipation Methylprednisolone (Solu-Medrol) 40 mg IV Q8 [facility] Last Admin: 08/28/18 06:15 Dose: 40 mg Pantoprazole Sodium (Protonix) 20 mg PO DAILY [facility] Last Admin: 08/28/18 08:27 Dose: 20 mg Paroxetine HCl (Paxil) 20 mg PO DAILY [facility] Last Admin: 08/28/18 08:27 Dose: 20 mg Sodium Chloride () 5 - 15 ml IV UD PRN PRN Reason: SALINE FLUSH Last Admin: 08/28/18 06:15 Dose: 10 ml Medical Necessity - Tobacco Use Smoking Status: Current every day smoker Tobacco Use: Cigarettes Assessment/Plan All Active Problems (Last Reviewed 01/24/18 @ 10:06 by Yesika Medina) Viral URI with cough (Acute) Acute respiratory failure with hypoxia (Acute) Pneumonia (Acute) Acute bronchitis (Acute) Esophageal dysphagia (Acute) Carotid stenosis, right (Acute) History of colonoscopy (Acute) History of esophagogastroduodenoscopy (Acute) Chest pain (Acute) The patient is a 78 year old M with history of COPD, obstructive sleep apnea and coronary artery status post stents was admitted with shortness of breath and wheezing for about 5 days. Patient was also found tachypneic and hypoxic in ER, pulse ox 86% on room air. Denies chest pain or syncope but has chest congestion, cough and brings up phlegm. 1. Acute hypoxic respiratory failure secondary to COPD exacerbation: Patient was on 2 L of oxygen. It is resolved. Currently pulse ox is 93% on room air. 2. COPD exacerbation with history of chronic active smoker: On DuoNeb nebulization, IV Solu-Medrol, Mucinex, incentive spirometry and chest physiotherapy. Respiratory panel is ordered. Blood cultures x2 and urine culture is pending. 3. CAD status post stent/HTN/HLD -Denies any chest pain, troponin was negative continue with his aspirin, Plavix, Lipitor, isosorbide mononitrate, lisinopril Hypothyroidism -Stable -Continue with Synthroid 4. DM 2 - stable as an outpatient, he is on glimepiride and metformin which are being held. Glucose is 250. -Increase Levemir to 10 units twice daily while he is on Solu-Medrol. Continue short-acting sliding scale insulin since he is on steroids 5. Esophageal dysplasia with GERD on a PPI -continue home medications 6. Depression -Stable -Continue with Paxil DVT: Lovenox 40 mg subcu daily Code Visit Inpatient E&M: 51256 Subs Hosp L2
--- NOTE | 2018-08-28 12:12 | CASEMGMT ---
DEEPALI BARONE assessment: Face to Face with patient for initial transition planning/care coordination assessment. DEEPALI BARONE introduced self and role at [facility], pt voices understanding and consents to assessment at this time. Pt is sitting up in chair in no distress at this time. Pt is A/Ox4 at this time and answers all questions appropriately at this time. Care providers, pharmacy, and demographics verified at this time. PCP: Dorothea MAZARIEGOS Specialists: Pt states currently has no specialists. [facility]erred [facility]acy[facility] Insurance: [employer] Prescription Benefit: [employer] Living Will/HPOA: Pt states that he believes that he has a LW/HPOA but is unsure where paperwork is at this time. Pt states , Halina Sanchez, is HPOA. LNOK: Halina Sanchez, ; Emani Urena, daughter Living Arrangements: Pt states lives with and daughter on main level of multilevel home and states no concerns at home at this time. Pt states is independent with ADL's. Transportation: Pt states drives self and states no transportation concerns at this time. DME/HHC: Pt states had the following DME but does not currently use any: walker, cane, w/c, shower chair, and grab bars. Pt states does have a CPAP that was set up through [employer] but pt states never f/u with [facility]. Pt states does use the CPAP and has everything that he needs for it at this time. Pt states no hx of HHC or SNF in the past. Pt is currently on room air at this time. Pt states no concerns with going home at time of discharge. Pt states is retired. Pt states does smoke 1 pack/day but does not drink ETOH. Pt states no further concerns/needs at this time. CM to follow for any further discharge planning/needs. Advised pt to ask for CM if any further questions/concerns/needs arise, voices understanding. Pt Goal: Home Plan: [place] DEEPALI BARONE
[2018-08-28 12:41] LABS: Bedside Glucose 283 mg/dL (70-110)
[2018-08-28 16:16] LABS: Bedside Glucose 349 mg/dL (70-110)
[2018-08-28] MEDS: guaiFENesin 1,200 MG Tablet 1200 MG PO (23:03)
[2018-08-28 23:20] LABS: Bedside Glucose 304 mg/dL (70-110)
[2018-08-29 01:59] VITALS: BP 144/82; PULSE 69; RESP 16; TEMP 36.5; O2SAT 93
[2018-08-29 06:39] VITALS: BP 134/67; PULSE 72; RESP 18; TEMP 37.2; O2SAT 92
[2018-08-29] MEDS: Levothyroxine 150 MCG Tablet PO (06:41)
[2018-08-29] MEDS: 0.9% NaCl Peripheral Flush Adult/Peds IV (06:41)
[2018-08-29 07:19] VITALS: PULSE 75; RESP 26
[2018-08-29] MEDS: Ipratropium/Albuterol Sulfate 3 ML AMPUL.NEB INHALATION (07:19)
[2018-08-29 07:41] LABS: Bedside Glucose 238 mg/dL (70-110)
--- NOTE | 2018-08-29 08:59 | DCINST_ITS ---
- Discharge Diagnoses Current Active Problems: Current Active and Chronic Problems (Last Reviewed 01/24/18 @ 10:06 by Yesika Medina) COPD with exacerbation (Chronic) Viral URI with cough (Acute) Acute respiratory failure with hypoxia (Acute) You will use the following diet at home:: Calorie/Carbohydrate Controlled (speci fy 1200, 1400, etc) - 1800 ADA diet Your food should be the consistency of: Regular Discharge Activity: May Not Drive Call your doctor if you observe: Fever of 101 or Higher, Shortness of breath, Swelling in the ankles, Chest pain, Increased palpitations (irregular heartbeat), Calf discomfort Allergies/Adverse Reactions: Allergies No Known Allergies Allergy (Verified 08/27/18 13:05) Medications to take at Discharge albuterol sulfate 2.5 mg/3 mL (0.083 %) solution for nebulization 2.5 mg INHALATION BID ml 06/24/17 aspirin 81 mg tablet,delayed release 81 mg PO QDAY 06/24/17 budesonide-formoterol HFA 160 mcg-4.5 mcg/actuation aerosol inhaler 2 puff INHALATION Q12H 06/24/17 cyanocobalamin (vit B-12) 1,000 mcg tablet 1,000 mcg PO QDAY 06/24/17 levothyroxine 150 mcg capsule 150 mcg PO QDAY cap 06/24/17 lorazepam 0.5 mg tablet 0.5 mg PO DAILY PRN PRN tab 06/24/17 paroxetine 20 mg tablet 20 mg PO QDAY 06/24/17 thiamine HCl (vitamin B1) 100 mg tablet 50 mg PO QDAY tab 06/24/17 atorvastatin 80 mg tablet 80 mg PO QDAY 06/28/17 metformin 500 mg tablet 500 mg PO DAILY tab 07/26/17 Clopidogrel Bisulfate [Clopidogrel] 75 mg PO DAILY 08/01/17 Isosorbide Mononitrate [Isosorbide Mononitrate ER] 30 mg PO BID 11/02/17 Lisinopril 10 mg PO BID 11/02/17 Omeprazole 20 mg PO QDAY 11/02/17 Glimepiride [Amaryl] 2 mg PO DAILY #30 tablet 08/29/18 Prednisone 10 mg PO UD #30 tab 08/29/18 The following prescriptions were given: Glimepiride [Amaryl] 2 mg PO DAILY #30 tablet Prednisone 10 mg PO UD #30 tab Primary Care Physician: Xander Piedra III, MD [Primary Care Provider] - Please follow up with your Primary Care Physician in: in 2 weeks Test Results: Test results from this visit will be discussed in further detail at your follow- up appointment, if applicable.
--- NOTE | 2018-08-29 09:00 | DS.PCM_ITS ---
Discharge Date and Diagnosis Date of Admission: 08/27/18 Date of Discharge: 08/29/18 - Primary Discharge Diagnosis Active and Suspected Problems (Last Reviewed 01/24/18 @ 10:06 by Yesika Medina) Viral URI with cough (Acute) Acute respiratory failure with hypoxia (Acute) - Secondary Discharge Diagnosis Chronic Problems (Last Reviewed 01/24/18 @ 10:06 by Yesika Medina) COPD with exacerbation (Chronic) Stented coronary artery (Chronic) 08/02/17: BEATRIZ to mid LAD, mid DX 1, and ostial DX1 per Dr. Caldwell @ [facility] MONI (obstructive sleep apnea) (Chronic) Emphysema lung (Chronic) Hypothyroidism (Chronic) Snoring (Chronic) Diabetes mellitus, type II (Chronic) Venous insufficiency (chronic) (peripheral) (Chronic) Hyperlipidemia (Chronic) COPD (chronic obstructive pulmonary disease) (Chronic) Pulmonary nodules (Chronic) per chest CT 06/25/2016 Tobacco use disorder (Chronic) Sinus bradycardia (Chronic) Atherosclerotic heart disease of [place] coronary artery with other forms of angina pectoris (Chronic) 08/02/17: BEATRIZ to mid LAD, mid DX 1, and ostial DX1 per Dr. Caldwell @ [facility]. 06/29/[address] [facility] [address] Rico Bach: 60% stenosis LAD, no obstructive CAD History of left heart catheterization (Chronic) 06/29/[address] [facility] [address] Rico Bach: 60% stenosis LAD, no obstructive CAD Hospital Course and Treatment Operations: - - Right carotid endarterectomy Summary of Care Provided: [] The patient is a 78 year old M with history of COPD, obstructive sleep apnea and coronary artery status post stents was admitted with shortness of breath and wheezing for about 5 days. Patient was also found tachypneic and hypoxic in ER, pulse ox 86% on room air. Denies chest pain or syncope but has chest congestion, cough and brings up phlegm. 1. Acute hypoxic respiratory failure (respiratory distress, tachypnea and required 3 L of oxygen; especially patient was not on home oxygen) secondary to COPD exacerbation: Patient was on 2 L of oxygen. It is resolved. Currently pulse ox is 92% on room air. ABG was done and pH 7.38, PaO2 82%, PCO2 40 on 2 L of oxygen through nasal cannula with high AA gradient of 73.9 with expected AA gradient 18.9 of his age. 2. COPD exacerbation with history of chronic active smoker: On DuoNeb nebulization, IV Solu-Medrol, Mucinex, incentive spirometry and chest physiotherapy. Blood cultures x2 are pending but seems negative for about 48 hours. Urine culture shows no growth. Respiratory panel is negative. 3. CAD status post stent/HTN/HLD -Denies any chest pain, troponin was negative continue aspirin, Plavix, Lipitor, isosorbide mononitrate, lisinopril Hypothyroidism -Stable -Continue with Synthroid 4. DM 2 - stable as an outpatient, he is on glimepiride and metformin which are being held. Glucose is 250. -Increase Levemir to 10 units twice daily while he is on Solu-Medrol. Continue short-acting sliding scale insulin since he is on steroids 5. Esophageal dysplasia with GERD on a PPI -continue home medications 6. Depression -Stable -Continue with Paxil DVT: Lovenox 40 mg subcu daily Discharge medication reconciliation done. Discharge follow-up instructions completed. Discharge process discussed with the patient and all questions were answered to patient's satisfaction. Patient has Symbicort and albuterol inhaler at home. Glimepiride dose increased to 2 mg daily as patient has hyperglycemia secondary to steroid. Advised to cut down to 1 mg as per fasting glucose treated after prednisone taper is over. Patient follows COPD with his PCP. Total time spent, exact 35 minutes on discharge meds reconciliation, examination, review of imaging and blood test and discussion with the patient on follow-up instructions. Subjective: Patient is comfortable with no increased shortness of breath more than his baseline. Patient's gets dyspnea on moderate exertion. Still has wheezing and chest congestion. - Physical Exam General: Alert, Oriented x3, Cooperative HEENT: Atraumatic, PERRLA, EOMI, Normocephalic Neck: Supple, No JVD, Negative Carotid Bruits Lungs: Clear to auscultation, Diminished, Rhonchi, Wheezes Cardiovascular: Regular rate, Regular Rhythm, Normal S1, Normal S2, No murmurs Abdomen: Bowel Sounds Present, Soft, Non Tender, Non-Distended Extremities: No edema, Capillary Refill Less than 3 Seconds Skin: No rashes, No breakdown Musculoskeletal: No Tenderness to Palpation of Joints or Extremities, Arthritic Changes Neurological: Cranial nerves II-XII grossly intact Psych/Mental Status: Normal Affect, Appropriate Vital Signs Temp Pulse Resp BP Pulse Ox 98.9 F 72 18 134/67 H 92 08/29/18 06:39 08/29/18 06:39 08/29/18 06:39 08/29/18 06:39 08/29/18 06:39 Oxygen Flow Rate (L/min) 1 Oxygen Delivery Method Room Air Weight: 182 lb 1.629 oz Body Mass Index (BMI) 24.7 Finger Stick Blood Glucose 148 Intake and Output for Last 24 Hours 08/27/18 08/28/18 08/29/18 23:59 23:59 23:59 Intake Total 240 / 240 1230 / 1230 200 / 200 Balance 240 / 240 1230 / 1230 200 / 200 Microbiology Past 72 Hours 08/28/18 11:30 Respiratory Panel (PCR) - Final Mucosa - Nasopharyngeal 08/27/18 14:30 Influenza Types A,B Direct FA (JULIA) - Final Mucosa - Nose POC Glucose 08/29/18 08/28/18 08/28/18 06:44 23:01 16:08 POC Glucose 238 H 304 H 349 H 08/28/18 12:33 POC Glucose 283 H Discharge Activity: May Not Drive Call your doctor if you observe: Fever of 101 or Higher, Shortness of breath, Swelling in the ankles, Chest pain, Increased palpitations (irregular heartbeat), Calf discomfort Home Medications: Medications to take at Discharge albuterol sulfate 2.5 mg/3 mL (0.083 %) solution for nebulization 2.5 mg INHALATION BID ml 06/24/17 aspirin 81 mg tablet,delayed release 81 mg PO QDAY 06/24/17 budesonide-formoterol HFA 160 mcg-4.5 mcg/actuation aerosol inhaler 2 puff INHALATION Q12H 06/24/17 cyanocobalamin (vit B-12) 1,000 mcg tablet 1,000 mcg PO QDAY 06/24/17 levothyroxine 150 mcg capsule 150 mcg PO QDAY cap 06/24/17 lorazepam 0.5 mg tablet 0.5 mg PO DAILY PRN PRN tab 06/24/17 paroxetine 20 mg tablet 20 mg PO QDAY 06/24/17 thiamine HCl (vitamin B1) 100 mg tablet 50 mg PO QDAY tab 06/24/17 atorvastatin 80 mg tablet 80 mg PO QDAY 06/28/17 metformin 500 mg tablet 500 mg PO DAILY tab 07/26/17 Clopidogrel Bisulfate [Clopidogrel] 75 mg PO DAILY 08/01/17 Isosorbide Mononitrate [Isosorbide Mononitrate ER] 30 mg PO BID 11/02/17 Lisinopril 10 mg PO BID 11/02/17 Omeprazole 20 mg PO QDAY 11/02/17 Glimepiride [Amaryl] 2 mg PO DAILY #30 tablet 08/29/18 Guaifenesin [Mucinex] 1,200 mg PO BID #14 tab.er.12h 08/29/18 Prednisone 10 mg PO UD #30 tab 08/29/18 Following Prescrptions Were Given to Patient: Glimepiride [Amaryl] 2 mg PO DAILY #30 tablet Prednisone 10 mg PO UD #30 tab Guaifenesin [Mucinex] 1,200 mg PO BID #14 tab.er.12h Primary Care Physician: Xander Piedra III, MD [Primary Care Provider] - Please follow up with your Primary Care Physician in: in 2 weeks Medical Necessity - Tobacco Use Smoking Status: Current every day smoker Tobacco Use: Cigarettes Meaningful Use Info Meaningful Use Diagnoses (Choose all that apply): None applicable Code Visit Inpatient E&M: 46508 Disch Hosp
[2018-08-29 09:16] VITALS: BP 146/86; PULSE 88; RESP 18; TEMP 36.7; O2SAT 92
[2018-08-29] MEDS: Clopidogrel Bisulfate 75 MG Tablet PO (09:18)
[2018-08-29] MEDS: Isosorbide Mononitrate 30 MG Tablet PO (09:18)
[2018-08-29] MEDS: Insulin Lispro 100 UNIT/ML INSULN.PEN SQ (09:18)
[2018-08-29] MEDS: Paroxetine 20 MG Tablet PO (09:18)
[2018-08-29] MEDS: Pantoprazole Sodium 20 MG Tablet PO (09:18)
[2018-08-29] MEDS: Lisinopril 20 MG Tablet 10 MG PO (09:18)
[2018-08-29] MEDS: guaiFENesin 1,200 MG Tablet 1200 MG PO (09:18)
[2018-08-29] MEDS: Aspirin E.C. 81 MG Tablet PO (09:18)
--- NOTE | 2018-08-29 11:13 | PHA.DC.COU ---
Pharmacy Services has performed discharge medication counseling for this patient. The patient was counseled on the following discharge medications and changes in medications for homegoing review. PREDNISONE TAPER INCREASE GLIMEPIRIDE DOSE MUCINEX The Reason for Use, instructions for use, and potential side effects were reviewed for all new medications. The patient's questions regarding all of their medications were answered. The patient was able to verbally demonstrate an understanding of their discharge medications.
--- NOTE | 2018-08-30 13:33 | CASEMGMT ---
DEEPALI BARONE Discharge Follow-Up Phone Call. Lace: 10 Strata: 3 Discharge Date: 08/29/18 Adm Dx: COPD w/hypoxic Resp failure. Attempted discharge follow-up phone all. No answer. Message left for pt to return call to BRANCH BANKERMariluz PALUMBO CM, if he has any questions/concerns re: discharge instructions, medications, or follow-up appts. Her phone number was provided. Georgie JAMES RN CM
== END 2018-08-29 11:20 | disposition home or self-care (01) | DRG 189 ==
LOC: ED 16:12 → PCU 16:52
PROVIDERS: Admitting Provider Family Medicine; Emergency Provider Emergency Medicine; Family Provider Family Medicine; PCP Family Medicine; Visit Provider Internal Medicine
DX: J96.01 Acute respiratory failure with hypoxia (principal); J44.1 Chronic obstructive pulmonary disease with (acute) exacerbation; E03.9 Hypothyroidism, unspecified; I25.10 Atherosclerotic heart disease of native coronary artery without angina pectoris; Z95.5 Presence of coronary angioplasty implant and graft; J06.9 Acute upper respiratory infection, unspecified; E78.5 Hyperlipidemia, unspecified; E11.9 Type 2 diabetes mellitus without complications; G47.33 Obstructive sleep apnea (adult) (pediatric); I87.2 Venous insufficiency (chronic) (peripheral); K21.9 Gastro-esophageal reflux disease without esophagitis; I10 Essential (primary) hypertension; F32.9 Major depressive disorder, single episode, unspecified; Z79.84 Long term (current) use of oral hypoglycemic drugs; Z72.0 Tobacco use
CPT/HCPCS: 36415; 36600; 71045; 80048; 80053; 81001; 82803; 82962; 83605; 84484; 85025; 85610; 85730; 87040; 87086; 87633; 87804; 93005; 94640; 94667; 99285; J7030; A4216

== ENCOUNTER → 2018-11-20 14:02 | Outpatient (CLI) | payer MEDICARE, SELFPAY ==
[2017-08-02 11:16] VITALS: BMI 26.0
[2018-08-27 17:04] VITALS: BMI 24.7
--- NOTE | 2018-11-20 14:27 | ECHOD_ITS ---
Reason For Study: DYSPNEA Procedure This was a 2D Doppler, Color Flow transthoracic echocardiogram. Exam performed in department. Left Ventricle Normal size and thickness. The estimated ejection fraction is 65 %. Stage 1 diastolic dysfunction. No regional wall motion abnormalities noted. Right Ventricle Normal size and thickness. Normal systolic function. Atria Normal left atrium. Normal right atrium. Normal atrial septum. Mitral Valve The mitral valve is structurally normal. No prolapse or stenosis seen. Tricuspid Valve Normal tricuspid valve. Trivial tricuspid valve insufficiency. Right ventricular systolic pressure estimated to be 33 mmHg. Aortic Valve Normal aortic valve. Trisinus/trileaflet aortic valve. Pulmonic Valve Normal pulmonic valve. Great Vessels Normal aortic root. Normal arch. Normal inferior vena cava. Inferior vena cava collapse with sniff. Pericardium/Pleural No pericardial effusion. MMode/2D Measurements & Calculations LVIDd: 3.8 cm IVSd: 0.93 cm Ao root diam: 3.4 cm LVIDs: 2.5 cm LVPWd: 0.94 cm FS: 33.2 % LAV(MOD-bp): 45.7 ml LVAd ap4: 29.0 cm2 SV(MOD-sp4): 54.4 ml LAV(MOD-bp) Indexed: 22.5 ml/m2 EDV(MOD-sp4): 81.2 ml LAV(MOD-sp2): 43.2 ml EDV(sp4-el): 84.4 ml LAV(MOD-sp4): 47.6 ml LVAs ap4: 13.1 cm2 ESV(MOD-sp4): 26.8 ml ESV(sp4-el): 26.7 ml EF(MOD-sp4): 67.0 % EF(sp4-el): 68.3 % SV(sp4-el): 57.7 ml LA A4 area: 18.0 cm2 LA dimension(2D): 3.7 cm RA A4 area: 16.7 cm2 Time Measurements MV dec time: 0.31 sec Doppler Measurements & Calculations MV E max toño: 54.1 cm/sec Lat Peak E' Toño: 8.3 cm/sec Med Peak E' Toño: 6.5 cm/sec MV A max toño: 70.6 cm/sec E/E' lat: 6.5 E/E' med: 8.4 MV E/A: 0.77 Ao V2 max: 133.0 cm/sec LV V1 max: 125.3 cm/sec PA V2 max: 108.6 cm/sec Ao max P.1 mmHg LV V1 max P.3 mmHg TR max toño: 257.7 cm/sec TR max P.6 mmHg Interpretation Summary The estimated ejection fraction is 65 %. Stage 1 diastolic dysfunction. Trivial tricuspid valve insufficiency. Right ventricular systolic pressure estimated to be 33 mmHg. Compared to echo report dated 07/13/2017, no appreciable changes noted. Ordering Physician: Javi^Haider^^^ Referring Physician: LORENA FIGUEROA Performed By: Iman Suarez, OBI, RVT
== END ==
PROVIDERS: Family Provider Family Medicine; PCP Family Medicine; Referring Provider Internal Medicine Cardiovascular Disease; Visit Provider Internal Medicine Cardiovascular Disease
DX: J96.01 Acute respiratory failure with hypoxia (principal)
CPT/HCPCS: 93306

== ENCOUNTER → 2018-11-27 08:59 | Outpatient (CLI) | payer MEDICARE, SELFPAY ==
[2017-08-02 11:16] VITALS: BMI 26.0
[2018-08-27 17:04] VITALS: BMI 24.7
[2018-11-27 09:55] LABS: AST(SGOT) 17 U/L (15-37); Alanine Aminotransfer ALT/SGPT 21 U/L (16-61); Albumin, Serum 3.4 g/dL (3.2-5.0); Alkaline Phosphatase 98 U/L (45-117); Cholesterol 123 mg/dL (200); Globulin 3.6 g/dL (2.2-4.2); High Density Lipoprotein 56 mg/dL; Triglycerides 81 mg/dL; Very Low Density Lipoprotein 16 mg/dL (5-40)
== END ==
PROVIDERS: Family Provider Family Medicine; PCP Family Medicine; Referring Provider Internal Medicine Cardiovascular Disease; Visit Provider Internal Medicine Cardiovascular Disease
DX: E78.5 Hyperlipidemia, unspecified (principal); Z79.899 Other long term (current) drug therapy
CPT/HCPCS: 36415; 80061; 80076

== ENCOUNTER → 2018-11-29 10:43 | Outpatient (CLI) | payer MEDICARE, SELFPAY ==
[2017-08-02 11:16] VITALS: BMI 26.0
[2018-08-27 17:04] VITALS: BMI 24.7
--- NOTE | 2018-11-29 10:44 | STEWCON_ITS ---
Reason For Study: CAD/ASHD Stress Results Protocol: Stress Echocardiogram Maximum Predicted HR: 142 bpm Target HR: 121 bpm % Maximum Predicted HR: 85 % DurationHeart Rate Stage (mm:ss) (bpm) BP Comment BASELINE 60 135/72DILUTED DEFINITY 5 CC USED JEFFREY PROTOCOL- STAGE 1 3:00 105 138/74SOB, LEG DISCOMOFRT JEFFREY PROTOCOL- STAGE 2 1:14 120 / SOB, LEG DISCOMFORT, NO CP RECOVERY 69 132/70SOB RESOLVED Stress Duration: 4:14 mm:ss Maximum Stress HR: 120 bpm Baseline Echocardiogram Findings The estimated ejection fraction is 65 %. Stress Echo Wall motion Data Resting WM Intermediate WM Stress WM Resting Wall Motion Wall Motion Stress No regional wall motion Mid-Anterior : Mildly abnormalities noted. hypokinetic. EKG Data The baseline ECG displays normal sinus rhythm. The patient exercised according to the regular Ejffrey protocol for a total duration of 4:14. The maximum heart rate attained was 120 beats per minute. This was 84% of maximum predicted heart rate. The patient exercised into stage 2 of the Jeffrey protocol. At peak exercise, upsloping ST changes only were noted, which did not meet the criteria for ischemia. No clinical angina was noted. Interpretation Summary The estimated ejection fraction is 65 %. Mid-Anterior : Mildly hypokinetic Abnormal, adequate, treadmill echocardiogram. Positive for ischemia by echocardiographic criteria. Patient appeared to develop mild mid anterior hypokinesis seen in the parasternal short axis view. Patient had subtle upsloping ST segment depression at peak exercise. Below average exercise capacity for age. Rare PVCs noted. Appropriate blood pressure response to exercise. Poor echo windows necessitated use of IV Definity agent making accurate interpretation somewhat problematic. No anginal symptoms noted. Final LVEF of 65%. Test terminated due to target heart rate achieved, dyspnea and leg discomfort. The study was technically difficult. Contrast injection was performed. Ordering Physician: Haider Caldwell Referring Physician: Haider Caldwell Performed By: Leona Cuevas, OBI, RVT
== END ==
PROVIDERS: Family Provider Family Medicine; PCP Family Medicine; Referring Provider Internal Medicine Cardiovascular Disease; Visit Provider Internal Medicine Cardiovascular Disease
DX: I25.118 Atherosclerotic heart disease of native coronary artery with other forms of angina pectoris (principal)
CPT/HCPCS: 93017; 93350; Q9957; A4216; C8928

== ENCOUNTER 2018-12-06 07:57 | Day surgery (SDC) | payer MEDICARE, SELFPAY ==
[2017-08-02 11:16] VITALS: BMI 26.0
[2018-08-27 17:04] VITALS: BMI 24.7
[2018-12-04 16:58] LABS: Hematocrit 39.4 % (40-54); Hemoglobin 12.8 g/dl (13.0-16.5); Mean Corp Hgb Conc 32.5 g/gl (32-36); Mean Corpuscular Volume 89.1 fL (80-94); Mean Platelet Vol. 9.7 fl (6.2-12.0); Platelet Count 216 K/mm3 (150-450); RBC Distribution Width CV 13.8 % (11.6-14.6); RBC Distribution Width SD 45.2 fl (35.1-43.9); Red Blood Count 4.42 M/mm3 (4.6-6.2); White Blood Count 5.5 K/mm3 (4.4-11.0)
[2018-12-04 16:59] LABS: Scan Indicated on CBC? Y/N NO
[2018-12-04 17:21] LABS: Prothrombin Time (Protime)PT. 13.3 SECONDS (11.7-14.9)
[2018-12-04 17:22] LABS: Anion Gap 4 (5-15); BUN 19 mg/dL (7-18); BUN/Creat Ratio 17.9 RATIO (10-20); Chloride 108 mmol/L (98-107); Creatinine, Serum 1.06 mg/dL (0.70-1.30); EST Glomerular Filtration Rate 72 mL/min (>60); Est Glom Filt Rate - Afr Amer 87 mL/min (>60); Glucose 55 mg/dL (74-106); Partial Thromboplast Time 31.7 Seconds (24.1-36.2); Potassium 4.4 mmol/L (3.5-5.1); Sodium Level 143 mmol/L (136-145)
[2018-12-06] VITALS (19 sets, daily range): BP systolic 126–164; BP diastolic 71–87; PULSE 48–90; RESP 16–24; TEMP 36.1–36.7; O2SAT 98–100; BMI 25.0; BMI 25.1
--- NOTE | 2018-12-06 08:29 | PCM.HP.BLA ---
History and Physical Date of Admission: 12/06/18 [facility] History of Present Illness Details: JOSE ARMANDO ARNETT, is a 78 M who presents to the cath lab nurse today for heart catheterization. 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 Jared Bach at [facility] on 06/29/00. At that time patient had a proximal 60% LAD, nonobstructive RCA disease, and no mention of the circumflex. He also underwent a heart catheterization on 08/02/2017 that showed double vessel coronary artery disease of the LAD and diagonal 1. This resulted in successful PTCA/BEATRIZ to mid LAD and mid diagonal 1 and PTCA to ostial diagonal 1. He underwent a right carotid endarterectomy in 2018. In addition the patient appears to have COPD and continues to smoke. Patient has a [id number] smoking history and still smokes about a pack a day. He underwent a stress echocardiogram on 11/29/2018 that was considered to be an abnormal, adequate, treadmill echocardiogram that was positive for ischemia by echocardiographic criteria. Because of his abnormal stress test, he will proceed with heart catheterization. He denies chest, arm, jaw, or neck discomfort. His exercise tolerance is stable. He denies symptoms of CHF, palpitations, near syncope, or syncopal episodes. He denies edema or claudication issues. He states feeling episodes of feeling sweaty associated with lightheadedness and dizziness. This was similar to July 2017. He denies orthopnea, PND, fever, chills, blood in urine, blood in stool, myalgia, or unexplainable fatigue. Intake Vital Signs 12/06/18 Blood Pressure 154/88 H 12/06/18 Pulse Rate 76 12/06/18 Temperature 98 F 12/06/18 Oxygen Delivery Method room air 12/05/18 Body Mass Index (BMI) 24.7 Intake Visit Reasons: Amb Documentation Allergies No Known Allergies Allergy (Verified 10/23/18 09:58) [facility] Medical History (Updated 12/05/18 @ 16:26 by MALLY Stokes) Frequent headaches (Acute) Ataxia (Acute) Poor balance (Acute) Pneumonia (Acute) Emphysema lung (Chronic) Acute bronchitis (Acute) Carotid stenosis, right (Acute) Chest pain (Acute) Hypothyroidism (Chronic) Snoring (Chronic) Diabetes mellitus, type II (Chronic) Venous insufficiency (chronic) (peripheral) (Chronic) Hyperlipidemia (Chronic) COPD (chronic obstructive pulmonary disease) (Chronic) Pulmonary nodules (Chronic) Tobacco use disorder (Chronic) Sinus bradycardia (Chronic) Atherosclerotic heart disease of [place] coronary artery with other forms of angina pectoris (Chronic) Surgical History (Updated 08/27/18 @ 16:42 by Ryne Christina MD) Stented coronary artery (Chronic) History of colonoscopy (Acute) History of esophagogastroduodenoscopy (Acute) History of left heart catheterization (Chronic) History of right-sided carotid endarterectomy (Acute ~11/02/17) Family History (Updated 06/24/17 @ 11:22 by Yesika Medina) Father , age 61 Myocardial infarction CAD (coronary artery disease) Sudden cardiac Mother , age 80 Congestive heart failure Sister , cause unknown, suspected CVA No problems noted. Social History Smoking Status: Current every day smoker alcohol intake: never substance use type: does not use caffeine: Yes Type: coffee what type of physical activity do you participate in: none seatbelt use: always do you feel safe at home: Yes ROS Const Const: Positive for excessive sweating; negative for fatigue, weakness, body ache, fever(s) or chills ENT ENT: Positive for dizziness Cardio Chest Pain: No Palpitations: No Edema: None Muscle aches with walking: None Resp Respiratory: Negative for SOB with activity, SOB at rest, SOB orthopnea\SOB lying down or paroxysmal nocturnal dyspnea GI GI: Negative nausea, vomiting blood/hematemesis, bright, red blood in stools or black,tarry stools : Negative for hematuria or frequent nighttime urination/ nocturia Musc Musc: Negative for muscle aches/ myalgia Skin Skin: Negative non-healing lesions or rash Neuro Neuro: Positive for dizziness and lightheadedness; negative for near syncope, syncope, orthostatic symptoms or weakness Endo Endo: Positive for excessive sweating; negative for fatigue Allergy Allergy/Immunology: Negative for rash Cardiology Exam Const Appearance: cooperative, healthy appearing, comfortable and no acute distress Nutritional Appearance: average body habitus and well nourished Orientation: alert, awake and oriented x3 Head Head: normal to inspection Ears: hearing grossly normal bilaterally Nose: external nose normal Face and Sinus: face symmetric Mouth: oral mucosae normal Eyes General: appearance normal, both eyes and all related structures Eyelids: eyelids normal EOM: EOM intact bilaterally Neck Neck: normal visual inspection and no JVD Carotids: normal carotid upstroke Chest Chest inspection: normal inspection of the chest, symmetric chest movement and normal respiratory effort; negative cough Auscultation: Bilateral: Clear to Auscultation Cardio Rate: regular rate Rhythm: regular rhythm Heart sounds: S1 normal and S2 normal; negative rub, gallop or murmur GI GI: normal to inspection Neuro General: alert, awake, oriented x3 and CN's II-XI intact bilaterally Skin Skin: no rashes or lesions noted Extremities Pulses: Normal: Right Posterior Tibial Pulse, Left Posterior Tibial Pulse, Right Radial Pulse, Left Radial Pulse Lower Extremity Edema: None: Bilateral Psych Psychological: normal affect Assessment & Plan 1. Atherosclerotic heart disease of [place] coronary artery with other forms of angina pectoris I25.118 08/02/17: BEATRIZ to mid LAD, mid DX 1, and ostial DX1 per Dr. Caldwell @ [facility]. 06/29/[address] [facility] [address] Rico Bach: 60% stenosis LAD, no obstructive CAD Plan - MALLY Stokes His stress test from November 2018 was considered to be abnormal. His echocardiogram in November 2018 showed ejection fraction of 65% stage I diastolic dysfunction and when compared to previous one from July 2017 there were no appreciable changes noted. His LAD her last heart catheterization in July 2017 showed ejection fraction of 65% with residual distal LAD, ostial diagonal 2, and mid RCA disease. He will proceed with heart catheterization for further evaluation. Depending on results further recommendation will be made. 2. Stented coronary artery Z95.5 08/02/17: BEATRIZ to mid LAD, mid DX 1, and ostial DX1 per Dr. Caldwell @ [facility] Plan - MALLY Stokes This will be reassessed during his heart catheterization. Based on results further recognition will be made. 3. Hyperlipidemia, unspecified hyperlipidemia type E78.5 Plan - MALLY Stokes Lipid panel from 11/27/2018 showed cholesterol: 123, HDL: 56, LDL: 51, and triglycerides: 81. He will continue with aggressive medical management which includes atorvastatin 80 mg p.o. daily. Plan Detail Additional Comments - MALLY Stokes Thank you for allowing us to participate in the patients plan of care, if you have any questions please do not hesitate to call. This note was generated using a voice recognition system and there may be incorrect words, spelling or punctuation that were not noted when reviewing the office note prior to saving. Coding Diagnoses Atherosclerotic heart disease of [place] coronary artery with other forms of angina pectoris I25.118 Stented coronary artery Z95.5 Hyperlipidemia, unspecified hyperlipidemia type E78.5 Hyperlipidemia type: unspecified Coding Diagnoses Atherosclerotic heart disease of [place] coronary artery with other forms of angina pectoris I25.118 Stented coronary artery Z95.5 Hyperlipidemia, unspecified hyperlipidemia type E78.5 Hyperlipidemia type: unspecified Supplemental Info Supplemental Information Stress echocardiogram from 11/29/2018: Interpretation Summary The estimated ejection fraction is 65 %. Mid-Anterior : Mildly hypokinetic Abnormal, adequate, treadmill echocardiogram. Positive for ischemia by echocardiographic criteria. Patient appeared to develop mild mid anterior hypokinesis seen in the parasternal short axis view. Patient had subtle upsloping ST segment depression at peak exercise. Below average exercise capacity for age. Rare PVCs noted. Appropriate blood pressure response to exercise. Poor echo windows necessitated use of IV Definity agent making accurate interpretation somewhat problematic. No anginal symptoms noted. Final LVEF of 65%. Test terminated due to target heart rate achieved, dyspnea and leg discomfort. The study was technically difficult. Contrast injection was performed. Renal artery duplex from 09/15/2017: Interpretation Summary Greater than 60% stenosis right renal artery. Maintained right renal length of 12.1cm Less than 60% stenosis left renal artery but close to this range. Maintained left renal length of 12 cm Normal aortic diameter 2 x 2.1 cm Left renal resistivity indices suggestive of renal parenchymal disease. Echocardiogram from 11/20/2018: Interpretation Summary The estimated ejection fraction is 65 %. Stage 1 diastolic dysfunction. Trivial tricuspid valve insufficiency. Right ventricular systolic pressure estimated to be 33 mmHg. Compared to echo report dated 07/13/2017, no appreciable changes noted. Carotid Duplex Ultrasound 09/15/2017: Interpretation Summary Irregular calcific plague at the proximal right internal carotid with >70% stenosis and likely >80% stenosis. Irregular calcific plague at the proximal left internal carotid with <50% stenosis. Mild plague bilateral common carotid arteries. Mild disease bilateral external carotid arteries. Right vertebral flow is retrograde concerning for right subclavian stenosis. Patent and antegrade left vertebral. Heart Catheterization from 08/02/2017: CORONARY ANGIOGRAPHY DOMINANCE: Right Dominant LEFT HEART ASSESSMENT Left Ventricular Ejection Fraction: by LV Gram 65 % Normal Left Ventricular systolic function Normal Left Ventricular End Diastolic Pressure Normal LV wall motion LEFT MAIN: Angiographically normal LEFT ANTERIOR DESCENDING ARTERY: MID LAD: 75 % Stenosis DISTAL LAD: 50 % Stenosis DIAGONAL 1: Mid - 75 % Stenosis DIAGONAL 2: Ostial - 60 % Stenosis CIRCUMFLEX ARTERY: Mild luminal irregularities less than 30% RIGHT CORONARY ARTERY: MID RCA: 60 % Stenosis CONCLUSIONS Double vessel CAD of the LAD and DIAG#1 Non obstructive coronary arteries Normal LV size, wall motion,and systolic function Normal Left Ventricular End Diastolic Pressure Successful PTCA/BEATRIZ of the of mid LAD with a 3.0 x 16 Promus Synergy; 75%-->0%, no dissection. Successful PTCA/BEATRIZ of the mid DIAG#1 with a 2.25 x 8 promus Synergy; 75%-->0%, no dissection. Successful PCI with PTCA to the ostial DIAG#1 with a 2.0 x 8 Balloon after LAD stent deployment; 85%-->40%, no dissection. Labs LDL Cholesterol 51 mg/dL (0-130) 11/27/18 HDL Cholesterol 56 mg/dL (40-) 11/27/18 Triglycerides 81 mg/dL (-199) 11/27/18 VLDL Cholesterol 16 mg/dL (5-40) 11/27/18 Diagnostics Electrocardiogram 08/27/18 Echocardiogram 11/20/18 Stress Echocardiogram 11/29/18 Chest X-Ray 08/27/18
--- NOTE | 2018-12-06 11:12 | CL.I_ITS ---
Patient Name: JOSE ARMANDO ARNETT Study Date: 12/06/2018 Performing: Haider Caldwell MD Ht: 72 inches 182.88 cm : 1940 Wt: 184.99 lbs 83.91 kg Age: 78 Gender: male BSA: 2.06 PROCEDURE(S) PERFORMED [id number]-RNT/COR/LV [id number] W OR WO PTCA, SINGLE CORONARY ARTERY [id number], EACH ADD'L CORONARY ART, SAME MAJOR CLINICAL PROFILE AND CO-MORBIDITIES Indications: ACS > 24 hrs, New Onset Angina <= 2 months, Stable Known CAD Heart Failure: None Stress/Imaging Date: 11/29/2018 Stress Echocardiogram: Positive Low Risk Angina Classification Anginal Classification w/in 2 Weeks: CCS I CAD Presentations: Other: Dyspnea on exertion. Comorbidities/Risk Factors: Hypertension Dyslipidemia Prior PCI Peripheral Arterial Disease Diabetes Mellitus: Diabetes Therapy: Oral CONCLUSIONS Non obstructive coronary arteries Single vessel CAD of the distal LAD and ostial DIAG#2 at bifurction. Normal LV size, wall motion,and systolic function Normal Left Ventricular systolic function LVEF: by LV gram 65 % Normal Left Ventricular End Diastolic Pressure Successful PTCA/BEATRIZ to ostial DIAG#2 segueing into main LAD with a 2.5 x 16 Promus Synergy, post dila jorge proximally with a 3.0 x 8 NC Balloon; 75%-->0%, no dissection. Successful PCI with PTCA to the distal LAD with a 2.0 x 8 balloon; 75%-->30%, no dissection. RECOMMENDATIONS Referred for immediate PCI Highly recommend quitting all tobacco products Follow up with primary radiator repairer Risk factor modification ASA Indefinitley Plavix for at least 12 months Routine post interventional care Refer for Outpatient Cardiac Rehab Manual sheath removal per protocol Medical management of mid RCA which actually appears to have improved from previous cath in 2018. Follow up with Dr. Caldwell Aggressive BP control for SOTO. Manual sheath removal given access site and PVD. DESCRIPTION OF PROCEDURE The patient arrived to the procedure lab. The risks and benefits of the procedure as well as a full d escription of our services here and lack of surgical backup were fully explained to the patient and/o r their significant other prior to the catheterization. The Timeout was completed, verifying the jama ect patient and procedure. The patient's procedural site was prepped and draped in the usual fashion. Local anesthetic was given subcutaneously to right groin region with Lidocaine 2%. Using a modified Seldinger technique, arterial access was obtained via the right femoral artery, a 4Fr sheath was inse rted. Left Coronary Artery selective angiography was performed in multiple views using a 4 Fr. JL5 c atheter. Right Coronary Artery selective angiography was then performed in multiple views using a 4 F r. 3DRC catheter. Left Ventriculography was performed in HSU projection using a 4 Fr. Pigtail cathete r. LV to AO pullback pressures were then recordedThe images were reviewed and options discussed. A decision was then made to proceed with an Intervention, IVUS or other adjunct procedure. Arterial sheath was exchanged for a 6 Fr Sheath 45cm. EBU 3.75 Guide catheter was inserted and en gaged into the LCA. BMW Lee (1) Guide wire was advanced to the Diag 2. BMW Lee (2) Guide wire was advanced to the LAD. Emerge 2.0x 12 Balloon catheter was inserted. Balloon catheter was adva nced across lesion in the Diag 1, ostial. PTCA balloon inflated at 6 atms for 19 secs. Emerge 2.0 x 1 2 Balloon catheter was inserted. Balloon catheter was advanced across lesion in the LAD, distal. PTCA balloon inflated at 6 atms for 26 secs. Angiogram performed post balloon dilatation. Synergy 2.5 x 1 6 Drug Eluting stent was inserted. Drug Eluting stent was advanced across the lesion in the second di agonal, ostial Angiogram performed post stent deployment. Balloon catheter was inserted. NC Euphoria 3.0 x 8 Balloon catheter was advanced across lesion in the second diagonal, ostial Angiogram performe d post balloon dilatation. BMW Lee (1) Guide wire was repositioned to the LAD BMW Lee (2) Guide wire was repositioned to the 2nd Diagonal Emerge 2.0 x 12 Balloon catheter was in serted. Emerge 2.0 x 8 Balloon catheter was inserted. Balloon catheter was advanced across lesion in the LAD, distal. PTCA balloon inflated at 8 atms for 20 secs. PTCA balloon inflated at 8 atms for 30 secs. Contrast was injected through the sheath and the Right Iliac and Femoral artery were assessed f or possible closure device. The arterial sheath was exchanged to a standard sheath. The arterial she ath was pulled and manual compression applied until hemostasis is achieved. CORONARY ANGIOGRAPHY DOMINANCE: Right Dominant LEFT HEART ASSESSMENT Left Ventricular Ejection Fraction: by LV Gram 65 % Normal Left Ventricular systolic function Normal Left Ventricular End Diastolic Pressure Normal LV wall motion LEFT MAIN: Angiographically normal LEFT ANTERIOR DESCENDING ARTERY: MID LAD: Previously placed stent is patent DISTAL LAD: 75 % Stenosis DIAGONAL 1: Proximal - Previously placed stent is patent DIAGONAL 2: Ostial - 75 % Stenosis CIRCUMFLEX ARTERY: Mild luminal irregularities less than 30% OM 1: Proximal - Mild luminal irregularities less than 30% RIGHT CORONARY ARTERY: MID RCA: Mild luminal irregularities less than 30% INTERVENTION INFORMATION LESION SITE: 2nd Diagonal (Ostial) Lesion Complexity: High/C, lesion at bifurcation: Yes, thrombus present: No, lesion length: 16 mm, cu lprit lesion: Yes Pre Stenosis: 75 % Pre intervention SADAF flow: 3 PROCEDURE: Drug Eluting Stent with pre and post dilatation Post Stenosis: 0 % Post intervention SADAF flow: 3 Lesion Devices: Cook 6F 45cm Sheath Falcon Socialtronic 6 Fr EBU3.75 100cm Guide Catheter Rivera .014 BMW Lee Straight 190cm Rivera .014 BMW Lee Straight 190cm Michael Sci EMERGE MR 2.00x12 BALLOON Michael Sci Synergy MR BEATRIZ 2.50x16 Medtronic NC EUPHORA RX 3.0x08 BALLOON LESION SITE: LAD (Distal) Lesion Complexity: Non-High/Non-C, lesion at bifurcation: Yes, thrombus present: No, lesion length: 8 mm, culprit lesion: No Pre Stenosis: 75 % Pre intervention SADAF flow: 3 PROCEDURE: Balloon Angioplasty Post Stenosis: 30 % Post intervention SADAF flow: 3 Lesion Devices: Cook 6F 45cm Sheath Medtronic 6 Fr EBU3.75 100cm Guide Catheter Rivera .014 BMW Lee Straight 190cm Rivera .014 BMW Lee Straight 190cm Michael Sci EMERGE MR 2.00x12 BALLOON Michael Sci EMERGE MR 2.00x08 BALLOON COMPLICATIONS No Complications PROCEDURE MEDICATIONS Oxygen: 2 L/min via nasal cannula Heparin 6000 unit(s) IV 12/06/2018 10:08:32 Nitro 200 mcg IC 12/06/2018 10:10:06 Nitro 200 mcg IC 12/06/2018 10:10:06 Nitro 200 mcg IC 12/06/2018 10:18:30 Nitro 200 mcg IC 12/06/2018 10:28:49 Nitro glycerin 25mg / 250ml D5W @ 5 mcg/min IV started 12/06/2018 10:42:20 Nitro Tab 1 SL 12/06/2018 10:45:22 Nitro glycerin 25mg / 250ml D5W @ 15 mcg/min (increased rate) 12/06/2018 10:52:38 IV Bolus: .9 NaCl 500ml total 12/06/2018 10:08:39 SUMMARY OF HEMODYNAMIC DATA Time AIR REST ECG 08:13:53 AO 141/62 (91) SA 09:59:02 LV 156/-20, 8 10:05:58 LV 162/-20, 3 10:06:05 LVp 156/-15, 8 10:06:10 AOp 153/63 (97) 10:06:15 Signed By Haider Caldwell MD On 12/06/2018 11:11:41 Haider Caldwell MD
--- NOTE | 2018-12-06 11:22 | DCINST_ITS ---
<Dwaine Huerta - Last Filed: 12/06/18 13:48> Discharge Diet: Low fat/ Low Cholesterol Discharge Activity: Return to Normal Activity May shower in (days): 1 - no tub baths for 5 days May resume sexual activity in: 1-2 weeks Lifting Restrictions: Do not lift anything greater than 10 pounds for 3 days Call your doctor if your incision/area has: Continuous Slow Oozing, Sudden Increased Bleeding, Increased Pain/ Swelling, Foul Smelling Discharge, Swelling at the incision site Call your doctor if you observe: Fever of 101 or Higher, Shortness of breath, Chest pain Remove Dressing in (days):: 1 Cleanse incision/area with: Soap & Water Additional Instructions: You will continue with Aspirin and Plavix therapy. If anyone asks you to stop your Plavix medication, please call the [facility] at [phone]. You will remain on Plavix for at least one year. You are scheduled for a post hospital follow-up with Dwaine Savage, Nurse Practitioner, on December 22 at 2:30 PM at the [facility]. If you have any questions or concerns, please call the [facility]. Allergies/Adverse Reactions: Allergies No Known Allergies Allergy (Verified 10/23/18 09:58) Medications to take at Discharge albuterol sulfate 2.5 mg/3 mL (0.083 %) solution for nebulization 2.5 mg INHALATION BID ml 06/24/17 aspirin 81 mg tablet,delayed release 81 mg PO QDAY 06/24/17 budesonide-formoterol HFA 160 mcg-4.5 mcg/actuation aerosol inhaler 2 puff I NHALATION Q12H 06/24/17 cyanocobalamin (vit B-12) 1,000 mcg tablet 1,000 mcg PO QDAY 06/24/17 levothyroxine 150 mcg capsule 150 mcg PO QDAY cap 06/24/17 lorazepam 0.5 mg tablet 0.5 mg PO DAILY PRN PRN tab 06/24/17 paroxetine 20 mg tablet 20 mg PO QDAY 06/24/17 thiamine HCl (vitamin B1) 100 mg tablet 50 mg PO QDAY tab 06/24/17 atorvastatin 80 mg tablet 80 mg PO QDAY 06/28/17 metformin 500 mg tablet 500 mg PO DAILY tab 07/26/17 Lisinopril 10 mg PO BID 11/02/17 Omeprazole 20 mg PO QDAY 11/02/17 Glimepiride [Amaryl] 2 mg PO DAILY #30 tab 08/29/18 Guaifenesin [Mucinex] 1,200 mg PO BID #14 tab.er.12h 08/29/18 Prednisone 10 mg PO UD #30 tab 08/29/18 isosorbide mononitrate ER 60 mg tablet,extended release 24 hr 30 mg PO BID 10/27/18 clopidogrel 75 mg tablet 75 mg PO DAILY #1 tab 11/30/18 carvedilol 3.125 mg tablet 3.125 mg PO BID #60 tab 12/06/18 Orders to be completed after discharge: Phase II, Outpatient Cardiac Rehab Location: None Selected Primary Care Physician: Xander Piedra III, MD [Primary Care Provider] - Test Results: Test results from this visit will be discussed in further detail at your follow- up appointment, if applicable. Please Follow Up With: Dwaine Savage - Nurse Practitioner When: December 22 2018 at 2:30 PM Proposed Discharge Date: 12/07/18 Cardiac Rehabilitation Info Cardiac Rehabilitation Program Information: Cardiac Rehabilitation is important for patients like you who are recovering from a heart problem. Cardiac rehabilitation programs are recognized as integral to the continued care of the patient with coronary heart disease. The cardiac rehabilitation program is designed to optimize a patient's physical, psychological, and social functioning. Health veterinarian laboratory animal care work in cardiac rehabilitation programs and assist you with getting the valeriano atments you need to get stronger and healthier - like exercise, healthy eating habits, and medications. Cardiac rehabilitation has been show to help people with heart problems live longer and have better life enjoyment than people who do not go to cardiac rehabilitation. Please contact the Cardiac Rehabilitation Program at [facility] at in two weeks if you have not heard from them. <Arnaud Mary - Last Filed: 12/07/18 10:36> Test Results: Test results from this visit will be discussed in further detail at your follow- up appointment, if applicable. Cardiac Rehabilitation Info Cardiac Rehabilitation Program Information: Cardiac Rehabilitation is important for patients like you who are recovering from a heart problem. Cardiac rehabilitation programs are recognized as integral to the continued care of the patient with coronary heart disease. The cardiac rehabilitation program is designed to optimize a patient's physical, psychological, and social functioning. Health veterinarian laboratory animal care work in cardiac rehabilitation programs and assist you with getting the treatments you need to get stronger and healthier - like exercise, healthy eating habits, and medications. Cardiac rehabilitation has been show to help people with heart problems live longer and have better life enjoyment than people who do not go to cardiac rehabilitation. Please contact the Cardiac Rehabilitation Program at [facility] at in two weeks if you have not heard from them.
[2018-12-06 11:35] LABS: ACT Activated Clotting Time 153 sec (74-137)
--- NOTE | 2018-12-06 12:04 | EKG12_ITS ---
Test Reason : AM EKG Blood Pressure : / mmHG Vent. Rate : 068 BPM Atrial Rate : 068 BPM P-R Int : 162 ms QRS Dur : 082 ms QT Int : 404 ms P-R-T Axes : 078 073 063 degrees QTc Int : 429 ms Normal sinus rhythm with sinus arrhythmia Normal ECG Confirmed by MALIKA MAO, LESLIE ([id number]), supervising film or videotape editor ADDIE SHEEHAN ([id number]) on 12/11/2018 1:58:03 PM Referred By: Haider Caldwell Confirmed By:LESLIE DALY MD
[2018-12-06] MEDS: 0.9% Normal Saline 1,000 ML 150 ML IV (12:10)
--- NOTE | 2018-12-06 12:45 | CRPHASE1 ---
Patient Communication Former Patient:: Phase I PHII Cardiac Rehab Discussed with Patient:: Yes Guide to Cardiac Rehab Given to Patient:: Yes Cardiac Rehab Facility Choice List Given to Patient:: Yes - [facility] PHII:: Communication Given to CR, Refer to [facility] President + Publisher:: Haider Caldwell Sessions:: 36 sessions - 3 days/wk, 12 weeks - He was previously seen by us Risk Factors/Lifestyle Family History: Family History (Last Reviewed 10/27/18 @ 14:30 by Yesika Medina) Father Myocardial infarction CAD (coronary artery disease) Sudden cardiac Mother Congestive heart failure Sister No problems noted. Cardiac Rehabilitation Info Cardiac Rehabilitation Program Information: Cardiac Rehabilitation is important for patients like you who are recovering from a heart problem. Cardiac rehabilitation programs are recognized as integral to the continued care of the patient with coronary heart disease. The cardiac rehabilitation program is designed to optimize a patient's physical, psychological, and social functioning. Health director of home care hospice work in cardiac rehabilitation programs and assist you with getting the treatments you need to get stronger and healthier - like exercise, healthy eating habits, and medications. Cardiac rehabilitation has been show to help people with heart problems live longer and have better life enjoyment than people who do not go to cardiac rehabilitation. Please contact the Cardiac Rehabilitation Program at [facility] at in two weeks if you have not heard from them.
--- NOTE | 2018-12-06 12:47 | CRPH1.INSTRU ---
General Education CAD and cardiac anatomy and function:: Patient communicates acknowledgment - previously seen by us
[2018-12-06] MEDS: guaiFENesin 1,200 MG Tablet 1200 MG PO (21:24)
[2018-12-06] MEDS: Atorvastatin Calcium 80 MG Tablet PO (21:24)
[2018-12-06] MEDS: Isosorbide Mononitrate 30 MG Tablet PO (21:24)
[2018-12-06] MEDS: Lisinopril 10 MG Tablet PO (21:24)
[2018-12-06 21:30] LABS: Bedside Glucose 248 mg/dL (70-110)
[2018-12-07] VITALS (12 sets, daily range): BP systolic 114–169; BP diastolic 61–93; PULSE 51–77; RESP 18–22; TEMP 36.7–36.8; O2SAT 93–99
[2018-12-07] MEDS: Carvedilol 3.125 MG TABLET PO ×2 (00:12→08:38)
[2018-12-07 04:14] LABS: Hematocrit 40.9 % (40-54); Hemoglobin 13.1 g/dl (13.0-16.5); Mean Corpuscular Hgb 28.2 pg (27.0-32.0); Mean Platelet Vol. 10.5 fl (6.2-12.0); Platelet Count 200 K/mm3 (150-450); RBC Distribution Width CV 13.7 % (11.6-14.6); RBC Distribution Width SD 43.3 fl (35.1-43.9); Red Blood Count 4.65 M/mm3 (4.6-6.2); White Blood Count 6.6 K/mm3 (4.4-11.0)
[2018-12-07 04:18] LABS: Anion Gap 6 (5-15); BUN 16 mg/dL (7-18); BUN/Creat Ratio 17.4 RATIO (10-20); Calcium,Total 8.9 mg/dL (8.5-10.1); Chloride 105 mmol/L (98-107); Cholesterol 107 mg/dL (200); Creatinine, Serum 0.92 mg/dL (0.70-1.30); EST Glomerular Filtration Rate 84 mL/min (>60); Est Glom Filt Rate - Afr Amer 102 mL/min (>60); Estimated Creatinine Clearance 72.63 ml/min; Glucose 139 mg/dL (74-106); High Density Lipoprotein 50 mg/dL; Potassium 4.4 mmol/L (3.5-5.1); Sodium Level 140 mmol/L (136-145); Triglycerides 98 mg/dL; Very Low Density Lipoprotein 20 mg/dL (5-40)
[2018-12-07 04:22] LABS: Scan Indicated on CBC? Y/N NO
[2018-12-07] MEDS: Levothyroxine 150 MCG Tablet PO (05:12)
[2018-12-07] MEDS: Budesonide Respules 0.5 MG/2 ML AMPUL.NEB. INHALATION (06:33)
[2018-12-07] MEDS: Albuterol 2.5 MG/3 ML VIAL.NEB. INHALATION (06:33)
[2018-12-07] MEDS: Pantoprazole Sodium 20 MG Tablet PO (08:37)
[2018-12-07] MEDS: Cyanocobalamin 500 MCG Tablet 1000 MCG PO (08:37)
[2018-12-07] MEDS: Aspirin E.C. 81 MG Tablet PO (08:37)
[2018-12-07] MEDS: Glimepiride 1 MG Tablet 2 MG PO (08:38)
[2018-12-07] MEDS: Thiamine Hydrochloride 100 MG Tablet 50 MG PO (08:38)
[2018-12-07] MEDS: guaiFENesin 1,200 MG Tablet 1200 MG PO (08:39)
[2018-12-07] MEDS: Isosorbide Mononitrate 30 MG Tablet PO (08:39)
[2018-12-07] MEDS: Clopidogrel Bisulfate 75 MG Tablet PO (08:39)
[2018-12-07] MEDS: Paroxetine 20 MG Tablet PO (08:40)
[2018-12-07] MEDS: Lisinopril 10 MG Tablet PO (08:43)
--- NOTE | 2018-12-07 10:00 | EKG12_ITS ---
Test Reason : Blood Pressure : / mmHG Vent. Rate : 062 BPM Atrial Rate : 062 BPM P-R Int : 176 ms QRS Dur : 078 ms QT Int : 412 ms P-R-T Axes : 079 074 066 degrees QTc Int : 418 ms Normal sinus rhythm Normal ECG Confirmed by MALIKA MAO, LESLIE ([id number]), publications editor ADDIE SHEEHAN ([id number]) on 12/11/2018 1:59:11 PM Referred By: Haider Caldwell Confirmed By:LESLIE DALY MD
--- NOTE | 2018-12-07 10:36 | PCM.DC.SUM ---
Discharge Date and Diagnosis Date of Admission: 12/06/18 Date of Discharge: 12/07/18 - Primary Discharge Diagnosis CAD status post LAD PTCA and diagonal branch PTCA/BEATRIZ - Secondary Discharge Diagnosis Chronic Problems (Last Updated 12/06/18 @ 12:06 by Yesika Medina) COPD with exacerbation (Chronic) Stented coronary artery (Chronic) 08/02/17: BEATRIZ to mid LAD, mid DX 1, and ostial DX1 per Dr. Caldwell @ [facility]; 12/06/2018: PTCA/BEATRIZ to ostial DIAG#2 segueing into main LAD with a 2.5 x 16 Promus Synergy, post dilated proximally with a 3.0 x 8 NC Balloon, PCI with PTCA to the distal LAD with a 2.0 x 8 balloon; 12/06/2018:Successful PTCA/BEATRIZ to ostial DIAG#2 segueing into main LAD with a 2.5 x 16 Promus Synergy, post dilated proximally with a 3.0 x 8 NC Balloon; 75%-->0%, no dissection. Successful PCI with PTCA to the distal LAD with a 2.0 x 8 balloon; 75%-->30%, no dissection. MONI (obstructive sleep apnea) (Chronic) Emphysema lung (Chronic) Hypothyroidism (Chronic) Snoring (Chronic) Diabetes mellitus, type II (Chronic) Venous insufficiency (chronic) (peripheral) (Chronic) Hyperlipidemia (Chronic) COPD (chronic obstructive pulmonary disease) (Chronic) Pulmonary nodules (Chronic) per chest CT 06/25/2016 Tobacco use disorder (Chronic) Sinus bradycardia (Chronic) Atherosclerotic heart disease of [place] coronary artery with other forms of angina pectoris (Chronic) 06/29/[address] [facility] [address] Rico Bach: 60% stenosis LAD, no obstructive CAD; 08/02/17: BEATRIZ to mid LAD, mid DX 1, and ostial DX1 per Dr. Caldwell @ [facility]; 12/06/2018: PTCA/BEATRIZ to ostial DIAG#2 segueing into main LAD with a 2.5 x 16 Promus Synergy, post dilated proximally with a 3.0 x 8 NC Balloon, PCI with PTCA to the distal LAD with a 2.0 x 8 balloon. History of left heart catheterization (Chronic) 06/29/[address] [facility] [address] Rico Bach: 60% stenosis LAD, no obstructive CAD Hospital Course and Treatment Operations: - - Right carotid endarterectomy Procedures: Cardiac catheterization, - - Cardiac intervention Summary of Care Provided: The patient is a 78 year old with a history of underlying hyperlipidemia, hypertension, diabetes mellitus, CAD, PCI, who presents for further evaluation with diagnostic cardiac catheterization and subsequent revascularization therapy. He underwent diagnostic cardiac catheterization and subsequently underwent additional catheter based revascularization therapy with LAD PTCA and diagonal branch PTCA/BEATRIZ. He was monitored in the ICU overnight. He remained symptomatically and hemodynamically stable. He remained in sinus rhythm. He had no new acute concerns/changes. On this day it was felt the patient could be released home for continued outpatient cardiovascular follow-up. [] Subjective: The patient is awake and alert with no acute changes. - Physical Exam General: Alert, Oriented x3, Cooperative, No apparent distress HEENT: Atraumatic, PERRLA, EOMI, Normocephalic Oral: Moist Mucosa Neck: Supple, No JVD Lungs: Clear to auscultation Cardiovascular: Regular rate, Normal S1, Normal S2 Abdomen: Bowel Sounds Present, Soft, Non Tender Extremities: No clubbing, No cyanosis, No edema Neurological: Neuro grossly intact Psych/Mental Status: Normal Affect Comment: Right inguinal area: Femoral artery: Pulses 2+/4+ without bruits without he Vital Signs Temp Pulse Resp BP Pulse Ox 98.2 F 55 L 22 H 134/67 H 98 12/07/18 07:00 12/07/18 10:00 12/07/18 10:00 12/07/18 10:00 12/07/18 10:00 Oxygen Flow Rate (L/min) 1 Oxygen Delivery Method Room Air Weight: 184 lb 4.903 oz Body Mass Index (BMI) 25.1 Finger Stick Blood Glucose 148 Intake and Output for Last 24 Hours 12/05/18 12/06/18 12/07/18 23:59 23:59 23:59 Intake Total 1584 / 1584 120 / 120 Output Total 1500 / 1500 500 / 500 Balance 84 / 84 -380 / -380 Laboratory Tests Past 24 Hrs 12/06/18 12/07/18 12/07/18 10:41 03:45 03:45 WBC 6.6 RBC 4.65 Hgb 13.1 Hct 40.9 MCV 88.0 MCH 28.2 MCHC 32.0 RDW 13.7 RDW Differential 43.3 Plt Count 200 MPV 10.5 Activated Clotting Time 153 H Sodium 140 Potassium 4.4 Chloride 105 Carbon Dioxide 29.0 Anion Gap 6 BUN 16 Creatinine 0.92 Estim Creat Clear Calc 72.63 Est GFR (MDRD) Af Amer 102 Est GFR (MDRD) Non-Af 84 BUN/Creatinine Ratio 17.4 Glucose 139 H Calcium 8.9 Triglycerides 98 Cholesterol 107 LDL Cholesterol 37 VLDL Cholesterol 20 HDL Cholesterol 50 POC Glucose 12/06/18 21:28 POC Glucose 248 H Discharge Diet: Low fat/ Low Cholesterol Discharge Activity: Return to Normal Activity May shower in (days): 1 - no tub baths for 5 days May resume sexual activity in: 1-2 weeks Call your doctor if your incision/area has: Continuous Slow Oozing, Sudden Increased Bleeding, Increased Pain/ Swelling, Foul Smelling Discharge, Swelling at the incision site Call your doctor if you observe: Fever of 101 or Higher, Shortness of breath, Chest pain Remove Dressing in (days):: 1 Cleanse incision/area with: Soap & Water Home Medications: Medications to take at Discharge albuterol sulfate 2.5 mg/3 mL (0.083 %) solution for nebulization 2.5 mg INHALATION BID ml 06/24/17 aspirin 81 mg tablet,delayed release 81 mg PO QDAY 06/24/17 budesonide-formoterol HFA 160 mcg-4.5 mcg/actuation aerosol inhaler 2 puff INHALATION Q12H 06/24/17 cyanocobalamin (vit B-12) 1,000 mcg tablet 1,000 mcg PO QDAY 06/24/17 levothyroxine 150 mcg capsule 150 mcg PO QDAY cap 06/24/17 lorazepam 0.5 mg tablet 0.5 mg PO DAILY PRN PRN tab 06/24/17 paroxetine 20 mg tablet 20 mg PO QDAY 06/24/17 thiamine HCl (vitamin B1) 100 mg tablet 50 mg PO QDAY tab 06/24/17 atorvastatin 80 mg tablet 80 mg PO QDAY 06/28/17 metformin 500 mg tablet 500 mg PO DAILY tab 07/26/17 Lisinopril 10 mg PO BID 11/02/17 Omeprazole 20 mg PO QDAY 11/02/17 Glimepiride [Amaryl] 2 mg PO DAILY #30 tab 08/29/18 Guaifenesin [Mucinex] 1,200 mg PO BID #14 tab.er.12h 08/29/18 Prednisone 10 mg PO UD #30 tab 08/29/18 isosorbide mononitrate ER 60 mg tablet,extended release 24 hr 30 mg PO BID 10/27/18 clopidogrel 75 mg tablet 75 mg PO DAILY #1 tab 11/30/18 carvedilol 3.125 mg tablet 3.125 mg PO BID #60 tab 12/06/18 Other Amb Orders: Phase II, Outpatient Cardiac Rehab Location: None Selected Primary Care Physician: Xander Piedra III, MD [Primary Care Provider] - Please Follow Up With: Dwaine Savage - Nurse Practitioner When: December 22 2018 at 2:30 PM Additional Instructions: You will continue with Aspirin and Plavix therapy. If anyone asks you to stop your Plavix medication, please call the [facility] at [phone]. You will remain on Plavix for at least one year. You are scheduled for a post hospital follow-up with Dwaine Savage, Nurse Practitioner, on December 22 at 2:30 PM at the [facility]. If you have any questions or concerns, please call the [facility]. Disposition: Home Minutes spent on discharge:: 45 Patient Condition:: Stable Medical Necessity - Tobacco Use Smoking Status: Current every day smoker Meaningful Use Info Meaningful Use Diagnoses (Choose all that apply): None applicable
== END 2018-12-07 12:00 | disposition home or self-care (01) ==
LOC: CLSP 07:57 → ICU 12:46
PROVIDERS: Family Provider Family Medicine; PCP Family Medicine; Referring Provider Internal Medicine Cardiovascular Disease; Visit Provider Internal Medicine Cardiovascular Disease
DX: I25.118 Atherosclerotic heart disease of native coronary artery with other forms of angina pectoris (principal); E78.5 Hyperlipidemia, unspecified; Z95.5 Presence of coronary angioplasty implant and graft; Z79.82 Long term (current) use of aspirin; Z79.899 Other long term (current) drug therapy; Z79.84 Long term (current) use of oral hypoglycemic drugs; Z79.52 Long term (current) use of systemic steroids; Z79.02 Long term (current) use of antithrombotics/antiplatelets; Z85.21 Personal history of malignant neoplasm of larynx; Z85.51 Personal history of malignant neoplasm of bladder; E11.51 Type 2 diabetes mellitus with diabetic peripheral angiopathy without gangrene; I10 Essential (primary) hypertension; F17.210 Nicotine dependence, cigarettes, uncomplicated; R94.39 Abnormal result of other cardiovascular function study; J44.9 Chronic obstructive pulmonary disease, unspecified; E03.9 Hypothyroidism, unspecified; Z82.49 Family history of ischemic heart disease and other diseases of the circulatory system; G47.33 Obstructive sleep apnea (adult) (pediatric); R42 Dizziness and giddiness; R61 Generalized hyperhidrosis; I49.3 Ventricular premature depolarization; I07.1 Rheumatic tricuspid insufficiency; I65.23 Occlusion and stenosis of bilateral carotid arteries
CPT/HCPCS: 36415; 80048; 80061; 82962; 85027; 85347; 85610; 85730; 92921; 92928; 93005; 93458; 94640; J7030; J7040; Q9967; C1725; C1769; C1874; C1887; C1894; C9600

== ENCOUNTER → 2019-06-07 16:42 | Outpatient (CLI) | payer MEDICARE, SELFPAY ==
[2017-08-02 11:16] VITALS: BMI 26.0
[2018-12-22 14:37] VITALS: BMI 24.9
--- NOTE | 2019-06-07 16:44 | CT_ITS ---
STUDY: CT SOFT TISSUE NECK WITH CONTRAST REASON FOR EXAM: Male, 79 years old. S/P VOCAL CORD CA W/ RADIATION TX -- HOARSE VOICE RADIATION DOSAGE (If Supplied By Facility): CTDIvol = ( 20.05 ) mGy, DLP = ( 636.04 ) mGycm TECHNIQUE: The patient was scanned in a multi-detector CT scanner. High resolution transaxial imaging was performed following intravenous administration of IV 75mL Isovue-300. Sagittal and coronal images were reconstructed. Individualized dose optimization techniques were used for this CT. 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 There are no exophytic mucosal lesions. The substance of the vocal cords is suboptimally evaluated due to motion artifact. Paralaryngeal and extralaryngeal space is unremarkable. The airway is patent. There is post radiation change. There are surgical changes due to right carotid endarterectomy. Right common carotid, internal and external carotid arteries are patent. There is no cervical lymphadenopathy. Craniocervical junction and cervical spine are intact and aligned with mild to moderate spondylotic thecal sac compression at C5-C6. 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 Lung apices are clear. Superior mediastinal contents are normal. There is no abnormality along the right recurrent laryngeal nerve. CT/Soft Tissue Neck WITH Contrast IMPRESSION: 1. Right vocal cord paresis/paralysis and/or posttreatment change. 2. No exophytic pharyngeal mucosal lesion. 3. No cervical lymphadenopathy. 4. Remote right endarterectomy. 5. 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 Electronically Signed: Reynaldo Marquez, at 19:01 EST Tel , Service support ,
[2019-06-07 16:55] LABS: CREATININE FINGERSTICK 1.3 mg/dL (0.70-1.30)
== END ==
PROVIDERS: Family Provider Family Medicine; PCP Family Medicine; Referring Provider Otolaryngology Otolaryngology/Facial Plastic Surgery; Visit Provider Otolaryngology Otolaryngology/Facial Plastic Surgery
DX: C32.0 Malignant neoplasm of glottis (principal); Z92.3 Personal history of irradiation
CPT/HCPCS: 70491; Q9967

== ENCOUNTER 2021-08-26 15:21 | Emergency (ER) | payer MEDICARE, SELFPAY ==
[2017-08-02 11:16] VITALS: BMI 26.0
[2021-08-26] VITALS (8 sets, daily range): BP systolic 125–199; BP diastolic 67–87; PULSE 57–77; RESP 16–23; TEMP 36.3–36.9; O2SAT 95–99; BMI 24.5
--- NOTE | 2021-08-26 16:04 | EDS_ITS ---
HPI History of Present Illness Chief Complaint: Shortness of Breath Informant: patient Onset/Context/Timing Onset: Yesterday Context: gradual Timing: Continuous Quality: Positive for Orthopnea and PND Worsened by: Lying flat Relieved by: - (Sitting up) Associated Symptoms cough and yellow sputum; Negative for rhinorrhea, ear pain, fever, sore throat or chills Chest Pain: Positive for None Narrative Narrative: Patient presents with shortness of breath that became worse last night. Patient states it has gradually gotten worse. Patient states he woke up in the middle the night and had to sit up to breathe. Patient states he slept upright in the chair the rest of the evening. Patient states he has not tried to lay flat again. Patient admits to a cough with some yellow sputum. Patient denies any fevers or chills. Patient denies any chest pain. Patient denies any rhinorrhea. [facility] Medical History (Updated 08/26/21 @ 19:[address] Amadou De La O, DO) Acute bronchitis Ataxia Atherosclerotic heart disease of [place] coronary artery with other forms of angina pectoris Carotid stenosis, right Chest pain COPD (chronic obstructive pulmonary disease) Diabetes mellitus, type II Emphysema lung Frequent headaches Hyperlipidemia Hypothyroidism Pneumonia Poor balance Pulmonary nodules Sinus bradycardia Snoring Tobacco use disorder Venous insufficiency (chronic) (peripheral) Home Medications albuterol sulfate 2.5 mg INHALATION BID ml 06/24/17 [History Last Taken 08/26/18] aspirin 81 mg tablet,delayed release 81 mg PO QDAY 06/24/17 [History Last Taken 12/06/18] budesonide-formoterol HFA 160 mcg-4.5 mcg/actuation aerosol inhaler 2 puff INHALATION Q12H 06/24/17 [History Last Taken 08/26/18] cyanocobalamin (vitamin B-12) 1,000 mcg tablet 1,000 mcg PO QDAY 06/24/17 [History Last Taken 08/26/18] levothyroxine 150 mcg capsule 150 mcg PO QDAY cap 06/24/17 [History Last Taken 12/06/18] lorazepam 0.5 mg tablet 0.5 mg PO DAILY PRN PRN tab 06/24/17 [History Last Taken 08/26/18] paroxetine HCl 20 mg tablet 20 mg PO QDAY 06/24/17 [History Last Taken 08/26/18] atorvastatin 80 mg tablet 80 mg PO QDAY 06/28/17 [History Last Taken 08/26/18] lisinopril 10 mg PO BID 11/02/17 [History Last Taken 12/06/18] glimepiride 2 mg PO DAILY #30 tab 08/29/18 [Rx Last Taken Unknown] clopidogrel 75 mg tablet 75 mg PO DAILY #1 tab 11/30/18 [Rx Last Taken 12/06/18] guaifenesin 1,200 mg tablet, extended release 12 hr 1,200 mg PO BID PRN tab.er. 12h 12/22/18 [History Last Taken Unknown] isosorbide mononitrate 60 mg tablet,extended release 24 hr 60 mg PO BID tab 12/22/18 [History Last Taken Unknown] metformin 1,000 mg tablet 1,000 mg PO DAILY 12/22/18 [History Last Taken Unknown] omeprazole 40 mg capsule,delayed release 40 mg PO QDAY cap 12/22/18 [History Last Taken Unknown] thiamine HCl (vitamin B1) 250 mg tablet 250 mg PO DAILY 12/22/18 [History Last Taken Unknown] ipratropium-albuterol 3 ml INHALATION Q4H PRN #90 ml 08/26/21 [Rx Last Taken Unknown] prednisone 60 mg PO DAILY #15 tablet 08/26/21 [Rx Last Taken Unknown] Allergy/AdvReac Type Severity Reaction Status Date / Time No Known Allergies Allergy Verified 08/26/21 15:25 Family History Father , age 61 Myocardial infarction CAD (coronary artery disease) Sudden cardiac Mother , age 80 Congestive heart failure Sister , cause unknown, suspected CVA No problems noted. Surgical History History of colonoscopy History of esophagogastroduodenoscopy History of left heart catheterization History of right-sided carotid endarterectomy (~11/02/17) Stented coronary artery Social History Smoking Status: Current every day smoker tobacco type: cigarettes alcohol intake: never substance use type: does not use caffeine: Yes Type: coffee Number of servings: 6 what type of physical activity do you participate in: none seatbelt use: always do you feel safe at home: Yes ROS ROS ED Constitutional Constitutional ED: Denies chills or fever(s) Eyes Eyes: Reports blurry vision; Denies diplopia ENT ENT ED: Denies rhinorrhea or sore throat Cardiovascular Cardiovascular: Denies chest pain or palpitations Respiratory/Chest Respiratory/Chest: Reports cough and dyspnea Gastrointestinal Gastrointestinal: Denies nausea or vomiting Genitourinary Genitourinary ED: Reports urinary frequency; Denies dysuria or hematuria Musculoskeletal Musculoskeletal: Denies back pain or neck pain Integumentary Denies abscess or rash Neurologic Neurologic: Denies headache(s) or weakness Allergic/Immunologic Allergic/Immunologic ED: Denies mouth swelling or urticaria EXAM Physical Exam Const Vital Signs: 08/26/21 15:23 08/26/21 15:36 08/26/21 16:24 Temperature 97.4 F L Temperature Source Temporal Pulse Rate 74 75 65 Respiratory Rate 16 18 23 H Respiratory Effort Short of Breath Respiratory Depth Shallow Respiratory Pattern Normal Bradypnea Blood Pressure 138/79 H 199/68 H Blood Pressure Mean 98 111 Pulse Ox 99 97 Oxygen Delivery Method Room Air Room Air 08/26/21 16:32 08/26/21 17:47 08/26/21 18:07 Temperature Temperature Source Pulse Rate 67 58 L 57 L Respiratory Rate 20 H 16 22 H Respiratory Effort Respiratory Depth Respiratory Pattern Blood Pressure 125/67 H 130/70 H 157/72 H Blood Pressure Mean 86 90 100 Pulse Ox 95 97 95 Oxygen Delivery Method Room Air Room Air Room Air 08/26/21 19:03 Temperature Temperature Source Pulse Rate 58 L Respiratory Rate 16 Respiratory Effort Respiratory Depth Respiratory Pattern Blood Pressure 140/73 H Blood Pressure Mean 95 Pulse Ox 96 Oxygen Delivery Method Room Air Positive well nourished and well developed General Appearance ED: well developed and NAD HEENT Reports moist mucous membranes Neck supple and no JVD Resp normal respiratory effort Auscultation: rhonchi throughout Cardio regular rate, regular rhythm and no murmurs GI normal to inspection, nondistended, normoactive bowel sounds and non-tender Palpation: soft Extremity normal to inspection General Extremety ED: Negative for edema or tenderness General Extremity: Negative for edema Neuro oriented x3, CN's II-XII intact bilaterally and no sensory deficits noted Sensorium / Orientation: alert Motor Exam: strength 5/5 throughout Psych mental status grossly normal Skin no rashes or lesions noted MDM MDM MDM Narrative Medical decision making narrative: Patient was given a DuoNeb aerosol here. Patient felt better after this. EKG was obtained. On my interpretation, shows sinus bradycardia with rate of 56. [place] interval, QRS interval, and QTc intervals were normal. [place] was normal. There are no acute ST or T wave changes. Portable 1 view chest x-ray was obtained. On my interpretation, lung vasquez are clear. There is normal cardiac silhouette. Bony thorax is normal. There is no acute process noted. Radiologist also interpreted the x-ray and agrees. CBC was within normal limits. Comprehensive metabolic profile was within normal limits. B-natriuretic peptide was normal. Troponin was normal. Patient felt better on reevaluation. Patient states that the DuoNeb aerosol seemed to help better than his home albuterol aerosols. Patient was given prescription for DuoNeb aerosols and a prescription for prednisone. Patient was instructed to follow-up with his primary care physician in 3 to 5 days. Patient understood and was agreeable with the plan. All questions were answered. Lab Data Attestation: I reviewed the patient's lab results. Labs: Laboratory Results - last 24 hr 08/26/21 08/26/21 08/26/21 16:25 16:25 16:25 WBC 8.7 RBC 4.61 Hgb 13.3 Hct 41.6 MCV 90.2 MCH 28.9 MCHC 32.0 RDW Std Deviation 48.8 H RDW Coeff of Javier 14.8 H Plt Count 250 MPV 10.2 Immature Gran % (Auto) 0.500 Neut % (Auto) 79.0 H Lymph % (Auto) 11.4 L [place] % (Auto) 7.2 Eos % (Auto) 1.4 Baso % (Auto) 0.5 Absolute Neuts (auto) 6.9 Absolute Lymphs (auto) 0.99 Nucleated RBC % 0 Sodium 138 Potassium 4.4 Chloride 105 Carbon Dioxide 28.0 Anion Gap 5 BUN 23 H Creatinine 1.28 Estim Creat Clear Calc 49.68 Est GFR (MDRD) Af Amer 69 Est GFR (MDRD) Non-Af 57 L BUN/Creatinine Ratio 18.0 Glucose 244 H Calcium 9.3 Total Bilirubin 0.40 AST 13 L ALT 20 Alkaline Phosphatase 87 Troponin I High Sens B-Natriuretic Peptide 13.2 Total Protein 6.9 Albumin 3.3 Globulin 3.6 Albumin/Globulin Ratio 0.9 03/23/22 18:38 WBC RBC Hgb Hct MCV MCH MCHC RDW Std Deviation RDW Coeff of Javier Plt Count MPV Immature Gran % (Auto) Neut % (Auto) Lymph % (Auto) [place] % (Auto) Eos % (Auto) Baso % (Auto) Absolute Neuts (auto) Absolute Lymphs (auto) Nucleated RBC % Sodium Potassium Chloride Carbon Dioxide Anion Gap BUN Creatinine Estim Creat Clear Calc Est GFR (MDRD) Af Amer Est GFR (MDRD) Non-Af BUN/Creatinine Ratio Glucose Calcium Total Bilirubin AST ALT Alkaline Phosphatase Troponin I High Sens 4 B-Natriuretic Peptide Total Protein Albumin Globulin Albumin/Globulin Ratio Radiography Chest X-Ray - ED: 1 View, Read by ED Physician, Read by Radiologist, Normal and No Acute Disease Diagnostic Testing: Clinical Impression(s) from Imaging Studies Chest X-Ray 08/26/21 16:39 IMPRESSION: Normal x-ray examination of the chest. Electronically Signed: Freeman Patel MD at 17:06 EDT , Discharge Plan Triage Chief Complaint: Shortness of Breath ED Provider: Amadou De La O Dx/Rx/DC Orders Clinical Impression: Dyspnea Instructions: ED Dyspnea Prescriptions: New ipratropium-albuterol 0.5 mg-3 mg(2.5 mg base)/3 mL solution for nebulization 3 ml inhalation Q4H PRN (Reason: shortness of breath) Qty: 90 RF: 0 prednisone 20 MG tablet 60 mg PO DAILY Qty: 15 RF: 0 No Action lorazepam 0.5 mg tablet 0.5 mg PO DAILY PRN PRN (Reason: anxiety) RF: 0 levothyroxine 150 mcg capsule 150 mcg capsule 150 mcg PO QDAY RF: 0 albuterol sulfate 2.5 mg /3 mL (0.083 %) solution for nebulization 2.5 mg INHALATION BID RF: 0 budesonide-formoterol [Symbicort] 160-4.5 mcg/actuation HFA aerosol inhaler 2 puff INHALATION Q12H RF: 0 paroxetine HCl [Paxil] 20 mg tablet 20 mg PO QDAY RF: 0 aspirin [Adult Aspirin Regimen] 81 mg tablet,delayed release (DR/EC) 81 mg PO QDAY RF: 0 cyanocobalamin (vitamin B-12) [Vitamin B-12] 1,000 mcg tablet 1,000 mcg PO QDAY RF: 0 atorvastatin 80 mg tablet 80 mg PO QDAY RF: 0 guaifenesin 1,200 mg tablet extended release 12hr 1,200 mg PO BID PRNRF: 0 metformin 1,000 mg tablet 1,000 mg PO DAILY RF: 0 thiamine HCl (vitamin B1) 250 mg tablet 250 mg PO DAILY RF: 0 lisinopril 20 MG tablet 10 mg PO BID RF: 0 isosorbide mononitrate 60 mg tablet extended release 24 hr 60 mg PO BID RF: 0 omeprazole 40 mg capsule,delayed release(DR/EC) 40 mg PO QDAY RF: 0 glimepiride 1 MG tablet 2 mg PO DAILY Qty: 30 RF: 0 clopidogrel [Plavix] 75 mg tablet 75 mg PO DAILY Qty: 1 RF: 0 Primary Care Provider: Haider Maharaj NP Referrals: Haider Maharaj NP, [facility] [Primary Care Provider] - 3-5 Days Disposition Disposition: Home, Self Care
[2021-08-26] MEDS: Ipratropium/Albuterol Sulfate 3 ML AMPUL.NEB INHALATION (16:24)
[2021-08-26 16:35] LABS: Absolute Lymphocyte Count 0.99 X10^3/uL (0.83-4.51); Absolute Neutrophil Count 6.9 X10^3/uL (2.0-7.7); Basophil# 0.04 X10^3/uL; Basophil% 0.5 % (0-1); Eosinophil# 0.12 X10^3/uL; Eosinophils% 1.4 % (0-5); Hematocrit 41.6 % (40-54); Hemoglobin 13.3 g/dL (13.0-16.5); Lymphocyte # 0.99 X10^3/ul (0.83-4.51); Lymphocyte % 11.4 % (19-41); Mean Corpuscular Hgb 28.9 pg (27.0-32.0); Mean Corpuscular Volume 90.2 fL (80-94); Mean Platelet Vol. 10.2 fl (6.2-12.0); Monocyte# 0.62 X10^3/uL; Monocyte% 7.2 % (0-10); NRBC Flagged by Analyzer 0 % (0-5); Neutrophil # 6.85 X10^3/uL (2.7-7.7); Platelet Count 250 K/mm3 (150-450); RBC Distribution Width CV 14.8 % (11.6-14.6); RBC Distribution Width SD 48.8 fl (35.1-43.9); Red Blood Count 4.61 M/mm3 (4.6-6.2); White Blood Count 8.7 K/mm3 (4.4-11.0)
--- NOTE | 2021-08-26 16:39 | RAD_ITS ---
STUDY: X-RAY CHEST REASON FOR EXAM: Male, 81 years old. Dyspnea TECHNIQUE: Single AP portable view of the chest. COMPARISON: 08/27/2018 FINDINGS: The lungs are clear and expanded. There is no demonstrated pleural abnormality. Normal size heart. Normal mediastinum and zuhair. Normal visualized pulmonary arteries. Normal visualized aortic arch and descending thoracic aorta. Normal visualized thoracic spine. Normal visualized ribs, clavicles, and shoulders. There is no demonstrated abnormality of the visualized soft tissue structures of the upper abdomen. RAD/Chest 1 View (Portable) IMPRESSION: Normal x-ray examination of the chest. Electronically Signed: Freeman Patel MD at 17:06 EDT ,
[2021-08-26 16:51] LABS: ALB/GLOB Ratio 0.9 RATIO (0.9-2.4); AST(SGOT) 13 U/L (15-37); Alanine Aminotransfer ALT/SGPT 20 U/L (16-61); Albumin, Serum 3.3 g/dL (3.2-5.0); Alkaline Phosphatase 87 U/L (45-117); Anion Gap 5 (5-15); BUN 23 mg/dL (7-18); Calcium,Total 9.3 mg/dL (8.5-10.1); Chloride 105 mmol/L (98-107); Creatinine, Serum 1.28 mg/dL (0.70-1.30); EST Glomerular Filtration Rate 57 mL/min (>60); Est Glom Filt Rate - Afr Amer 69 mL/min (>60); Estimated Creatinine Clearance 49.68 ml/min; Globulin 3.6 g/dL (2.2-4.2); Glucose 244 mg/dL (74-106); Potassium 4.4 mmol/L (3.5-5.1); Protein, Total 6.9 g/dL (6.4-8.2); Sodium Level 138 mmol/L (136-145)
--- NOTE | 2021-08-26 17:36 | EKG12_ITS ---
Test Reason : SOB Blood Pressure : / mmHG Vent. Rate : 056 BPM Atrial Rate : 056 BPM P-R Int : 162 ms QRS Dur : 072 ms QT Int : 426 ms P-R-T Axes : 063 063 063 degrees QTc Int : 411 ms Sinus bradycardia Otherwise normal ECG Confirmed by MALIKA MAO, LESLIE ([id number]), society editor ADDIE SHEEHAN ([id number]) on 08/28/2021 8:50:48 AM Referred By: LUZ Confirmed By:LESLIE DALY MD
[2021-08-26 18:12] LABS: BNP,B-Type NATRIURETIC PEPTIDE 13.2 pg/mL (0-100)
[2021-08-26 19:09] LABS: Troponin-I HS 4 pg/mL (3.0-78.0)
--- NOTE | 2021-09-02 14:55 | CM.ED ---
ER RNCM DC F/u Call: Seen in ER 08/26/21 Called patient listed number on demographics. Phone was answered but was not able to connect. Unsuccessful f/u call. ANDRA Craft
== END 2021-08-26 20:05 | disposition home or self-care (01) ==
PROVIDERS: Emergency Provider Emergency Medicine; PCP Nurse Practitioner Family; Visit Provider Emergency Medicine
DX: R06.00 Dyspnea, unspecified (principal); I25.10 Atherosclerotic heart disease of native coronary artery without angina pectoris; F17.210 Nicotine dependence, cigarettes, uncomplicated; Z95.5 Presence of coronary angioplasty implant and graft
CPT/HCPCS: 71045; 80053; 83880; 84484; 85025; 87428; 93005; 94640; 99284

== ENCOUNTER 2022-03-12 16:46 | Outpatient (CLI) | payer MEDICARE, MEDICAID, SELFPAY ==
[2017-08-02 11:16] VITALS: BMI 26.0
[2022-03-12 17:12] LABS: Absolute Lymphocyte Count 1.24 X10^3/uL (0.83-4.51); Absolute Neutrophil Count 5.7 X10^3/uL (2.0-7.7); Basophil# 0.04 X10^3/uL; Basophil% 0.5 % (0-1); Eosinophil# 0.12 X10^3/uL; Eosinophils% 1.6 % (0-5); Hematocrit 39.3 % (40-54); Hemoglobin 12.7 g/dL (13.0-16.5); Lymphocyte # 1.24 X10^3/ul (0.83-4.51); Lymphocyte % 16.2 % (19-41); Mean Corp Hgb Conc 32.3 g/dL (32-36); Mean Corpuscular Hgb 29.8 pg (27.0-32.0); Mean Corpuscular Volume 92.3 fL (80-94); Mean Platelet Vol. 9.6 fl (6.2-12.0); Monocyte# 0.59 X10^3/uL; Monocyte% 7.7 % (0-10); NRBC Flagged by Analyzer 0 % (0-5); Neutrophil # 5.65 X10^3/uL (2.7-7.7); Neutrophil % 73.7 % (47-70); Platelet Count 239 K/mm3 (150-450); RBC Distribution Width CV 13.4 % (11.6-14.6); RBC Distribution Width SD 45.5 fl (35.1-43.9); Red Blood Count 4.26 M/mm3 (4.6-6.2); White Blood Count 7.7 K/mm3 (4.4-11.0)
[2022-03-12 17:30] LABS: Hemoglobin A1c 8.1 % (3.8-5.6)
[2022-03-12 17:39] LABS: Anion Gap 6 (5-15); BUN 14 mg/dL (7-18); BUN/Creat Ratio 15.4 RATIO (10-20); Calcium,Total 9.1 mg/dL (8.5-10.1); Chloride 104 mmol/L (98-107); Cholesterol 98 mg/dL (200); Creatinine, Serum 0.91 mg/dL (0.70-1.30); EST Glomerular Filtration Rate 85 mL/min (>60); Est Glom Filt Rate - Afr Amer 102 mL/min (>60); Glucose 134 mg/dL (74-106); High Density Lipoprotein 48 mg/dL; Potassium 3.9 mmol/L (3.5-5.1); Sodium Level 141 mmol/L (136-145); Triglycerides 60 mg/dL; Very Low Density Lipoprotein 12 mg/dL (5-40)
== END 2022-03-12 23:59 | disposition home or self-care (01) ==
LOC: LAB 16:51
PROVIDERS: PCP Family Medicine; Visit Provider Family Medicine
DX: J44.9 Chronic obstructive pulmonary disease, unspecified (principal); E78.5 Hyperlipidemia, unspecified; I25.10 Atherosclerotic heart disease of native coronary artery without angina pectoris; I10 Essential (primary) hypertension
CPT/HCPCS: 36415; 80048; 80061; 83036; 85025

== ENCOUNTER 2022-03-19 06:07 | Emergency (ER) | payer MEDICARE, MEDICAID, SELFPAY ==
[2017-08-02 11:16] VITALS: BMI 26.0
[2022-03-19 06:10] VITALS: TEMP 36.6; BMI 23.8
--- NOTE | 2022-03-19 07:36 | EX.ED.DYSGE1 ---
HPI History of Present Illness Chief Complaint: General Illness Detail of Chief Complaint: Trach dislodged Informant: patient Narrative Narrative: Patient presents to the [facility] after his trach dislodged proximally 20 minutes prior to arrival. 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 He had a tracheostomy placed 3 months ago. It was dislodged this morning. Patient has no respiratory distress at this time. Reportedly staff at the intermediate tried to replace it without success. [facility] Medical History (Updated 03/19/22 @ 08:[address] Sharmaine Francis MD) Acute bronchitis Ataxia Atherosclerotic heart disease of [place] coronary artery with other forms of angina pectoris Carotid stenosis, right Chest pain COPD (chronic obstructive pulmonary disease) Diabetes mellitus, type II Emphysema lung Frequent headaches Hyperlipidemia Hypothyroidism Pneumonia Poor balance Pulmonary nodules Sinus bradycardia Snoring Tobacco use disorder Venous insufficiency (chronic) (peripheral) Home Medications albuterol sulfate 2.5 mg/3 mL (0.083 %) solution for nebulization 2.5 mg inhalation BID breathing 06/24/17 [History Last Taken 08/26/18] aspirin 81 mg tablet,delayed release (Adult Aspirin Regimen) 81 mg PO QDAY heart health 06/24/17 [History Last Taken 12/06/18] budesonide-formoterol HFA 160 mcg-4.5 mcg/actuation aerosol inhaler (Symbicort) 2 puff inhalation Q12H SOB 06/24/17 [History Last Taken 08/26/18] cyanocobalamin (vitamin B-12) 1,000 mcg tablet (Vitamin B-12) 1,000 mcg PO QDAY supplement 06/24/17 [History Last Taken 08/26/18] levothyroxine 150 mcg capsule 150 mcg PO QDAY thyroid 06/24/17 [History Last Taken 12/06/18] lorazepam 0.5 mg tablet 0.5 mg PO DAILY PRN PRN anxiety 06/24/17 [History Last Taken 08/26/18] paroxetine HCl 20 mg tablet (Paxil) 20 mg PO QDAY mood 06/24/17 [History Last Taken 08/26/18] atorvastatin 80 mg tablet 80 mg PO QDAY cholesterol 06/28/17 [History Last Taken 08/26/18] lisinopril 20 mg tablet 10 mg PO BID blood pressure 11/02/17 [History Last Taken 12/06/18] glimepiride 1 mg tablet 2 mg PO DAILY #30 tabs 08/29/18 [Rx Last Taken Unknown] clopidogrel 75 mg tablet (Plavix) 75 mg PO DAILY #1 TAB 11/30/18 [Rx Last Taken 12/06/18] guaifenesin 1,200 mg tablet, extended release 12 hr 1,200 mg PO BID PRN 12/22/18 [History Last Taken Unknown] isosorbide mononitrate 60 mg tablet,extended release 24 hr 60 mg PO BID blood pressure 12/22/18 [History Last Taken Unknown] metformin 1,000 mg tablet 1,000 mg PO DAILY 12/22/18 [History Last Taken Unknown] omeprazole 40 mg capsule,delayed release 40 mg PO QDAY reflux 12/22/18 [History Last Taken Unknown] thiamine HCl (vitamin B1) 250 mg tablet 250 mg PO DAILY 12/22/18 [History Last Taken Unknown] ipratropium 0.5 mg-albuterol 3 mg (2.5 mg base)/3 mL nebulization soln 3 ml inhalation Q4H PRN shortness of breath #90 mL 08/26/21 [Rx Last Taken Unknown] prednisone 20 mg tablet 60 mg PO DAILY #15 TABLETS 08/26/21 [Rx Last Taken Unknown] Allergy/AdvReac Type Severity Reaction Status Date / Time No Known Allergies Allergy Verified 03/19/22 06:17 Family History Father , age 61 Myocardial infarction CAD (coronary artery disease) Sudden cardiac Mother , age 80 Congestive heart failure Sister , cause unknown, suspected CVA No problems noted. Surgical History History of colonoscopy History of esophagogastroduodenoscopy History of left heart catheterization History of right-sided carotid endarterectomy (~11/02/17) Stented coronary artery Social History Smoking Status: Former smoker alcohol intake: never substance use type: does not use caffeine: Yes Type: coffee Number of servings: 6 what type of physical activity do you participate in: none seatbelt use: always do you feel safe at home: Yes ROS ROS ED Constitutional Constitutional ED: Denies chills or fever(s) Eyes Eyes: Denies change in vision or discharge from eye(s) ENT ENT ED: Denies discharge from eye(s), rhinorrhea or sore throat Cardiovascular Cardiovascular: Denies chest pain or palpitations Respiratory/Chest Respiratory/Chest: Denies cough or dyspnea Gastrointestinal Gastrointestinal: Denies abdominal pain, diarrhea, nausea or vomiting Musculoskeletal Musculoskeletal: Denies back pain or extremity pain Integumentary Denies Abrasions or rash Neurologic Neurologic: Denies headache(s) or weakness Allergic/Immunologic Allergic/Immunologic ED: Denies lip swelling or urticaria EXAM Physical Exam Const Vital Signs: 03/19/22 06:10 03/19/22 06:19 03/19/22 08:05 Temperature 97.8 F Temperature Source Temporal Pulse Rate 67 Respiratory Rate 18 Respiratory Effort Normal Respiratory Pattern Normal Pulse Ox 97 Oxygen Delivery Method Room Air Positive well nourished and well developed General Appearance ED: well developed HEENT Reports normocephalic and head/scalp atraumatic Eyes PERRL and EOMs intact bilaterally Neck supple Neck Narrative: Tracheostomy site with no active bleeding. Chest Wall inspection of chest normal and palpation of chest normal Resp normal respiratory effort and clear to auscultation bilaterally Cardio regular rate and regular rhythm GI normal to inspection, nondistended, normoactive bowel sounds Palpation: soft Extremity normal to inspection Neuro oriented x3 and no sensory deficits noted Sensorium / Orientation: alert Motor Exam: strength 5/5 throughout Psych mental status grossly normal Skin no rashes or lesions noted MDM MDM MDM Narrative Medical decision making narrative: Attempted to place both a 6 and 4 sized trach without success. I was able to easily place a bougie, however a 4 uncuffed trach would not slide through the opening in the skin. Dr. Lechuga did present to bedside. We spoke with Dr. Tarun Muse who will be in to evaluate the patient. I was able to pull up his surgical note from [facility] in November when this was initially placed. Dr. Brambila presented to bedside. He was able to get a 4 uncuffed trach tube in place. This was then suctioned and exchanged out for a size 6. Patient will be [facility]. He will be given Dr. Brambila's information for follow-up as needed. It does appear he has been seen in that office previously. Discharge Plan Triage Chief Complaint: General Illness ED Provider: Sharmaine Francis Dx/Rx/DC Orders Clinical Impression: Acute tracheostomy management Instructions: ED Tracheostomy Care Prescriptions: No Action lorazepam 0.5 mg tablet 0.5 mg PO DAILY PRN PRN (Reason: anxiety) levothyroxine 150 mcg capsule 150 mcg capsule 150 mcg PO QDAY albuterol sulfate 2.5 mg /3 mL (0.083 %) solution for nebulization 2.5 mg INHALATION BID budesonide-formoterol [Symbicort] 160-4.5 mcg/actuation HFA aerosol inhaler 2 puff INHALATION Q12H paroxetine HCl [Paxil] 20 mg tablet 20 mg PO QDAY aspirin [Adult Aspirin Regimen] 81 mg tablet,delayed release (DR/EC) 81 mg PO QDAY cyanocobalamin (vitamin B-12) [Vitamin B-12] 1,000 mcg tablet 1,000 mcg PO QDAY atorvastatin 80 mg tablet 80 mg PO QDAY guaifenesin 1,200 mg tablet extended release 12hr 1,200 mg PO BID PRN metformin 1,000 mg tablet 1,000 mg PO DAILY thiamine HCl (vitamin B1) 250 mg tablet 250 mg PO DAILY lisinopril 20 MG tablet 10 mg PO BID isosorbide mononitrate 60 mg tablet extended release 24 hr 60 mg PO BID Rx Instructions: swallow whole with glass of water; do not crush/chew /dissolve /cut/break omeprazole 40 mg capsule,delayed release(DR/EC) 40 mg PO QDAY Rx Instructions: swallow whole; do not crush, chew, dissolve, cut, break glimepiride 1 MG tablet 2 mg PO DAILY Qty: 30 0RF Rx Instructions: cut down to 1 mg daily if FS is less than 180 mg/dl ipratropium-albuterol 0.5 mg-3 mg(2.5 mg base)/3 mL solution for nebulization 3 ml inhalation Q4H PRN (Reason: shortness of breath) Qty: 90 0RF prednisone 20 MG tablet 60 mg PO DAILY Qty: 15 0RF clopidogrel [Plavix] 75 mg tablet 75 mg PO DAILY Qty: 1 0RF Primary Care Provider: Arnaud Garg Referrals: Tarun Muse MD [Med Staff - Active Staff] - As Needed Arnaud Garg MD [Primary Care Provider] - Disposition Disposition: Home, Self Care
--- NOTE | 2022-03-19 08:04 | PN_ITS ---
Progress Note Asked to see the patient in the request of Dr. Esquivel for atrial tracheotomy tube problem. History of present illness: Patient is an 81-year-old white male who underwent tracheotomy for bilateral vocal cord paralysis. [facility], the tracheotomy tube was coughed out during a trach tie change. The staff in the emergency room could not replace the tube. Physical exam: Patient is awake alert no acute distress. He has granulation tissue around the stoma. He is breathing through his mouth with obvious inspiratory stridor. His sats are in the 90s. I first placed a #4 obturator into the tracheotomy stoma. This passed with ease. Next I placed a #4 cuffless tracheotomy tube. I left this in approximately 5 minutes and suction the bloody mucus from the opening. Once the bleeding had stopped the number for was removed, a #6 cuffless tracheotomy tube was placed. The inner cannula was secured and trach ties were placed around the patient's neck. Bloody mucus was suctioned from the opening. He was able to phonate with finger occlusion and eventually the Passy-Shine valve was placed. Assessment: Bilateral vocal cord paralysis status post tracheotomy. The tracheotomy was displaced it is now been replaced. Plan: [facility].
[2022-03-19 08:05] VITALS: PULSE 67; RESP 18; O2SAT 97
--- NOTE | 2022-03-19 08:37 | NURSING ---
CALLED FOR WHEELCHAIR RIDE. WITH IN THE HOUR
== END 2022-03-19 09:00 | disposition home or self-care (01) ==
PROVIDERS: Emergency Provider Emergency Medicine; PCP Family Medicine; Visit Provider Emergency Medicine
DX: J95.09 Other tracheostomy complication (principal); J43.9 Emphysema, unspecified; E11.9 Type 2 diabetes mellitus without complications; J38.02 Paralysis of vocal cords and larynx, bilateral; I25.10 Atherosclerotic heart disease of native coronary artery without angina pectoris; E78.5 Hyperlipidemia, unspecified; Z87.891 Personal history of nicotine dependence; X58.XXXA Exposure to other specified factors, initial encounter
CPT/HCPCS: 31502; 31720; 99251; 99284; G0463

== ENCOUNTER 2022-05-23 22:02 | Emergency (ER) | payer MEDICARE, MEDICAID, SELFPAY ==
[2017-08-02 11:16] VITALS: BMI 26.0
[2022-05-23 22:04] VITALS: BP 144/89; PULSE 77; RESP 16; TEMP 36.8; O2SAT 100; BMI 21.6
--- NOTE | 2022-05-23 22:23 | EKG12_ITS ---
Test Reason : SOB Blood Pressure : / mmHG Vent. Rate : 072 BPM Atrial Rate : 072 BPM P-R Int : 142 ms QRS Dur : 084 ms QT Int : 400 ms P-R-T Axes : 074 072 069 degrees QTc Int : 438 ms Normal sinus rhythm Normal ECG Confirmed by MALIKA MAO, LESLIE ([id number]), online content editor ADDIE SHEEHAN ([id number]) on 05/26/2022 10:09:15 AM Referred By: Confirmed By:LESLIE DALY MD
--- NOTE | 2022-05-23 22:24 | EDS_ITS ---
HPI History of Present Illness Chief Complaint: Mental Status Change Narrative Narrative: 82-year-old male presenting from the custodial for altered mental status. He was sent because he appears to be confused. He was also reportedly incontinent today of urine at the custodial. This is not normal for him. He is alert and oriented here. He states he felt like he was a little bit short of breath. He states he has COPD but is not coughing. He denies chest pain. He has not had fever or chills. No nausea or vomiting. Patient has a tracheostomy. He does not normally require oxygen except for nighttime when he sleeping. [facility] Medical History Acute bronchitis Ataxia Atherosclerotic heart disease of [place] coronary artery with other forms of angina pectoris Carotid stenosis, right Chest pain COPD (chronic obstructive pulmonary disease) Diabetes mellitus, type II Emphysema lung Frequent headaches Hyperlipidemia Hypothyroidism Pneumonia Poor balance Pulmonary nodules Sinus bradycardia Snoring Tobacco use disorder Venous insufficiency (chronic) (peripheral) Home Medications albuterol sulfate 2.5 mg/3 mL (0.083 %) solution for nebulization 2.5 mg inhalation BID breathing 06/24/17 [History Last Taken 08/26/18] aspirin 81 mg tablet,delayed release (Adult Aspirin Regimen) 81 mg PO QDAY heart health 06/24/17 [History Last Taken 12/06/18] budesonide-formoterol HFA 160 mcg-4.5 mcg/actuation aerosol inhaler (Symbicort) 2 puff inhalation Q12H SOB 06/24/17 [History Last Taken 08/26/18] cyanocobalamin (vitamin B-12) 1,000 mcg tablet (Vitamin B-12) 1,000 mcg PO QDAY supplement 06/24/17 [History Last Taken 08/26/18] levothyroxine 150 mcg capsule 150 mcg PO QDAY thyroid 06/24/17 [History Last Taken 12/06/18] lorazepam 0.5 mg tablet 0.5 mg PO DAILY PRN PRN anxiety 06/24/17 [History Last Taken 08/26/18] paroxetine HCl 20 mg tablet (Paxil) 20 mg PO QDAY mood 06/24/17 [History Last Taken 08/26/18] atorvastatin 80 mg tablet 80 mg PO QDAY cholesterol 01/23/18 [History Last Taken 08/26/18] lisinopril 20 mg tablet 10 mg PO BID blood pressure 11/02/17 [History Last Taken 12/06/18] glimepiride 1 mg tablet 2 mg PO DAILY #30 tabs 08/29/18 [Rx Last Taken Unknown] clopidogrel 75 mg tablet (Plavix) 75 mg PO DAILY #1 TAB 11/30/18 [Rx Last Taken 12/06/18] guaifenesin 1,200 mg tablet, extended release 12 hr 1,200 mg PO BID PRN 12/22/18 [History Last Taken Unknown] isosorbide mononitrate 60 mg tablet,extended release 24 hr 60 mg PO BID blood pressure 12/22/18 [History Last Taken Unknown] metformin 1,000 mg tablet 1,000 mg PO DAILY 12/22/18 [History Last Taken Unknown] omeprazole 40 mg capsule,delayed release 40 mg PO QDAY reflux 12/22/18 [History Last Taken Unknown] thiamine HCl (vitamin B1) 250 mg tablet 250 mg PO DAILY 12/22/18 [History Last Taken Unknown] ipratropium 0.5 mg-albuterol 3 mg (2.5 mg base)/3 mL nebulization soln 3 ml inhalation Q4H PRN shortness of breath #90 mL 08/26/21 [Rx Last Taken Unknown] prednisone 20 mg tablet 60 mg PO DAILY #15 TABLETS 08/26/21 [Rx Last Taken Unknown] Allergy/AdvReac Type Severity Reaction Status Date / Time No Known Allergies Allergy Verified 03/19/22 06:17 Family History Father , age 61 Myocardial infarction CAD (coronary artery disease) Sudden cardiac Mother , age 80 Congestive heart failure Sister , cause unknown, suspected CVA No problems noted. Surgical History History of colonoscopy History of esophagogastroduodenoscopy History of left heart catheterization History of right-sided carotid endarterectomy (~11/02/17) Stented coronary artery Social History Smoking Status: Former smoker alcohol intake: never substance use type: does not use caffeine: Yes Type: coffee Number of servings: 6 what type of physical activity do you participate in: none seatbelt use: always do you feel safe at home: Yes ROS ROS ED Constitutional Constitutional ED: Denies chills, fever(s) or sweats Eyes Eyes: Denies blurry vision or change in vision ENT ENT ED: Denies ear pain or sore throat Cardiovascular Cardiovascular: Denies chest pain, palpitations or racing heartbeat Respiratory/Chest Respiratory/Chest: Reports dyspnea; Denies cough or sputum Gastrointestinal Gastrointestinal: Denies abdominal pain, constipation, diarrhea, nausea or vomiting Genitourinary Genitourinary ED: Denies dysuria, hematuria or urinary frequency Musculoskeletal Musculoskeletal: Denies arthralgias, myalgias or neck pain Integumentary Denies abscess, Abrasions or rash Neurologic Neurologic: Denies headache(s), paresthesias or weakness Psychiatric Psychiatric: Denies anxiety, depression, suicidal ideation or suicidal thoughts Endocrine Endocrinology: Denies polydipsia or polyuria EXAM Physical Exam Const Vital Signs: 05/23/22 22:04 05/24/22 00:05 05/24/22 01:03 Temperature 98.2 F Temperature Source Oral Pulse Rate 77 70 70 Respiratory Rate 16 14 18 Blood Pressure 144/89 H 123/74 H 101/69 Blood Pressure Mean 107 90 79 Pulse Ox 100 95 88 Oxygen Delivery Method Trach Collar Room Air Room Air Oxygen Flow Rate (L/min) 05/24/22 01:04 05/24/22 04:36 05/24/22 06:12 Temperature Temperature Source Pulse Rate 69 64 55 L Respiratory Rate 19 H 16 18 Blood Pressure 101/69 113/82 H 142/80 H Blood Pressure Mean 79 92 100 Pulse Ox 96 96 100 Oxygen Delivery Method Trach Collar Trach Collar Trach Collar Oxygen Flow Rate (L/min) 10 Positive well nourished General Appearance ED: NAD HEENT Reports moist mucous membranes and dry mucous membranes Mouth ED: Yes dry mucous membranes Mouth: dry mucous membranes Eyes PERRL and EOMs intact bilaterally Resp normal respiratory effort and clear to auscultation bilaterally Auscultation: Negative for rales, rhonchi or wheezes Cardio regular rate and regular rhythm GI normal to inspection, nondistended, normoactive bowel sounds Back/Spine no CVA tenderness Neuro oriented x3 and CN's II-XII intact bilaterally Sensorium / Orientation: alert Motor Exam: strength 5/5 throughout Psych mental status grossly normal Skin no rashes or lesions noted General Skin Exam: Negative for jaundice MDM MDM MDM Narrative Medical decision making narrative: Patient sent in for evaluation of confusion. Apparently he has been urinating on himself at the custodial. This is a new issue for him. His daughter was here and stated he was a little off but he is alert and oriented. He complained of shortness of breath. Although he does not look like he is very dyspneic. I did obtain a chest x-ray and on my interpretation this shows no acute cardiopulmonary process. Rapid flu and rapid COVID are negative. CBC within normal limits. LFTs unremarkable. Ammonia level normal. BMP shows an elevated glucose of 525. He also has an elevation in his creatinine at 1.41. Patient was given a liter of IV fluids. EKG was obtained and on my interpretation is a sinus rhythm with a ventricular to 72 bpm without sign of ischemic change. Urinalysis shows 1000 glucose but no evidence of urinary tract infection. Reevaluation after patient received a liter of IV fluids his blood sugar is down to 409. He was given 10 units of insulin. I ordered him another liter of IV fluids. I spoke with Dr. Pierre who is on-call for Dr. Garg. He did not think the patient needed to be admitted but he needed tighter glucose control at the facility. Repeat blood sugar after his second liter of fluid was 319. I will give another 10 units of insulin. Patient's blood sugar is now down under 300. His. Blood sugars were in the 200s. I feel this is a reasonable start for him to be discharged home. Again Dr. Pierre will have his blood sugars addressed after talking Dr. Garg. Impression: 1. Confusion 2. Dyspnea 3. Hyperglycemia Lab Data Attestation: I reviewed the patient's lab results. Labs: Laboratory Results - last 24 hr 05/23/22 05/23/22 05/23/22 22:12 22:12 23:54 WBC 8.0 RBC 5.04 Hgb 14.4 Hct 44.6 MCV 88.5 MCH 28.6 MCHC 32.3 RDW Std Deviation 43.5 RDW Coeff of Javier 13.8 Plt Count 285 MPV 10.8 Immature Gran % (Auto) 0.400 Neut % (Auto) 75.1 H Lymph % (Auto) 15.4 L Mcleod % (Auto) 8.2 Eos % (Auto) 0.4 Baso % (Auto) 0.5 Absolute Neuts (auto) 6.0 Absolute Lymphs (auto) 1.24 Nucleated RBC % 0 Sodium 139 Potassium 4.7 Chloride 101 Carbon Dioxide 32.0 Anion Gap 6 BUN 52 H Creatinine 1.41 H Estim Creat Clear Calc 41.31 Est GFR (MDRD) Af Amer 62 Est GFR (MDRD) Non-Af 51 L BUN/Creatinine Ratio 36.9 H Glucose 525 H* Calcium 9.9 Total Bilirubin Direct Bilirubin AST ALT Alkaline Phosphatase Ammonia Troponin I High Sens 18 Total Protein Albumin Globulin Urine Color Yellow Urine Clarity Clear Urine pH 5.0 Ur Specific [place] 1.015 Urine Protein 30 H Urine Glucose (UA) 1000 H Urine Ketones Negative Urine Occult Blood Negative Urine Nitrite Negative Urine Bilirubin Negative Urine Urobilinogen Normal Ur Leukocyte Esterase Negative Urine RBC 0 SEEN Urine WBC 0 SEEN Ur Squamous Epith Cells 0-5 SEEN Urine Bacteria 1+ Hyaline Casts 5-10 SEEN Urine Mucus 2+ POC Glucose 05/24/22 05/24/22 05/24/22 02:10 02:10 04:37 WBC RBC Hgb Hct MCV MCH MCHC RDW Std Deviation RDW Coeff of Javier Plt Count MPV Immature Gran % (Auto) Neut % (Auto) Lymph % (Auto) Mcleod % (Auto) Eos % (Auto) Baso % (Auto) Absolute Neuts (auto) Absolute Lymphs (auto) Nucleated RBC % Sodium Potassium Chloride Carbon Dioxide Anion Gap BUN Creatinine Estim Creat Clear Calc Est GFR (MDRD) Af Amer Est GFR (MDRD) Non-Af BUN/Creatinine Ratio Glucose Calcium Total Bilirubin 0.50 Direct Bilirubin 0.18 AST 13 L ALT 28 Alkaline Phosphatase 127 H Ammonia < 10.0 L Troponin I High Sens Total Protein 7.6 Albumin 3.0 L Globulin 4.6 H Urine Color Urine Clarity Urine pH Ur Specific [place] Urine Protein Urine Glucose (UA) Urine Ketones Urine Occult Blood Urine Nitrite Urine Bilirubin Urine Urobilinogen Ur Leukocyte Esterase Urine RBC Urine WBC Ur Squamous Epith Cells Urine Bacteria Hyaline Casts Urine Mucus POC Glucose 409 H 05/24/22 05/24/22 06:33 07:26 WBC RBC Hgb Hct MCV MCH MCHC RDW Std Deviation RDW Coeff of Javier Plt Count MPV Immature Gran % (Auto) Neut % (Auto) Lymph % (Auto) [place]cleod % (Auto) Eos % (Auto) Baso % (Auto) Absolute Neuts (auto) Absolute Lymphs (auto) Nucleated RBC % Sodium Potassium Chloride Carbon Dioxide Anion Gap BUN Creatinine Estim Creat Clear Calc Est GFR (MDRD) Af Amer Est GFR (MDRD) Non-Af BUN/Creatinine Ratio Glucose Calcium Total Bilirubin Direct Bilirubin AST ALT Alkaline Phosphatase Ammonia Troponin I High Sens Total Protein Albumin Globulin Urine Color Urine Clarity Urine pH Ur Specific [place] Urine Protein Urine Glucose (UA) Urine Ketones Urine Occult Blood Urine Nitrite Urine Bilirubin Urine Urobilinogen Ur Leukocyte Esterase Urine RBC Urine WBC Ur Squamous Epith Cells Urine Bacteria Hyaline Casts Urine Mucus POC Glucose 319 H 296 H Radiography Diagnostic Testing: Clinical Impression(s) from Imaging Studies Chest X-Ray 05/23/22 22:33 IMPRESSION: No acute pulmonary disease. Electronically Signed: Tc Mayen MD at 22:58 EST Reading Location ID and State: [address] [place] [address] Tel , Service support , Brain CT 05/24/22 00:47 IMPRESSION: undefined Discharge Plan Triage Chief Complaint: Mental Status Change ED Provider: Bart Torres Dx/Rx/DC Orders Instructions: ED ALOC, ED Diabetic Hyperglycemia Prescriptions: No Action lorazepam 0.5 mg tablet 0.5 mg PO DAILY PRN PRN (Reason: anxiety) levothyroxine 150 mcg capsule 150 mcg capsule 150 mcg PO QDAY albuterol sulfate 2.5 mg /3 mL (0.083 %) solution for nebulization 2.5 mg INHALATION BID budesonide-formoterol [Symbicort] 160-4.5 mcg/actuation HFA aerosol inhaler 2 puff INHALATION Q12H paroxetine HCl [Paxil] 20 mg tablet 20 mg PO QDAY aspirin [Adult Aspirin Regimen] 81 mg tablet,delayed release (DR/EC) 81 mg PO QDAY cyanocobalamin (vitamin B-12) [Vitamin B-12] 1,000 mcg tablet 1,000 mcg PO QDAY atorvastatin 80 mg tablet 80 mg PO QDAY guaifenesin 1,200 mg tablet extended release 12hr 1,200 mg PO BID PRN metformin 1,000 mg tablet 1,000 mg PO DAILY thiamine HCl (vitamin B1) 250 mg tablet 250 mg PO DAILY lisinopril 20 MG tablet 10 mg PO BID isosorbide mononitrate 60 mg tablet extended release 24 hr 60 mg PO BID Rx Instructions: swallow whole with glass of water; do not crush/chew /dissolve /cut/break omeprazole 40 mg capsule,delayed release(DR/EC) 40 mg PO QDAY Rx Instructions: swallow whole; do not crush, chew, dissolve, cut, break glimepiride 1 MG tablet 2 mg PO DAILY Qty: 30 0RF Rx Instructions: cut down to 1 mg daily if FS is less than 180 mg/dl ipratropium-albuterol 0.5 mg-3 mg(2.5 mg base)/3 mL solution for nebulization 3 ml inhalation Q4H PRN (Reason: shortness of breath) Qty: 90 0RF prednisone 20 MG tablet 60 mg PO DAILY Qty: 15 0RF clopidogrel [Plavix] 75 mg tablet 75 mg PO DAILY Qty: 1 0RF Primary Care Provider: Arnaud Garg Referrals: Arnaud Garg MD [Primary Care Provider] - Activity Restrictions/Additional Instructions: I spoke with Dr. Ignacio garveying your elevated blood sugars. He recommends tighter glucose control. Please contact Dr. Garg at the custodial. Disposition Disposition: Home, Self Care
--- NOTE | 2022-05-23 22:33 | RAD_ITS ---
INDICATION: dyspnea EXAMINATION: Frontal view of the chest COMPARISON: Chest x-ray August 26, 2021. FINDINGS: Frontal view of the chest was obtained. Mild hyperinflation. A tracheostomy tube is identified. The cardiac silhouette is not enlarged. No confluent airspace disease. No pneumothorax. RAD/Chest 1 View (Portable) IMPRESSION: No acute pulmonary disease. Electronically Signed: Tc Mayen MD at 22:58 EST ,
[2022-05-23 22:52] LABS: Absolute Lymphocyte Count 1.24 X10^3/uL (0.83-4.51); Basophil# 0.04 X10^3/uL; Basophil% 0.5 % (0-1); Eosinophil# 0.03 X10^3/uL; Eosinophils% 0.4 % (0-5); Hematocrit 44.6 % (40-54); Hemoglobin 14.4 g/dL (13.0-16.5); Lymphocyte # 1.24 X10^3/ul (0.83-4.51); Lymphocyte % 15.4 % (19-41); Mean Corp Hgb Conc 32.3 g/dL (32-36); Mean Corpuscular Hgb 28.6 pg (27.0-32.0); Mean Corpuscular Volume 88.5 fL (80-94); Mean Platelet Vol. 10.8 fl (6.2-12.0); Monocyte# 0.66 X10^3/uL; Monocyte% 8.2 % (0-10); NRBC Flagged by Analyzer 0 % (0-5); Neutrophil # 6.03 X10^3/uL (2.7-7.7); Neutrophil % 75.1 % (47-70); Platelet Count 285 K/mm3 (150-450); RBC Distribution Width CV 13.8 % (11.6-14.6); RBC Distribution Width SD 43.5 fl (35.1-43.9); Red Blood Count 5.04 M/mm3 (4.6-6.2)
[2022-05-23 23:17] LABS: Anion Gap 6 (5-15); BUN 52 mg/dL (7-18); BUN/Creat Ratio 36.9 RATIO (10-20); Calcium,Total 9.9 mg/dL (8.5-10.1); Chloride 101 mmol/L (98-107); Creatinine, Serum 1.41 mg/dL (0.70-1.30); EST Glomerular Filtration Rate 51 mL/min (>60); Est Glom Filt Rate - Afr Amer 62 mL/min (>60); Estimated Creatinine Clearance 41.31 ml/min; Glucose 525 mg/dL (74-106); Potassium 4.7 mmol/L (3.5-5.1); Sodium Level 139 mmol/L (136-145); Troponin-I HS 18 pg/mL (3.0-78.0)
[2022-05-23 23:59] LABS: Red Blood Cells-Urine 0 SEEN /hpf (0-5); White Blood Cells 0 SEEN /hpf (0-5)
[2022-05-24 00:05] VITALS: BP 123/74; PULSE 70; RESP 14; O2SAT 95
[2022-05-24 00:17] LABS: Color, Urine Yellow (Yellow); Glucose, Dipstick 1000 mg/dl (Normal); Ketone-Dipstick Negative (Negative); Leukocyte Esterase-Dipstick Negative /ul (Negative); Nitrite-Dipstick Negative (Negative); Occult Blood-Urine Negative /ul (Negative); Protein-Dipstick 30 mg/dl (Negative); Specific Gravity, Urine 1.015 (1.002-1.030); Urine Bilirubin Dipstick Negative (Negative); Urine Clarity Clear (Clear); Urine Urobilinogen Normal (Normal)
[2022-05-24 00:28] LABS: Bacteria 1+ /hpf (None Seen); Hyaline Cast 5-10 SEEN /lpf (0-5); Mucous, Urine 2+ /hpf (<or=2+); Squamous Epithelial Cells - UA 0-5 SEEN /hpf (0-5)
--- NOTE | 2022-05-24 00:47 | CT_ITS ---
EXAM: CT brain without IV contrast. HISTORY: ams TECHNIQUE: No intravenous contrast. A radiation dose optimization technique was used for this scan. COMPARISON: Head CT and CTA from November 10, 2017. LIMITATIONS: None. BRAIN: Mild involutional change. Mild low attenuation bilaterally within the deep white matter, likely secondary to chronic microvascular ischemia. Small focus of encephalomalacia in the posterior left temporal lobe is stable since the prior exam. VENTRICLES: No hydrocephalus. EXTRA-AXIAL SPACES: No acute hemorrhage. CALVARIUM/SKULL BASE: No acute fracture. FACE/SINUSES: No significant abnormality. SOFT TISSUES: Normal. OTHER: None. CONCLUSION: Chronic ischemic changes. No acute intracranial abnormality. Electronically Signed: Tc Mayen MD at 2:37 EST , CT/Brain/Head without Contrast IMPRESSION: undefined
[2022-05-24] MEDS: 0.9% Normal Saline 1,000 ML 999 ML IV ×2 (01:00→05:35)
[2022-05-24 01:03] VITALS: BP 101/69; PULSE 70; RESP 18; O2SAT 88
[2022-05-24 01:04] VITALS: BP 101/69; PULSE 69; RESP 19; O2SAT 96
[2022-05-24 02:38] LABS: AST(SGOT) 13 U/L (15-37); Alanine Aminotransfer ALT/SGPT 28 U/L (16-61); Alkaline Phosphatase 127 U/L (45-117); Bilirubin, Direct 0.18 mg/dL (0.00-0.30); Globulin 4.6 g/dL (2.2-4.2); Protein, Total 7.6 g/dL (6.4-8.2)
[2022-05-24 02:48] LABS: Ammonia < 10.0 umol/L (11-32)
[2022-05-24 04:36] VITALS: BP 113/82; PULSE 64; RESP 16; O2SAT 96
[2022-05-24 04:56] LABS: Bedside Glucose 409 mg/dL (74-106)
[2022-05-24] MEDS: Insulin Lispro 100 UNIT/ML INSULN.PEN 10 UNIT SC ×2 (05:11→06:39)
[2022-05-24 06:12] VITALS: BP 142/80; PULSE 55; RESP 18; O2SAT 100
--- NOTE | 2022-05-24 06:43 | ED.RN ---
this nurse spoke with Patricia at the [place] and informed Patricia that pt will be returning to [place] today. Dr. Quarles will manage pt's blood sugar at [facility], per Dr. Torres.
[2022-05-24 06:56] LABS: Bedside Glucose 319 mg/dL (74-106)
[2022-05-24 07:45] LABS: Bedside Glucose 296 mg/dL (74-106)
[2022-05-24 08:03] VITALS: BP 179/84; PULSE 81; RESP 17; O2SAT 98
--- NOTE | 2022-05-24 08:03 | ED.RN ---
called report to yahir at [facility]
[2022-05-24 13:46] LABS: Bedside Glucose 200 mg/dL (74-106)
== END 2022-05-24 08:46 | disposition home or self-care (01) ==
PROVIDERS: Emergency Provider Student in an Organized Health Care Education/Training Program; PCP Family Medicine; Visit Provider Student in an Organized Health Care Education/Training Program
DX: E11.65 Type 2 diabetes mellitus with hyperglycemia (principal); J43.9 Emphysema, unspecified; R06.02 Shortness of breath; R41.0 Disorientation, unspecified; I25.10 Atherosclerotic heart disease of native coronary artery without angina pectoris; Z20.822 Contact with and (suspected) exposure to COVID-19; E78.5 Hyperlipidemia, unspecified; Z87.891 Personal history of nicotine dependence
CPT/HCPCS: 70450; 71045; 80048; 80076; 81001; 82140; 82962; 84484; 85025; 87428; 93005; 96360; 96361; 99285; J7030; P9612; A4216

== ENCOUNTER 2022-06-27 00:16 | Emergency (ER) | payer MEDICARE, MEDICAID, SELFPAY ==
[2017-08-02 11:16] VITALS: BMI 26.0
[2022-06-27 00:16] VITALS: BP 143/68; PULSE 60; RESP 16; TEMP 37; O2SAT 94; BMI 23.2
--- NOTE | 2022-06-27 00:33 | EDS_ITS ---
HPI History of Present Illness Chief Complaint: Shortness of Breath Informant: patient Narrative Narrative: [facility] from his tracheostomy. Laryngeal cancer states this was placed probably 5 months ago is not currently on chemo or radiation. For medications he is on Plavix. Has COPD history. He wears oxygen at night. None during the day. Reviewed EMS report confirms call out for hemoptysis from trachea. He was in no respiratory distress. Pulse ox stable. Reviewing records he was seen in March last year for dislodged trach. Laryngeal cancer 30 years ago tracheostomy placed in December at . There is difficulty with placement in the ED by a physician, ENT was contacted was able to replace tracheostomy tube through the ED and was discharged back to his facility. [facility] Medical History Acute bronchitis Ataxia Atherosclerotic heart disease of [place] coronary artery with other forms of angina pectoris Carotid stenosis, right Chest pain COPD (chronic obstructive pulmonary disease) Diabetes mellitus, type II Emphysema lung Frequent headaches Hyperlipidemia Hypothyroidism Malignant neoplasm of larynx Pneumonia Poor balance Pulmonary nodules Sinus bradycardia Snoring Tobacco use disorder Venous insufficiency (chronic) (peripheral) Home Medications albuterol sulfate 2.5 mg/3 mL (0.083 %) solution for nebulization 2.5 mg inhalation BID breathing 06/24/17 [History Last Taken 08/26/18] aspirin 81 mg tablet,delayed release (Adult Aspirin Regimen) 81 mg PO QDAY heart health 06/24/17 [History Last Taken 12/06/18] budesonide-formoterol HFA 160 mcg-4.5 mcg/actuation aerosol inhaler (Symbicort) 2 puff inhalation Q12H SOB 06/24/17 [History Last Taken 08/26/18] cyanocobalamin (vitamin B-12) 1,000 mcg tablet (Vitamin B-12) 1,000 mcg PO QDAY supplement 06/24/17 [History Last Taken 08/26/18] levothyroxine 150 mcg capsule 150 mcg PO QDAY thyroid 06/24/17 [History Last Taken 12/06/18] lorazepam 0.5 mg tablet 0.5 mg PO DAILY PRN PRN anxiety 06/24/17 [History Last Taken 08/26/18] paroxetine HCl 20 mg tablet (Paxil) 20 mg PO QDAY mood 06/24/17 [History Last Taken 08/26/18] atorvastatin 80 mg tablet 80 mg PO QDAY cholesterol 06/28/17 [History Last Taken 08/26/18] lisinopril 20 mg tablet 10 mg PO BID blood pressure 11/02/17 [History Last Taken 12/06/18] glimepiride 1 mg tablet 2 mg PO DAILY #30 tabs 08/29/18 [Rx Last Taken Unknown] clopidogrel 75 mg tablet (Plavix) 75 mg PO DAILY #1 TAB 11/30/18 [Rx Last Taken 12/06/18] guaifenesin 1,200 mg tablet, extended release 12 hr 1,200 mg PO BID PRN 12/22/18 [History Last Taken Unknown] isosorbide mononitrate 60 mg tablet,extended release 24 hr 60 mg PO BID blood pressure 12/22/18 [History Last Taken Unknown] metformin 1,000 mg tablet 1,000 mg PO DAILY 12/22/18 [History Last Taken Unknown] omeprazole 40 mg capsule,delayed release 40 mg PO QDAY reflux 12/22/18 [History Last Taken Unknown] thiamine HCl (vitamin B1) 250 mg tablet 250 mg PO DAILY 12/22/18 [History Last Taken Unknown] ipratropium 0.5 mg-albuterol 3 mg (2.5 mg base)/3 mL nebulization soln 3 ml inhalation Q4H PRN shortness of breath #90 mL 08/26/21 [Rx Last Taken Unknown] prednisone 20 mg tablet 60 mg PO DAILY #15 TABLETS 08/26/21 [Rx Last Taken Unknown] Allergy/AdvReac Type Severity Reaction Status Date / Time No Known Allergies Allergy Verified 03/19/22 06:17 Family History Father , age 61 Myocardial infarction CAD (coronary artery disease) Sudden cardiac Mother , age 80 Congestive heart failure Sister , cause unknown, suspected CVA No problems noted. Surgical History History of colonoscopy History of esophagogastroduodenoscopy History of left heart catheterization History of right-sided carotid endarterectomy (~11/02/17) Stented coronary artery Social History Smoking Status: Former smoker alcohol intake: never substance use type: does not use caffeine: Yes Type: coffee Number of servings: 6 what type of physical activity do you participate in: none seatbelt use: always do you feel safe at home: Yes ROS ROS ED Constitutional Constitutional ED: Denies chills, fever(s) or sweats Eyes Eyes: Denies change in vision ENT ENT ED: Denies dysphagia or sore throat Cardiovascular Cardiovascular: Denies chest pain, leg edema, palpitations or racing heartbeat Respiratory/Chest Respiratory/Chest: Reports other Details: Hemoptysis ; Denies cough, dyspnea or dyspnea on exertion Gastrointestinal Gastrointestinal: Denies abdominal pain, diarrhea, nausea or vomiting Genitourinary Genitourinary ED: Denies dysuria, hematuria or urinary frequency Musculoskeletal Musculoskeletal: Denies back pain, extremity pain or neck pain Integumentary Denies rash or wounds Neurologic Neurologic: Denies headache(s), paresthesias or weakness EXAM Physical Exam Const Vital Signs: 06/27/22 00:16 06/27/22 01:04 06/27/22 01:35 Temperature 98.6 F Temperature Source Oral Pulse Rate 60 60 Respiratory Rate 16 16 Respiratory Effort Non-Labored Respiratory Depth Normal Respiratory Pattern Normal Blood Pressure 143/68 H 160/84 H Blood Pressure Mean 93 109 Pulse Ox 94 98 Oxygen Delivery Method Room Air Room Air Room Air 06/27/22 02:31 Temperature 98.6 F Temperature Source Pulse Rate 57 L Respiratory Rate 16 Respiratory Effort Respiratory Depth Respiratory Pattern Blood Pressure 147/80 H Blood Pressure Mean 102 Pulse Ox 97 Oxygen Delivery Method Positive well nourished and well developed General Appearance ED: well developed and NAD HEENT Reports moist mucous membranes normocephalic and atraumatic Eyes PERRL, EOMs intact bilaterally and conjunctivae normal General Eye ED: Yes normal appearance of both eyes Neck no lymphadenopathy and supple Neck Narrative: Tracheostomy, noted blood at the orifice there is no active bleeding. General: Negative for tenderness Chest Wall Chest: Negative for tenderness Resp normal respiratory effort and normal air movement Effort and Inspection: symmetric chest movement; Negative for respiratory distress Cardio regular rate, regular rhythm and no murmurs Peripheral Pulses: pulses 2+ throughout GI normal to inspection, nondistended, normoactive bowel sounds and non-tender Palpation: Negative for guarding or rebound tenderness present Back/Spine no CVA tenderness and no thoracic nor lumbar tenderness Extremity normal to inspection General Extremety ED: Negative for edema or tenderness General Extremity: Negative for edema Neuro oriented x3 and no sensory deficits noted Sensorium / Orientation: awake and alert Skin no rashes or lesions noted and no wounds MDM MDM MDM Narrative Medical decision making narrative: Patient with noted hemoptysis he is in no respiratory distress his oxygen is stable. Differentials bronchial irritation, pneumonia, PE. However without dyspnea symptoms less likely PE. Labs obtained hemoglobin stable at 12.3. Creatinine 1.19. Two-view chest x-ray interpreted myself shows no acute process. 0115: Initial plans discussed with patient possible bronchoscopy bedside for quick evaluation however family present daughter is present. Reporting he had extensive hemorrhaging in December when this was placed. She states if actively bleeding is there specialist available for management, discussed there is not there for patient daughter requesting transfer up to [facility] where this was placed by Dr. Townsend. Vitals are stable. transfer is contacted for discussion for transfer. 0157: I spoke with ENT Dr. Salguero who agrees with transfer up to the ED. I spoke with the ED physician Dr. Sharmaine Cha updated patient's history and accepted to the ED for ENT evaluation. Family updated. Will arrange transport. Lab Data Attestation: I reviewed the patient's lab results. Labs: Laboratory Results - last 24 hr 06/27/22 06/27/22 06/27/22 00:35 00:35 00:35 WBC 6.4 RBC 4.25 L Hgb 12.3 L Hct 37.8 L MCV 88.9 MCH 28.9 MCHC 32.5 RDW Std Deviation 46.7 H RDW Coeff of Javier 14.5 Plt Count 354 MPV 9.6 Immature Gran % (Auto) 0.900 Neut % (Auto) 65.2 Lymph % (Auto) 22.4 [place] % (Auto) 9.2 Eos % (Auto) 1.4 Baso % (Auto) 0.9 Absolute Neuts (auto) 4.2 Absolute Lymphs (auto) 1.44 Nucleated RBC % 0 PT 13.2 INR 1.0 APTT 32.1 Sodium 134 L Potassium 5.1 Chloride 97 L Carbon Dioxide 33.0 H Anion Gap 4 L BUN 34 H Creatinine 1.19 Estim Creat Clear Calc 52.53 Est GFR (MDRD) Af Amer 75 Est GFR (MDRD) Non-Af 62 BUN/Creatinine Ratio 28.6 H Glucose 400 H Calcium 9.5 Radiography Diagnostic Testing: Clinical Impression(s) from Imaging Studies Chest X-Ray 06/27/22 01:00 IMPRESSION: COPD. Electronically Signed: Priscilla Gonzales MD at 1:24 EST Reading Location ID and State: [facility] / [place] Tel , Service support , Critical Care Time Critical Care Time: Yes Critical care time (excluding procedures): Discussing w/Patient &/or Family/Tax Associate, Discussing w/Consultants, Arranging Admission or Transfer, Performing Direct Patient Care at Bedside and - (25 minutes) Discharge Plan Triage Chief Complaint: Shortness of Breath ED Provider: Alton Oneal Dx/Rx/DC Orders Clinical Impression: Cough with hemoptysis, Tracheostomy complication, unspecified, Hx of laryngeal cancer Prescriptions: No Action lorazepam 0.5 mg tablet 0.5 mg PO DAILY PRN PRN (Reason: anxiety) levothyroxine 150 mcg capsule 150 mcg capsule 150 mcg PO QDAY albuterol sulfate 2.5 mg /3 mL (0.083 %) solution for nebulization 2.5 mg INHALATION BID budesonide-formoterol [Symbicort] 160-4.5 mcg/actuation HFA aerosol inhaler 2 puff INHALATION Q12H paroxetine HCl [Paxil] 20 mg tablet 20 mg PO QDAY aspirin [Adult Aspirin Regimen] 81 mg tablet,delayed release (DR/EC) 81 mg PO QDAY cyanocobalamin (vitamin B-12) [Vitamin B-12] 1,000 mcg tablet 1,000 mcg PO QDAY atorvastatin 80 mg tablet 80 mg PO QDAY guaifenesin 1,200 mg tablet extended release 12hr 1,200 mg PO BID PRN metformin 1,000 mg tablet 1,000 mg PO DAILY thiamine HCl (vitamin B1) 250 mg tablet 250 mg PO DAILY lisinopril 20 MG tablet 10 mg PO BID isosorbide mononitrate 60 mg tablet extended release 24 hr 60 mg PO BID Rx Instructions: swallow whole with glass of water; do not crush/chew /dissolve /cut/break omeprazole 40 mg capsule,delayed release(DR/EC) 40 mg PO QDAY Rx Instructions: swallow whole; do not crush, chew, dissolve, cut, break glimepiride 1 MG tablet 2 mg PO DAILY Qty: 30 0RF Rx Instructions: cut down to 1 mg daily if FS is less than 180 mg/dl ipratropium-albuterol 0.5 mg-3 mg(2.5 mg base)/3 mL solution for nebulization 3 ml inhalation Q4H PRN (Reason: shortness of breath) Qty: 90 0RF prednisone 20 MG tablet 60 mg PO DAILY Qty: 15 0RF clopidogrel [Plavix] 75 mg tablet 75 mg PO DAILY Qty: 1 0RF Primary Care Provider: Arnaud Garg Referrals: Arnaud Garg MD [Primary Care Provider] - Disposition Disposition: DC/Tx to Another Type of HCF
[2022-06-27 00:48] LABS: Absolute Lymphocyte Count 1.44 X10^3/uL (0.83-4.51); Absolute Neutrophil Count 4.2 X10^3/uL (2.0-7.7); Basophil# 0.06 X10^3/uL; Basophil% 0.9 % (0-1); Eosinophil# 0.09 X10^3/uL; Eosinophils% 1.4 % (0-5); Hematocrit 37.8 % (40-54); Hemoglobin 12.3 g/dL (13.0-16.5); Lymphocyte # 1.44 X10^3/ul (0.83-4.51); Lymphocyte % 22.4 % (19-41); Mean Corp Hgb Conc 32.5 g/dL (32-36); Mean Corpuscular Hgb 28.9 pg (27.0-32.0); Mean Corpuscular Volume 88.9 fL (80-94); Mean Platelet Vol. 9.6 fl (6.2-12.0); Monocyte# 0.59 X10^3/uL; Monocyte% 9.2 % (0-10); NRBC Flagged by Analyzer 0 % (0-5); Neutrophil % 65.2 % (47-70); Platelet Count 354 K/mm3 (150-450); RBC Distribution Width CV 14.5 % (11.6-14.6); RBC Distribution Width SD 46.7 fl (35.1-43.9); Red Blood Count 4.25 M/mm3 (4.6-6.2); White Blood Count 6.4 K/mm3 (4.4-11.0)
[2022-06-27 00:54] LABS: Prothrombin Time (Protime)PT. 13.2 SECONDS (11.7-14.9)
[2022-06-27 00:55] LABS: Partial Thromboplast Time 32.1 Seconds (24.1-36.2)
--- NOTE | 2022-06-27 01:00 | RAD_ITS ---
INDICATION: hemoptysis EXAMINATION/TECHNIQUE: X-RAY - XR Chest 2 Views COMPARISON: None. FINDINGS: LINES/DEVICES: Tracheostomy tube is seen in good position. LUNGS: Hyperinflation of both lungs suggesting COPD. MEDIASTINUM AND CARDIOVASCULAR STRUCTURES: Cardiac silhouette not enlarged. Central airways and mediastinal contour are unremarkable. BONES AND SOFT TISSUES: Unremarkable. RAD/Chest PA and Lateral IMPRESSION: COPD. Electronically Signed: Priscilla Gonzales MD at 1:24 EST ,
[2022-06-27 01:01] LABS: Anion Gap 4 (5-15); BUN 34 mg/dL (7-18); BUN/Creat Ratio 28.6 RATIO (10-20); Calcium,Total 9.5 mg/dL (8.5-10.1); Chloride 97 mmol/L (98-107); Creatinine, Serum 1.19 mg/dL (0.70-1.30); EST Glomerular Filtration Rate 62 mL/min (>60); Est Glom Filt Rate - Afr Amer 75 mL/min (>60); Estimated Creatinine Clearance 52.53 ml/min; Glucose 400 mg/dL (74-106); Potassium 5.1 mmol/L (3.5-5.1); Sodium Level 134 mmol/L (136-145)
[2022-06-27 01:04] VITALS: O2SAT 93
[2022-06-27 01:35] VITALS: BP 160/84; PULSE 60; RESP 16; O2SAT 98
--- NOTE | 2022-06-27 02:20 | NURSING ---
THIS BONING ROOM WORKER CALLED PHYSICIANS THEY GAVE ETA 2-3 HRS (4-5AM).
[2022-06-27 02:31] VITALS: BP 147/80; PULSE 57; RESP 16; TEMP 37; O2SAT 97
--- NOTE | 2022-06-27 02:48 | ED.RN ---
NURSE UPDATE GIVEN TO STEPHANIE [facility]. INFORMED THAT PT IS AWAITING TRANSPORT TO [facility] AND FAMILY IS AWARE
[2022-06-27 04:26] VITALS: BP 120/63; PULSE 55; RESP 18; O2SAT 96
== END 2022-06-27 06:08 | disposition other institution (70) ==
PROVIDERS: Emergency Provider Emergency Medicine; PCP Family Medicine; Visit Provider Emergency Medicine
DX: J95.09 Other tracheostomy complication (principal); J43.9 Emphysema, unspecified; E11.9 Type 2 diabetes mellitus without complications; R05.9 Cough, unspecified; I25.10 Atherosclerotic heart disease of native coronary artery without angina pectoris; Z87.891 Personal history of nicotine dependence; E78.5 Hyperlipidemia, unspecified; R04.2 Hemoptysis; R06.02 Shortness of breath; Z85.21 Personal history of malignant neoplasm of larynx
CPT/HCPCS: 31720; 71046; 80048; 85025; 85610; 85730; 87811; 99285; A4216

== ENCOUNTER 2022-08-19 16:53 | Emergency (ER) | payer MEDICARE, MEDICAID, SELFPAY ==
[2017-08-02 11:16] VITALS: BMI 26.0
[2022-08-19] VITALS (7 sets, daily range): BP systolic 125–169; BP diastolic 62–81; PULSE 58–81; RESP 14–20; TEMP 36.5; O2SAT 96–98; BMI 23.7
--- NOTE | 2022-08-19 17:10 | CT_ITS ---
EXAM: CT NECK WITH INTRAVENOUS CONTRAST CLINICAL INDICATION: Bleeding from tracheostomy, known laryngeal mass TECHNIQUE: Helically acquired images were obtained of the neck with intravenous contrast. This CT exam was performed using one or more of the following dose reduction techniques: automated exposure control, adjustment of the mA and/or kV according to patient size, and/or use of iterative reconstruction technique. This report was created using [employer] report generation technology. CONTRAST: IV 100mL [id number] RADIATION DOSE: CTDIvol = 18.34 mGy, DLP = 1869.43 mGy-cm COMPARISON: 1.2.20 FINDINGS: NASOPHARYNX: Unremarkable. SUPRAHYOID NECK: Unremarkable. Oropharynx, oral cavity, parapharyngeal space and retropharyngeal space are unremarkable. INFRAHYOID NECK: Unremarkable. The larynx, hypopharynx and supraglottis are unremarkable. SUBMANDIBULAR/PAROTID GLANDS: Unremarkable. Glands are normal in size. THYROID: Unremarkable. No enlarged or calcified nodules. BONES/JOINTS: No acute fracture. SOFT TISSUES: Unremarkable. VASCULATURE: No acute findings. LYMPH NODES: Unremarkable. No lymphadenopathy. LUNG APICES: Unremarkable as visualized. 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 TUBES, LINES AND DEVICES: There is a heterogeneous mass along the left side of the thyroid cartilage. This measures 36 x 15 mm. There is destruction of the left thyroid cartilage. Mass extends inferiorly along the tracheostomy tube. There is a a tracheostomy tube. OTHER FINDINGS: Source of the bleeding is not identified. CT/Soft Tissue Neck WITH Contrast IMPRESSION: 1. There is a heterogeneous mass along the left side of the thyroid cartilage. This measures 36 x 15 mm. There is destruction of the left thyroid cartilage. Mass extends inferiorly along the tracheostomy tube. 2. 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 3. Source of the bleeding is not identified. Electronically Signed: Shan Tan MD at 19:08 EDT ,
--- NOTE | 2022-08-19 17:39 | EX.ED.DYSGE1 ---
HPI History of Present Illness Chief Complaint: Wound Informant: patient Narrative Narrative: Presents with blood from his tracheostomy. This just started this afternoon. He states he is not having chest pain and he is not short of breath. He has no bleeding from anywhere else. He is on Plavix and we believe he is on aspirin also. Patient has had a tracheostomy for about 15 months due to what sounds like dysfunctional vocal cords. 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 I am not certain on these details. I did look up prior studies. But his last CT of the neck was over in 2019. Patient states he has not been feeling ill. No change in his medications. Although he does get suction through his trach, this did not start immediately after an episode of suctioning. [facility] Medical History Acute bronchitis Ataxia Atherosclerotic heart disease of [place] coronary artery with other forms of angina pectoris Carotid stenosis, right Chest pain COPD (chronic obstructive pulmonary disease) Diabetes mellitus, type II Emphysema lung Frequent headaches Hyperlipidemia Hypothyroidism Malignant neoplasm of larynx Pneumonia Poor balance Pulmonary nodules Sinus bradycardia Snoring Tobacco use disorder Venous insufficiency (chronic) (peripheral) Home Medications levothyroxine 150 mcg capsule 100 mcg PO QDAY thyroid 06/24/17 [History Last Taken 12/06/18] paroxetine HCl 20 mg tablet (Paxil) 20 mg PO QDAY mood 06/24/17 [History Last Taken 08/26/18] atorvastatin 80 mg tablet 80 mg PO QDAY cholesterol 06/28/17 [History Last Taken 08/26/18] lisinopril 20 mg tablet 10 mg PO DAILY blood pressure 11/02/17 [History Last Taken 12/06/18] clopidogrel 75 mg tablet (Plavix) 75 mg PO DAILY #1 TAB 11/30/18 [Rx Last Taken 12/06/18] acetylcysteine 200 mg/mL (20 %) solution 3 ml inhalation Q8H PRN Secretions 08/19/22 [History Last Taken Unknown] albuterol sulfate 90 mcg/actuation aerosol inhaler (Ventolin HFA) 2 puff inhalation Q4H 08/19/22 [History Last Taken Unknown] docusate sodium 100 mg tablet 100 mg PO DAILY 08/19/22 [History Last Taken Unknown] fluticasone propionate 100 mcg/actuation blister powder for inhalation 1 inh inhalation Q12H 08/19/22 [History Last Taken Unknown] fluticasone propionate 55 mcg/actuation breath activated pwdr inhaler,sensor 1 inh inhalation Q12H 08/19/22 [History Last Taken Unknown] glipizide 10 mg tablet 20 mg PO DAILY 08/19/22 [History Last Taken Unknown] insulin glargine 100 unit/mL (3 mL) subcutaneous pen (Lantus Solostar U-100 Insulin) 8 unit subcut BREAKFAST 08/19/22 [History Last Taken Unknown] isosorbide dinitrate 20 mg tablet 20 mg PO TID 08/19/22 [History Last Taken Unknown] loratadine 10 mg tablet (Loradamed) 10 mg PO DAILY 08/19/22 [History Last Taken Unknown] metformin 1,000 mg tablet 1,000 mg PO BID 08/19/22 [History Last Taken Unknown] oxycodone 5 mg/5 mL oral solution 5 mg PO Q4H PRN Pain 08/19/22 [History Last Taken Unknown] polyethylene glycol 3350 17 gram oral powder packet 17 g PO BREAKFAST 08/19/22 [History Last Taken Unknown] salmeterol 50 mcg/dose blister powder for inhalation 1 inh inhalation Q12H 08/19/22 [History Last Taken Unknown] sennosides 8.6 mg tablet (senna) 8.6 mg PO BID PRN Constipation 08/19/22 [History Last Taken Unknown] tamsulosin 0.4 mg capsule 0.4 mg PO QHS 08/19/22 [History Last Taken Unknown] trazodone 50 mg tablet 25 mg PO QHS 08/19/22 [History Last Taken Unknown] Allergy/AdvReac Type Severity Reaction Status Date / Time No Known Allergies Allergy Verified 03/19/22 06:17 Family History Father , age 61 Myocardial infarction CAD (coronary artery disease) Sudden cardiac Mother , age 80 Congestive heart failure Sister , cause unknown, suspected CVA No problems noted. Surgical History History of colonoscopy History of esophagogastroduodenoscopy History of left heart catheterization History of right-sided carotid endarterectomy (~11/02/17) Stented coronary artery Social History Smoking Status: Former smoker alcohol intake: never substance use type: does not use caffeine: Yes Type: coffee Number of servings: 6 what type of physical activity do you participate in: none seatbelt use: always do you feel safe at home: Yes ROS ROS ED Constitutional Constitutional ED: Denies chills or fever(s) ENT ENT ED: Reports rhinorrhea and other Details: See history of present illness. ; Denies sore throat Cardiovascular Cardiovascular: Denies chest pain or palpitations Respiratory/Chest Respiratory/Chest: Denies cough or dyspnea Gastrointestinal Gastrointestinal: Denies melena, nausea or vomiting Genitourinary Genitourinary ED: Denies hematuria Musculoskeletal Musculoskeletal: Denies myalgias Integumentary Denies rash Neurologic Neurologic: Denies headache(s) Hematologic/Lymphatic Hematologic/Lymphatic: Reports easy bleeding and easy bruising Allergic/Immunologic Allergic/Immunologic ED: Denies urticaria EXAM Physical Exam Narrative Exam Narrative: The alert no acute distress. He is pleasant. We communicated both verbally and using his fingers to give numbers and times. I also reviewed his outpatient medical record from the nursing facility. HEENT: No epistaxis. No intraoral bleeding or mass that I can see. Neck shows tracheostomy in good position. There is no bleeding around it. But there is some blood that has come out. We had respiratory therapy suction this and they did suction some bright red blood. It does not appear to be continuing out at this moment. But it does appear to be coming from the tracheostomy tube. Lungs do sound clear. I am not hearing wheezing. I am not hearing any coarse breath sounds. Patient really is not having coughing except when he was suctioned. Heart is regular. Rates about 65. I do not hear a murmur. Abdomen is soft. He has a PEG tube in place that looks clean and dry. No tenderness in the abdomen. No CVA or suprapubic tenderness Extremities show no marked abnormalities edema tenderness. No abnormal bruising. Skin shows no petechiae or purpura. No intraoral petechiae. Const Vital Signs: 08/19/22 16:53 08/19/22 17:16 08/19/22 18:13 Temperature 97.7 F L Temperature Source Temporal Pulse Rate 63 58 L Respiratory Rate 14 16 Respiratory Effort Normal Non-Labored Respiratory Pattern Normal Blood Pressure 132/62 H 125/72 H Blood Pressure Mean 85 89 Pulse Ox 98 98 Oxygen Delivery Method Room Air Room Air 08/19/22 19:00 08/19/22 20:00 08/19/22 21:00 Temperature Temperature Source Pulse Rate 66 67 Respiratory Rate 18 20 H Respiratory Effort Respiratory Pattern Blood Pressure 158/76 H 169/81 H Blood Pressure Mean 103 110 Pulse Ox 96 96 96 Oxygen Delivery Method Room Air Room Air MDM MDM MDM Narrative Medical decision making narrative: My independent interpretation of the CT of the neck and chest shows questionable mass in the neck. This is defined as a 36 x 15 mm mass near the tracheostomy tube by radiology reading. Patient's blood work showed overall normal clotting function. Electrolytes showed no marked abnormalities. Liver function test look good. Hemoglobin was little low so at 11.2 which is about a 1 g drop from June. But his platelets are normal. I discussed the findings with the daughter who is now here. I also discussed with patient at the same time. They do want to go to [facility]. That is where they have their care. Evidently there was canceling an appointment 2 weeks ago. It is unclear if the patient did this or was done by the office. But they now an appointment in September. The patient states he did not really want to go and get chemotherapy but he would consider surgery if it would just help any bleeding. They would also consider cauterization or procedure that would help to palliate the bleeding. I discussed the case with the ENT, Dr. Tee. I also then discussed the case with Dr. Mansfield in the emergency department. Patient will be transferred up to [facility] emergency department. Lab Data Attestation: I reviewed the patient's lab results. Labs: Laboratory Results - last 24 hr 08/19/22 08/19/22 08/19/22 17:15 17:15 17:15 WBC Cancelled Corrected WBC Cancelled RBC Cancelled Hgb Cancelled Hct Cancelled MCV Cancelled MCH Cancelled MCHC Cancelled RDW Std Deviation Cancelled RDW Coeff of Javier Cancelled Plt Count Cancelled MPV Cancelled Immature Gran % (Auto) Cancelled Neut % (Auto) Cancelled Lymph % (Auto) Cancelled Moody % (Auto) Cancelled Eos % (Auto) Cancelled Baso % (Auto) Cancelled Absolute Neuts (auto) Cancelled Absolute Lymphs (auto) Cancelled Total Counted Cancelled Neutrophils % (Manual) Cancelled Band Neutrophils % Cancelled Lymphocytes % (Manual) Cancelled Monocytes % (Manual) Cancelled Eosinophils % (Manual) Cancelled Basophils % (Manual) Cancelled Metamyelocytes % Cancelled Myelocytes % Cancelled Promyelocytes % Cancelled Blast Cells % Cancelled Plasma Cell % (Manual) Cancelled Other Cells % Cancelled Nucleated RBC % Cancelled Nucleated RBCs/100 WBC Cancelled Differential Comment Cancelled Diff Path Review Cancelled Hypersegmented Neuts Cancelled Atypical Lymphocytes Cancelled Reactive Lymphocytes Cancelled Smudge Cells Cancelled Toxic Granulation Cancelled Toxic Vacuolation Cancelled Dohle Bodies Cancelled Sofia Rods Cancelled Platelet Estimate Cancelled Plt Morphology Comment Cancelled RBC Morphology Cancelled Polychromasia Cancelled Hypochromasia Cancelled Poikilocytosis Cancelled Basophilic Stippling Cancelled Anisocytosis Cancelled Microcytosis Cancelled Macrocytosis Cancelled Spherocytes Cancelled Sickle Cells Cancelled Target Cells Cancelled Tear Drop Cells Cancelled Ovalocytes Cancelled Stomatocytes Cancelled Gong-Dolliver Bodies Cancelled Brijesh Cells Cancelled Bite Cells Cancelled Crenated Cell Cancelled Acanthocytes (Spur) Cancelled Rouleaux Cancelled Schistocytes Cancelled PT 12.3 INR 0.9 APTT 21.1 L Sodium 138 Potassium 4.3 Chloride 103 Carbon Dioxide 28.0 Anion Gap 7 BUN 26 H Creatinine 1.00 Estim Creat Clear Calc 62.51 Est GFR (MDRD) Af Amer 92 Est GFR (MDRD) Non-Af 76 BUN/Creatinine Ratio 26.1 H Glucose 210 H Calcium 9.2 Total Bilirubin 0.50 AST 19 ALT 19 Alkaline Phosphatase 96 Total Protein 7.5 Albumin 3.0 L Globulin 4.5 H Albumin/Globulin Ratio 0.7 L 03/16/23 17:53 WBC 6.7 Corrected WBC RBC 3.74 L Hgb 11.2 L Hct 34.7 L MCV 92.8 MCH 29.9 MCHC 32.3 RDW Std Deviation 47.1 H RDW Coeff of Javier 13.9 Plt Count 316 MPV 9.6 Immature Gran % (Auto) 0.400 Neut % (Auto) 72.9 H Lymph % (Auto) 15.4 L Moody % (Auto) 8.7 Eos % (Auto) 1.9 Baso % (Auto) 0.7 Absolute Neuts (auto) 4.9 Absolute Lymphs (auto) 1.03 Total Counted Neutrophils % (Manual) Band Neutrophils % Lymphocytes % (Manual) Monocytes % (Manual) Eosinophils % (Manual) Basophils % (Manual) Metamyelocytes % Myelocytes % Promyelocytes % Blast Cells % Plasma Cell % (Manual) Other Cells % Nucleated RBC % 0 Nucleated RBCs/100 WBC Differential Comment Diff Path Review Hypersegmented Neuts Atypical Lymphocytes Reactive Lymphocytes Smudge Cells Toxic Granulation Toxic Vacuolation Dohle Bodies Sofia Rods Platelet Estimate Plt Morphology Comment RBC Morphology Polychromasia Hypochromasia Poikilocytosis Basophilic Stippling Anisocytosis Microcytosis Macrocytosis Spherocytes Sickle Cells Target Cells Tear Drop Cells Ovalocytes Stomatocytes Gong-Dolliver Bodies [place] Cells Bite Cells Crenated Cell Acanthocytes (Spur) Rouleaux Schistocytes PT INR APTT Sodium Potassium Chloride Carbon Dioxide Anion Gap BUN Creatinine Estim Creat Clear Calc Est GFR (MDRD) Af Amer Est GFR (MDRD) Non-Af BUN/Creatinine Ratio Glucose Calcium Total Bilirubin AST ALT Alkaline Phosphatase Total Protein Albumin Globulin Albumin/Globulin Ratio Radiography Diagnostic Testing: Clinical Impression(s) from Imaging Studies Soft Tissue Neck CT 08/19/22 17:10 IMPRESSION: 1. There is a heterogeneous mass along the left side of the thyroid cartilage. This measures 36 x 15 mm. There is destruction of the left thyroid cartilage. Mass extends inferiorly along the tracheostomy tube. 2. 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 3. Source of the bleeding is not identified. Electronically Signed: Shan Tan MD at 19:08 EDT , Chest CTA 08/19/22 18:24 IMPRESSION: Bilateral calcified pleural plaques with subpleural nodules. Electronically Signed: Shan Tan MD at 19:14 EDT , Discharge Plan Triage Chief Complaint: Wound ED Provider: Len Guzman Dx/Rx/DC Orders Clinical Impression: Laryngeal cancer, Hemoptysis, Tracheostomy in place Prescriptions: No Action levothyroxine 150 mcg capsule 150 mcg capsule 100 mcg PO QDAY paroxetine HCl [Paxil] 20 mg tablet 20 mg PO QDAY atorvastatin 80 mg tablet 80 mg PO QDAY lisinopril 20 MG tablet 10 mg PO DAILY acetylcysteine 200 mg/mL (20 %) solution 3 ml inhalation Q8H PRN (Reason: Secretions) sennosides [senna] 8.6 mg Tablet 8.6 mg PO BID PRN (Reason: Constipation) trazodone 50 mg Tablet 25 mg PO QHS polyethylene glycol 3350 17 gram Powder In Packet 17 g PO BREAKFAST glipizide 10 mg Tablet 20 mg PO DAILY oxycodone 5 mg/5 mL Solution 5 mg PO Q4H PRN (Reason: Pain) tamsulosin 0.4 mg Capsule 0.4 mg PO QHS isosorbide dinitrate 20 mg Tablet 20 mg PO TID Rx Instructions: allow nitrate-free interval of 12-14 hrs per 24-hr period metformin 1,000 mg Tablet 1,000 mg PO BID fluticasone propionate 100 mcg/actuation Blister With Device 1 inh INHALATION Q12H Rx Instructions: give with salmeterol salmeterol 50 mcg/dose Blister With Device 1 inh INHALATION Q12H Rx Instructions: give w/fluticasone 100 albuterol sulfate [Ventolin HFA] 90 mcg/actuation Hfa Aerosol Inhaler 2 puff INHALATION Q4H docusate sodium 100 mg Tablet 100 mg PO DAILY loratadine [Loradamed] 10 mg Tablet 10 mg PO DAILY insulin glargine [Lantus Solostar U-100 Insulin] 100 unit/mL (3 mL) Insulin Pen 8 unit SUBCUT BREAKFAST fluticasone propionate 55 mcg/actuation Aero Powdr Breath Act W/Sensor 1 inh INHALATION Q12H clopidogrel [Plavix] 75 mg tablet 75 mg PO DAILY Qty: 1 0RF Primary Care Provider: Arnaud Garg Referrals: Arnaud Garg MD [Primary Care Provider] - Disposition Disposition: Acute Care Hospital Discharge Location: [facility]
[2022-08-19 17:42] LABS: International Normalized Ratio 0.9; Partial Thromboplast Time 21.1 Seconds (24.1-36.2); Prothrombin Time (Protime)PT. 12.3 SECONDS (11.7-14.9)
[2022-08-19 18:00] LABS: Absolute Lymphocyte Count 1.03 X10^3/uL (0.83-4.51); Absolute Neutrophil Count 4.9 X10^3/uL (2.0-7.7); Basophil# 0.05 X10^3/uL; Basophil% 0.7 % (0-1); Eosinophil# 0.13 X10^3/uL; Eosinophils% 1.9 % (0-5); Hematocrit 34.7 % (40-54); Hemoglobin 11.2 g/dL (13.0-16.5); Lymphocyte # 1.03 X10^3/ul (0.83-4.51); Lymphocyte % 15.4 % (19-41); Mean Corp Hgb Conc 32.3 g/dL (32-36); Mean Corpuscular Hgb 29.9 pg (27.0-32.0); Mean Corpuscular Volume 92.8 fL (80-94); Mean Platelet Vol. 9.6 fl (6.2-12.0); Monocyte# 0.58 X10^3/uL; Monocyte% 8.7 % (0-10); NRBC Flagged by Analyzer 0 % (0-5); Neutrophil # 4.87 X10^3/uL (2.7-7.7); Neutrophil % 72.9 % (47-70); Platelet Count 316 K/mm3 (150-450); RBC Distribution Width CV 13.9 % (11.6-14.6); RBC Distribution Width SD 47.1 fl (35.1-43.9); Red Blood Count 3.74 M/mm3 (4.6-6.2); White Blood Count 6.7 K/mm3 (4.4-11.0)
[2022-08-19 18:00] LABS: ALB/GLOB Ratio 0.7 RATIO (0.9-2.4); AST(SGOT) 19 U/L (15-37); Alanine Aminotransfer ALT/SGPT 19 U/L (16-61); Alkaline Phosphatase 96 U/L (45-117); Anion Gap 7 (5-15); BUN 26 mg/dL (7-18); BUN/Creat Ratio 26.1 RATIO (10-20); Calcium,Total 9.2 mg/dL (8.5-10.1); Chloride 103 mmol/L (98-107); EST Glomerular Filtration Rate 76 mL/min (>60); Est Glom Filt Rate - Afr Amer 92 mL/min (>60); Estimated Creatinine Clearance 62.51 ml/min; Globulin 4.5 g/dL (2.2-4.2); Glucose 210 mg/dL (74-106); Potassium 4.3 mmol/L (3.5-5.1); Protein, Total 7.5 g/dL (6.4-8.2); Sodium Level 138 mmol/L (136-145)
--- NOTE | 2022-08-19 18:24 | CT_ITS ---
STUDY: CTA Chest WO/W Contrast Injection 08/19/2022 7:11 PM REASON FOR EXAM: Male, 82 years old. Hemoptysis TECHNIQUE: The examination was performed with the intravenous administration of IV 100mL Isovue-370 contrast material. Post-processing of the angiographic images was performed, with axial imaging and 3D reconstruction. MIPS images were obtained. Individualized dose optimization techniques were used for this CT. COMPARISON: None. FINDINGS: There are degenerative changes of the shoulders. There is no pneumothorax. Bilateral calcified pleural plaques with subpleural nodules. For information about the laryngeal mass please see CT neck of the same day. There are calcifications of the coronary arteries. Normal mediastinum. Normal hilar regions. Normal pulmonary arteries. There is atherosclerotic calcification of the aortic arch with tortuosity and elongation of the aortic arch and descending thoracic aorta. There are multi-level degenerative changes of the thoracic spine. There are no acute findings of the upper abdomen. CT/CTA Chest W/WO Contrast IMPRESSION: Bilateral calcified pleural plaques with subpleural nodules. Electronically Signed: Shan Tan MD at 19:14 EDT ,
[2022-08-20] VITALS: BP 163/76; PULSE 54
== END 2022-08-20 01:48 | disposition short-term general hospital (02) ==
PROVIDERS: Emergency Provider Emergency Medicine; PCP Family Medicine; Visit Provider Emergency Medicine
DX: C32.9 Malignant neoplasm of larynx, unspecified (principal); Z93.0 Tracheostomy status; J43.9 Emphysema, unspecified; E11.9 Type 2 diabetes mellitus without complications; E78.5 Hyperlipidemia, unspecified; R04.2 Hemoptysis; I25.10 Atherosclerotic heart disease of native coronary artery without angina pectoris; Z87.891 Personal history of nicotine dependence
CPT/HCPCS: 31720; 70491; 71275; 80053; 85025; 85610; 85730; 99285; Q9967